=== PATIENT | female | born 1955 | race Caucasian/White ===

== ENCOUNTER → 2022-01-11 09:09 | Outpatient (CLI) | payer MEDICARE, SELFPAY ==
--- NOTE | ~2022-01-11 | CT_ITS ---
EXAMINATION: CT lung screening DATE: 01/11/2022 09:22 INDICATION: Personal history of tobacco dependence TECHNIQUE: Computed tomography (CT) of the chest was performed without intravenous contrast. The dose -length product was 121.81 mGy-cm. Automated exposure control and iterative reconstruction technique were employed. COMPARISON: None FINDINGS: No significant pleural or pericardial effusion. Heart size normal. No thoracic lymphadenopa thy. There is atherosclerosis of the aorta and coronary arteries. Small hiatal hernia. There is emphy sema. No endobronchial lesions. There is a 3 mm pleural-based nodule posteriorly on the right there i s a 2 mm pleural-based nodule on the right at the minor fissure. No pneumothorax. No endobronchial le sions. Mild thoracic spondylosis. No acute osseous abnormality. IMPRESSION: 1. Lung-RADS category 2: Benign appearance or behavior. Continue annual screening with noncontrast lo w-dose chest CT in 12 months. Reviewed, dictated and finalized at location A. IMPRESSION: 1. Lung-RADS category 2: Benign appearance or behavior. Continue annual screeni ng with noncontrast low-dose chest CT in 12 months.
== END ==
PROVIDERS: PCP Student in an Organized Health Care Education/Training Program; Visit Provider Student in an Organized Health Care Education/Training Program
DX: Z12.2 Encounter for screening for malignant neoplasm of respiratory organs (principal); F17.210 Nicotine dependence, cigarettes, uncomplicated
CPT/HCPCS: 71271

== ENCOUNTER → 2022-06-24 14:42 | Outpatient (CLI) | payer MEDICARE, SELFPAY ==
--- NOTE | ~2022-06-24 | DEXA_ITS ---
Bone Density Report Name: NADIRA CARRERA Age: 66 Sex: Female Ethnicity: White Date of : 1955 Indication: postmenopausal; screening for osteoporosis; asthma or emphysema; Referring Provider: Felicia, Dandy Study: Bone densitometry was performed. Exam Date: June 24, 2022 Accession number: [id number] Bone Density: Region BMD T-score Z-score Classification AP Spine (L1-L4) 1.010 -0.3 1.6 Normal Femoral Neck (Left) 0.618 -2.1 -0.4 Osteopenia Total Hip (Left) 0.810 -1.1 0.3 Osteopenia Femoral Neck (Right) 0.648 -1.8 -0.2 Osteopenia Total Hip (Right) 0.745 -1.6 -0.3 Osteopenia Total Hip Mean 0.778 -1.4 0.0 Osteopenia World Health Organization criteria for BMD impression classify patients as: Normal (T-score at or above -1.0), Osteopenia (T-score between -1.0 and -2.5), or Osteoporosis (T-score at or below -2.5). 10-year Fracture Risk(1): Major Osteoporotic Fracture 11% Hip Fracture 1.8% Reported Risk Factors: [place] (), Neck BMD=0.618, BMI=30.8 (1) FRAX(R) Version 3.08. Fracture probability calculated for an untreated patient. Fracture probability may be lower if the patient has received treatment. Clinical Information Provided by Patient: Has used the following medications: Vitamin D, Calcium, MTV Has the following medical conditions: Asthma or Emphysema Patient maximum height was 64.0 Menopause Age: 54 No regular weight bearing exercise Drinks caffeinated beverages Onset of menses at age 13 Number of children 3 Impression: The patient has low bone mass, based on the Left Femoral Neck T-score. The patient has an estimated ten-year risk of hip fracture of 1.8% and an estimated ten-year risk of major fracture of 11%, based on the WHO FRAX algorithm. Discussion: BONE DENSITY IS LOW AT ONE OR MORE SKELETAL SITES. This patient's lowest T-score is low at one or more skeletal sites. It meets the World Health Organization's (WHO) criteria for ?low bone mass? (T-score between -1.0 and -2.5). The patient's 10-year risk of fracture as calculated by FRAX is less than the threshold where pharmacological therapy is recommended by the National Osteoporosis Foundation (NOF). However, all treatment decisions require clinical judgment and consideration of individual patient factors, including patient preferences, comorbidities, previous drug use, risk factors not captured in the FRAX model (e.g., frailty, falls, vitamin D deficiency, increased bone turnover, interval significant decline in bone density) and possible under or overestimation of fracture risk by FRAX. The patient should follow a healthful lifestyle (good nutrition with adequate calcium and vitamin D, and appropriate weight-bearing exercise). Follow-Up: Consider repeating this study in 2 to 3 years to reassess this patient's sta
--- NOTE | ~2022-06-24 | MM_ITS ---
EXAMINATION: MM screening [place] BI w morro HISTORY: Screening mammogram TECHNIQUE: Craniocaudal and mediolateral oblique 3-D tomosynthesis images were obtained and synthetic 2-D images were generated. CAD analysis was submitted and interpreted. COMPARISON: 09/14/2013 BREAST PARENCHYMAL COMPOSITION: There are scattered areas of fibroglandular density. FINDINGS: No suspicious mass, calcification, or architectural distortion are identified in either devon ast to suggest malignancy. There has been no suspicious interval change. IMPRESSION: 1. No mammographic evidence of malignancy. 2. Recommend routine screening mammography in one year. BI-RADS Category 1: Negative Reviewed, dictated and finalized at location A. AL SHELTER SUPERVISOR
== END ==
PROVIDERS: PCP Student in an Organized Health Care Education/Training Program; Visit Provider Student in an Organized Health Care Education/Training Program
DX: Z12.31 Encounter for screening mammogram for malignant neoplasm of breast (principal); Z78.0 Asymptomatic menopausal state; M85.852 Other specified disorders of bone density and structure, left thigh; M85.851 Other specified disorders of bone density and structure, right thigh
CPT/HCPCS: 77063; 77067; 77080

== ENCOUNTER 2022-10-09 09:30 | Emergency (ER) | payer MEDICARE, SELFPAY ==
[2022-10-09] VITALS (12 sets, daily range): BP systolic 119–149; BP diastolic 61–86; PULSE 80–91; RESP 12–20; TEMP 36.4; O2SAT 99–100
--- NOTE | ~2022-10-09 | XR_ITS ---
EXAMINATION: XR chest 2V 10/09/2022 10:14 INDICATION: Seizure. Weakness. Upper back spasm. PROCEDURE: 2 view chest COMPARISON: No prior studies for comparison. FINDINGS: The lungs are clear. The cardiomediastinal silhouette is within normal limits. There are no pleural effusions. There is no pneumothorax suspected. IMPRESSION: 1: NO ACUTE CARDIOPULMONARY DISEASE. Reviewed, dictated and finalized at location []
--- NOTE | ~2022-10-09 | CT_ITS ---
EXAMINATION: CT brain wo con DATE: 10/09/2022 10:06 INDICATION: Seizure. TECHNIQUE: Computed tomography (CT) of the head was performed without intravenous contrast. The dose- length product was 605.33 mGy-cm. Automated exposure control and iterative reconstruction technique w ere employed. COMPARISON: None FINDINGS: No acute intracranial hemorrhage, infarction, mass or mass effect. No ventriculomegaly or m idline shift. Basilar cisterns are patent. There is intracranial atherosclerosis. Brain parenchymal v olume is normal for age. There is intracranial atherosclerosis. Paranasal sinuses are unremarkable. S mall right mastoid effusion. IMPRESSION: 1. No acute intracranial abnormality. Reviewed, dictated and finalized at location []
--- NOTE | 2022-10-09 10:17 | ED.SEIZURE ---
HPI - Seizure General Chief Complaint: Seizure Stated Complaint: SEIZURE Time Seen by Provider: 10/09/22 09:32 History of Present Illness HPI Narrative: Patient is a 66-year-old female who presents to the ER with concerns for seizure. Patient was having some back spasms in her right upper back. Family was nearby. Patient then started to stare off to the right and flex both of her upper arms over to the right side. She began to shake rapidly for approximately 30 seconds. Patient then had 10 minutes of confusion after the seizure episode. Patient has no previous history of seizure. No trauma to the head. Patient has no other complaints at this time. No back pain. She had no loss of urine and had no tongue biting. Related Data Allergies Allergy/AdvReac Type Severity Reaction Status Date / Time simvastatin Allergy Unknown Cramping Verified 10/09/22 09:50 of the Muscles Review of Systems Review of Systems: All systems reviewed & are unremarkable except as noted in HPI and below Constitutional: Constitutional: Denies chills, Denies fatigue and Denies fever(s) ENT: Denies nasal congestion and Denies sore throat Cardiovascular: Cardiovascular: Denies chest pain, Denies rapid heart rate and Denies radiating jaw, neck or arm pain Respiratory: Respiratory: Denies cough and Denies dyspnea Gastrointestinal: Gastrointestinal: Denies abdominal pain, Denies nausea and Denies vomiting Musculoskeletal: Musculoskeletal: Reports back pain, Denies arthralgias and Denies joint swelling Neurologic: Denies headache(s), Denies focal weakness and Denies numbness Comments: + seizure PMFSH Past Medical History Medical History (Updated 10/09/22 @ 12:16 by Juan Alberto Alcantara MD) Diabetes Hyperlipidemia Hypertension Surgical History Surgical History (Updated 10/09/22 @ 10:19 by Juan Alberto Alcantara MD) No pertinent past surgical history Family History Family History (Updated 11/17/15 @ 23:21 by DOCTOR UNKNOWN) Father Hypertension Cerebrovascular accident Family history of diabetes mellitus in first degree relative Mother Patient's mother is in good health Sibling Patient's sister is in good health Patient's brother is in good health Social History Social History Smoking status: Never smoker Alcohol intake: current Exam Narrative: GENERAL: Well-appearing, well-nourished, and in no acute distress. HEAD: Normocephalic, atraumatic. ENT: Mucous membranes moist. Normal tongue. CHEST: Clear to auscultation. No respiratory distress. HEART: Regular rate and rhythm. Normal peripheral pulses. ABDOMEN: Soft, nontender, nondistended. Back: No reproducible midline or paraspinal muscular tenderness to the T/L-spine. EXTREMITIES: Normal range of motion. No edema. SKIN: Warm, dry, no rash. NEURO: No focal deficits. Alert and oriented x3. PSYCH: Normal mood and affect. Course Course Emergency Course: Patient resting comfortably. Educated her and family about lab results and diagnosis. Have consulted neurology, Dr. Leon. Recommends outpatient follow-up and no initiation of antiepileptics. Patient will need to return to the ER should she have an additional seizure. Patient given driving restriction. Vital Signs Vital signs: Vital Signs Temperature 97.6 F 10/09/22 09:32 Pulse Rate 80 10/09/22 09:32 Respiratory Rate 13 10/09/22 09:32 Blood Pressure 132/86 10/09/22 09:32 Pulse Oximetry 100 10/09/22 09:32 Oxygen Delivery Room Air 10/09/22 09:32 Temperature 97.6 F 10/09/22 09:32 Pulse Rate 91 10/09/22 11:30 Respiratory Rate 15 10/09/22 11:30 Blood Pressure 119/61 10/09/22 11:16 Pulse Oximetry 100 10/09/22 11:30 Oxygen Delivery Room Air 10/09/22 09:32 MDM - Seizure Lab Data 10/09/22 10:21 10/09/22 10:21 Labs: Lab Results 10/09/22 10/09/22 Range/Units 10:21 11:25 WBC 10.7 H (4.5-10.0) K/mm
[2022-10-09 10:26] LABS: Basophils Absolute Auto 0.1 K/mm3 (0.0-0.1); Basophils Percent Auto 0.7 % (0.2-1.2); Eosinophils Absolute Auto 0.1 K/mm3 (0-0.3); Eosinophils Percent Auto 1.1 % (0-4.4); Hematocrit 36.7 % (37.0-47.0); Hemoglobin 11.8 g/dL (12.0-15.0); Immature Granulocyte Absolute 0.05 K/mm3 (0.00-0.031); Immature Granulocyte Percent A 0.5 % (0-0.5); Lymphocytes Absolute Auto 2.52 K/mm3 (0.9-3.2); Lymphocytes Percent Auto 23.7 % (18.3-44.2); Mean Corpuscular HGB Conc 32.2 g/dl (32-36); Mean Corpuscular Hemoglobin 28.9 pg (26-34); Mean Corpuscular Volume 89.7 fl (80-100); Mean Platelet Volume 11.9 fl (7.4-10.4); Monocytes Absolute Auto 0.6 K/mm3 (0.1-0.6); Monocytes Percent Auto 5.4 % (2.6-8.5); Neutrophils Absolute Auto 7.3 K/mm3 (1.3-6.7); Neutrophils Percent Auto 68.6 % (45.5-73.1); Platelet Count Result 169 k/mm3 (150-375); Red Blood Count 4.09 M/mm3 (4.2-5.4); Red Cell Distribution Width 13.6 % (11.5-14.5); White Blood Count 10.7 K/mm3 (4.5-10.0)
[2022-10-09 10:35] LABS: Ethanol < 10 mg/dL (<10)
[2022-10-09 10:36] LABS: Alanine Aminotransferase 20 U/L (6-35); Albumin Level 4.9 g/dL (3.5-5.1); Alkaline Phosphatase 61 U/L (38-126); Anion Gap 9 mmol/L (8-16); Aspartate Amino Transferase 21 U/L (14-36); Bilirubin,Total 0.6 mg/dL (0.2-1.3); Blood Urea Nitrogen 29 mg/dL (7-17); Calcium 9.2 mg/dL (8.4-10.2); Carbon Dioxide 24 mmol/L (22-30); Chloride 104 mmol/L (98-107); Estimated CRCL calculation 36 ml/min; Estimated Glomerular Filt Rate 38; Glucose 144 mg/dL (65-110); Potassium 4.6 mmol/L (3.4-5.0); Sodium 137 mmol/L (137-145)
[2022-10-09 11:32] LABS: Appearance Urine Clear (Clear); Bilirubin Urine Negative (Negative); Blood Urine Negative (Negative); Color Urine Yellow (Yellow); Glucose Urine UA Negative (Negative); Ketones Urine Negative (Negative); Leukocyte Esterase Ur Negative LEU/UL (Negative); Nitrate Urine Negative (Negative); Protein Urine Negative (Negative); Specific Grav Ur 1.013 (1.001-1.035); Urobilinogen Urine 0.2 mg/dL (<2.0); pH Urine 5.5 (5.0-9.0)
[2022-10-09 11:42] LABS: Add Urine Microscopic? NO
[2022-10-09 11:47] LABS: Benzodiazepines Screen Urine Negative (Negative)
[2022-10-09 11:50] LABS: Amphetamine Screen Urine Negative (Negative); Cannabinoid Screen Urine Negative (Negative); Cocaine Screen Urine Negative (Negative); Methadone Screen Urine Negative (Negative); Opiate Screen Urine Negative (Negative); Phencyclidine Screen Urine Negative (Negative)
[2022-10-09 11:53] LABS: Barbiturate Screen Urine Negative (Negative)
== END 2022-10-09 12:32 | disposition home or self-care (01) ==
PROVIDERS: Emergency Provider Emergency Medicine; PCP Student in an Organized Health Care Education/Training Program
DX: R56.9 Unspecified convulsions (principal); E11.9 Type 2 diabetes mellitus without complications; E78.5 Hyperlipidemia, unspecified; I10 Essential (primary) hypertension
CPT/HCPCS: 36415; 70450; 71046; 80053; 80307; 81003; 85025; 99284

== ENCOUNTER → 2023-02-04 08:22 | Outpatient (CLI) | payer MEDICARE, SELFPAY ==
--- NOTE | ~2023-02-04 | CT_ITS ---
CT Scan of the Chest without Contrast: Clinical Indication: Lung cancer screening, personal history of nicotine dependence Technique: Contiguous sections were acquired throughout the chest without intravenous contrast. Dose reduction technique was used on this scan by utilizing automated exposure control and iterative recon struction technique. The dose-length product (DLP) was 146.89 mGy-cm. COMPARISON: 01/11/2022 Findings: There is no evidence of any significant mediastinal, hilar or axillary lymphadenopathy. Atherosclerot ic calcifications of the aorta and coronary arteries are present.. There is no evidence of pleural or pericardial effusion. The lungs are clear. No pulmonary nodules or infiltrates are noted. Images through the upper abdomen reveal no abnormalities. Impression: Lung RADS 1: Negative. 12 month follow-up screening CT advised. Reviewed, dictated and finalized at location . Impression: Lung RADS 1: Negative. 12 month follow-up screening CT advised.
== END ==
PROVIDERS: PCP Student in an Organized Health Care Education/Training Program; Visit Provider Student in an Organized Health Care Education/Training Program
DX: Z12.2 Encounter for screening for malignant neoplasm of respiratory organs (principal); F17.210 Nicotine dependence, cigarettes, uncomplicated
CPT/HCPCS: 71271

== ENCOUNTER → 2023-02-04 08:25 | Outpatient (CLI) | payer MEDICARE, SELFPAY ==
--- NOTE | ~2023-02-04 | MR_ITS ---
MRI of the brain Clinical History: Seizure Technique: Axial and sagittal T1-weighted images were acquired. These were followed by axial T2-weigh sunshine, diffusion weighted, gradient, and FLAIR images. Findings: No acute infarct, intracranial hemorrhage, or mass lesion identified. There are minimal chr onic white matter changes in the periventricular white matter bilaterally. Ventricles and subarachnoid spaces are unremarkable. Orbits are unremarkable. Paranasal sinuses and m astoid air cells are clear. Major intracranial flow voids appear intact. Sagittal midline structures are intact. IMPRESSION: No acute infarct, intracranial hemorrhage, or mass lesion. Minimal chronic microvascular ischemic changes. Reviewed, dictated and finalized at location M.
== END ==
PROVIDERS: PCP Student in an Organized Health Care Education/Training Program; Visit Provider Student in an Organized Health Care Education/Training Program
DX: R56.9 Unspecified convulsions (principal)
CPT/HCPCS: 70551

== ENCOUNTER 2024-02-06 08:07 | Outpatient (CLI) | payer MEDICARE, SELFPAY ==
--- NOTE | ~2024-02-06 | CT_ITS ---
CT Scan of the Chest without Contrast: Clinical Indication: Lung cancer screening, nicotine dependence Technique: Contiguous sections were acquired throughout the chest without intravenous contrast. Dose reduction technique was used on this scan by utilizing automated exposure control and iterative recon struction technique. The dose-length product (DLP) was 107.13 mGy-cm. Findings: There is no evidence of any significant mediastinal, hilar or axillary lymphadenopathy. Extensive cor onary artery calcifications are present. There is no evidence of pleural or pericardial effusion. The lungs are clear. No pulmonary nodules or infiltrates are noted. Images through the upper abdomen reveal no abnormalities. Impression: Lung RADS 1: Negative. 12 month follow-up screening CT advised. Reviewed, dictated and finalized at location . Impression: Lung RADS 1: Negative. 12 month follow-up screening CT advised.
== END 2024-02-06 08:08 | disposition home or self-care (01) ==
LOC: MICIMG 08:09
PROVIDERS: PCP Student in an Organized Health Care Education/Training Program; Visit Provider Student in an Organized Health Care Education/Training Program
DX: Z12.2 Encounter for screening for malignant neoplasm of respiratory organs (principal); F17.210 Nicotine dependence, cigarettes, uncomplicated
CPT/HCPCS: 71271

== ENCOUNTER 2024-07-27 06:16 | Emergency (ER) | payer MEDICARE, SELFPAY ==
[2024-07-27] VITALS (19 sets, daily range): BP systolic 105–150; BP diastolic 56–94; PULSE 64–80; RESP 12–25; TEMP 36.3; O2SAT 99–100
--- NOTE | ~2024-07-27 | XR_ITS ---
Clinical Indication: Chest pain AP and lateral views of the chest: Comparison: 10/09/2022 Findings: The lungs are clear, without evidence of focal consolidation or pleural effusion. Cardiome diastinal silhouette is within normal limits. Bones and soft tissues are unremarkable. Impression: Normal chest. Reviewed, dictated and finalized at location . Impression: Normal chest.
--- NOTE | ~2024-07-27 | CT_ITS ---
CTA chest abdomen pelvis Ordering provider: Charley Degn MD History: . CP radiating to back; r/o dissection . Comparison: None. Technique: CT angiogram chest, abdomen and pelvis was performed following timed intravenous injection of contrast. Thin slice axial images and reformatted coronal images were obtained. Three dimensional reformatted images of the chest were also obtained using a [employer] workstation. Radiation reduction t echnique utilized. The dose-length product was 762.96 mGy-cm. 100 mL Omnipaque 350 was given IV. FINDINGS: CHEST: --THORACIC AORTA: Mild atheromatous disease. No aneurysm, dissection or mediastinal hematoma. Ascending aorta measures 3.9 cm. --GREAT VESSELS: Normal as visualized. --PULMONARY ARTERIES: No pulmonary embolus. --VISUALIZED THORACIC INLET: Normal. --MEDIASTINUM: Coronary arteries: Mild atheromatous disease. Heart/other: The heart is not enlarged. Lymph nodes: No mediastinal or hilar adenopathy. normal. --LUNGS: No pulmonary nodules or masses. No infiltrates. No pneumothorax. trace pleural of pleural effusions s een bilaterally posteriorly. --MUSCULOSKELETAL: Superficial soft tissues: The superficial soft tissues are normal. Bones: Age appropriate degenerative changes of the spine. ABDOMEN/PELVIS: --MUSCULOSKELETAL: Bones: Age appropriate degenerative changes of the spine. Superficial soft tissues: The superficial soft tissues are normal. --UPPER ABDOMINAL ORGANS: Liver: Normal. Gallbladder: Normal. Spleen: Normal. Stomach/duodenum: Small sliding hiatus hernia. The patient at a fracture Pancreas: Normal. Adrenals: Normal. Kidneys: Normal. --PELVIC ORGANS: The bladder is normal. No bladder stones. --BOWEL AND MESENTERY: Colon: No evidence of diverticulitis.. Normal appendix. Small Bowel: Normal. No obstruction. Peritoneum/mesentery: No free air or free fluid. No mesenteric lymphadenopathy. --RETROPERITONEUM: No retroperitoneal lymphadenopathy. --ARTERIES: ABDOMINAL AORTA: Mild atheromatous disease. No aneurysm or dissection. RENAL ARTERIES: Atherosclerotic changes of the origin of the left. Otherwise, Normal. CELIAC AXIS: Normal. Atherosclerotic changes near to the origin SMA: Normal. Atherosclerotic changes near to the origin PARISH: Normal. ILIAC AND VISUALIZED FEMORAL ARTERIES: Atherosclerotic changes in both common carotid arteries with mild narrowing. MESENTERIC ARTERIES: Normal. IMPRESSION: CHEST: 1. No evidence of aortic dissection or pulmonary embolism. 2. Trace of bilateral pleural effusions seen posteriorly. ABDOMEN/PELVIS: 1. No evidence of aortic dissection. 2. No evidence of appendicitis, diverticulitis or intestinal obstruction 3. Small sliding hiatus hernia. Reviewed, dictated and finalized at location A.
--- NOTE | 2024-07-27 06:20 | ECG_ITS ---
Test Date: 2024-07-27 06:23:14 Measurements Intervals [place] Rate: 66 P: 1 CA: 151 QRS: 22 QRSD: 79 T: 16 QT: 409 QTc: 432 Interpretive Statements SINUS RHYTHM POSSIBLE LEFT ATRIAL ENLARGEMENT LOW QRS VOLTAGE IN PRECORDIAL LEADS BASELINE ARTIFACT- I, II, III BORDERLINE ECG No previous ECG available for comparison Electronically Signed On 07-27-2024 06:30:37 CDT by Zoltan Andrews D.O.
[2024-07-27 06:29] LABS: Basophils Absolute Auto 0.1 K/mm3 (0.0-0.1); Basophils Percent Auto 0.9 % (0.2-1.2); Eosinophils Absolute Auto 0.4 K/mm3 (0-0.3); Eosinophils Percent Auto 5.5 % (0-4.4); Hematocrit 32.8 % (37.0-47.0); Hemoglobin 10.5 g/dL (12.0-15.0); Immature Granulocyte Absolute 0.04 K/mm3 (0.00-0.031); Immature Granulocyte Percent A 0.5 % (0-0.5); Lymphocytes Absolute Auto 2.23 K/mm3 (0.9-3.2); Lymphocytes Percent Auto 28.6 % (18.3-44.2); Mean Corpuscular Hemoglobin 30.3 pg (26-34); Mean Corpuscular Volume 94.8 fl (80-100); Mean Platelet Volume 11.9 fl (7.4-10.4); Monocytes Absolute Auto 0.6 K/mm3 (0.1-0.6); Monocytes Percent Auto 7.3 % (2.6-8.5); Neutrophils Absolute Auto 4.5 K/mm3 (1.3-6.7); Neutrophils Percent Auto 57.2 % (45.5-73.1); Platelet Count Result 195 k/mm3 (150-375); Red Blood Count 3.46 M/mm3 (4.2-5.4); Red Cell Distribution Width 14.1 % (11.5-14.5); White Blood Count 7.8 K/mm3 (4.5-10.0)
[2024-07-27 06:45] LABS: Alanine Aminotransferase 18 U/L (6-35); Albumin Level 4.2 g/dL (3.5-5.1); Alkaline Phosphatase 63 U/L (38-126); Anion Gap 10 mmol/L (4-12); Aspartate Amino Transferase 19 U/L (14-36); Bilirubin,Total 0.5 mg/dL (0.2-1.3); Blood Urea Nitrogen 25 mg/dL (7-17); Calcium 9.1 mg/dL (8.4-10.2); Carbon Dioxide 22 mmol/L (22-30); Chloride 108 mmol/L (98-107); Estimated CRCL calculation 38 ml/min; Estimated Glomerular Filt Rate 41; Glucose 187 mg/dL (65-110); Lipase 71 U/L (23-300); Potassium 4.8 mmol/L (3.4-5.0); Sodium 140 mmol/L (137-145)
[2024-07-27 06:58] LABS: Troponin I < 0.012 ng/mL (0.000-0.034)
--- OUTSIDE RECORDS SUMMARY | 2024-07-27 07:29 | XMS_ITS | Encounter Summary ---
Author Organization [facility] Address [facility] [place] [address] Care Team Providers Care Stripping Shovel Oiler Name Role Phone Dandy Duarte DO Primary Care Provider + Encounter Details Date Type Department Care Team (Late st Contact Info) Description 06/27/2024 MyChart Message Enc [facility] Family & Internal Medicine [facility] [address] [place] [address] Dandy Duarte DO [facility] [place] [address] Low blood pressure Social History Tobacco Use Types Packs/Day Years Used Date Smoking Tobacco: Former Cigarettes 1 25 Q uit: 03/21/2024 Passive Smoke Exposure: Current Smokeless Tobacco: Never Comments:Provider to counseling services director Alcohol Use Standard Drinks/Week Comments Not Currently 0 (1 standard drink = 0.6 oz pur e alcohol) PHQ-2 Answer Date Recorded Patient Health Questionnaire-2 Score 0 05/19/2024 Comments No Sex and Gender Information Value Date Recorded Sex Assigned at Female 05/05/2024 12:32 PM PRODUCT MANAGEMENT ANALYST Legal Sex Female 10:17 AM PRODUCT MANAGEMENT ANALYST Gender Identity Female 12/25/2021 9:32 AM CDT Sexual Orientation Not on file documented as of this encounter Progress Notes * Dandy Duarte DO - 06/28/2024 10:07 AM CDT Can stay off Jardiance for now and reassess at next OV. May need to cut metoprolol in half if BP continues to have issues. documented in this encounter Plan of Treatment Upcoming Encounters Date Type Department Care Team (Late st Contact Info) Description 08/17/2024 8:20 AM CDT Office Visit [facility] Family & Internal Medicine - [address] [phone] Dandy Duarte DO [address] [place] [phone] 09/03/2024 9:30 AM CDT Office Visit [facility] [phone] Pedrito Rai MD [address] [facility] [address] [place] [phone] documented as of this encounter Visit Diagnoses Not on filedocumented in this encounter Additional Health Concerns Assessment Noted Time PHQ-9 Depression Total Score: 0 05/02/19 21 10:38 AM PRODUCT MANAGEMENT ANALYST documented as of this encounter Care Teams Stripping Shovel Oiler Relationship Specialty Start Date End Date Dandy Duarte DO [address] [place] [phone] PCP - General FAMILY PRACTICE 06/06/22 documented as of this encounter
--- OUTSIDE RECORDS SUMMARY | 2024-07-27 07:29 | XMS_ITS | Continuity of Care Document ---
Author Organization [facility] Address [address] [facility] [place] [address] [place] [address] Phone Care Team Providers Care Automated Logistics Specialist Name Role Phone Reza No MD Unavailable Unavailable Allergies, Adverse Reactions, Alerts Substance Reaction Status Criticality latex Itching Active No Information poison dread extract Hives / Skin RashBlister Active No Information Medications Medication Instructions Dosage Effective Dates (start - stop) Status Comments metformin ER 500 mg tablet,extended release 24 hr take 3 Tablet by oral route every day with the evening meal 1500 MG - Active glimepiride 4 mg tablet take 1 tablet by oral route every day 4 MG - Active Lipitor 40 mg tablet take 1 tablet by oral route every day 40 MG - Active lisinopril 40 mg tablet take 1 tablet by oral route every day 40 MG - Active hydrochlorothiazide 25 mg tablet take 1 tablet by oral route every day 25 MG - Active varenicline 1 mg tablet take 1 tablet by oral route every day with glass of water after meals 1 MG - Active Procedures Procedure Date OFFICE/OUTPATIENT VISIT, NEW Advance Directives Directive Yes / No Effective Date File Name No Information Encounters Encounter Description Practice Location Reason(s) For Visit Diagnoses Date Provider Providers Copied on Encounter OFFICE/OUTPA TIENT VISIT, [facility], [address] [place] [address], [id number], [place] tel:[phone] [facility] HLP (chief complaint) DM (chief complaint) HTN (chief complaint) tobacco1 (chief complaint) Encntr screen mammogram for malignant neoplasm of breastEssential (primary) hypertensionMixed hyperlipidemiaType 2 diabetes mellitus without complicationsOther specified disorder of bone densityTobacco useEncounter for screening for cancer of colon [address], [place], [place], [id number] , [place]. tel:[phone] Family History Family Member Type Diagnosis Age At Onset Brother Problem of 72 for ? heart disea se Sister Problem Diabetes mellitus Sister Problem dementia Mother Problem of 86 from CVA and gloria ntia Father Problem of CAD 63 Payers Payer name Insurance type Covered republican ID Authoriza tion(s) No Information Social History Type Description Quantity Date Captured Comments Alcohol Use Details Caffeine Use Details Unknown Tobacco Use Status Light cigarette smok er (1-9 cigs/day) Smoking Status Heavy tobacco smoker Smoking Tobacco Use Details Cigarette: Age Started: 14 Cigarette: 1 Packs per day Sex Female Vital Signs Date / Time: Height Weight BMI Pulse Rate Blood Pressure Temperature Respiratory Rate Body Surface Area Head Circumference BMI percentile Pulse Ox Inhaled Ox 12:20 PM 63.00 in 172.60 lbs 30.5 7 kg/m eter (2) 84 /min 120/70 mm[Hg] 97.7 F 16 /min Chief Complaint And Reason For Visit From encounter dated '09/25/2023 11:59'. HLP (chief complaint). Description: Pt has HLP Pt take lipitor Pt denies any myalgia DM (chief complaint). Description: Pt has DM. Pt takes metformin and amaryl and her glucose is around 130s. Pt denies any polyuria polydipsia. Pt denies any neuropathy HTN (chief complaint). Description: Pt has HTN, Pt takes lisinopril and hctz and her bp is stable tobacco1 (chief complaint). Description: Pt is long time smoker. Pt denies any sob. Pt takes varenicline once per day only and she has been taking it for about 3 months. Pt states that it does help her with craving for tobacco but she has not been able to quit completely Pt does have some weird dream with med but no depression or anxiety or any suicidal thought. Plan Of Treatment Date Type Action Status Referral Ordered: MAMMOGRAM, SCREENING ordered History Of Present Illness Encounter Date Complaint History Of Prese nt Illness tobacco1 Pt is long time smoker. Pt denies any sob. Pt takes varenicline once per day only and she has been taking it for about 3 months. Pt states that it does help her with craving for tobacco but she has not been able to quit completely Pt does have some weird dream with med but no depression or anxiety or any suicidal thought. HLP Pt has HLP Pt ta ke lipitor Pt denies any myalgia DM Pt has DM. Pt ta kes metformin and amaryl and her glucose is around 130s. Pt denies any polyuria polydipsia. Pt denies any neuropathy HTN Pt has HTN, Pt t akes lisinopril and hctz and her bp is stable Instructions Date Instruction Additional Infor mation No Information Assessments Type Assessment Date assessment Encntr screen mammogram for enzo gnant neoplasm of breast assessment Essential (primary) hypertension assessment Mixed hyperlipidemia assessment Type 2 diabetes mellitus without complications assessment Other specified disorder of bone density assessment Tobacco use assessment Encounter for screening for canc er of colon Mental Status Date Cognitive Assessment Orientation - [place] ed to time, place, person, situation.
--- OUTSIDE RECORDS SUMMARY | 2024-07-27 07:29 | XMS_ITS | Clinical Summary ---
Author Organization [facility] Address [facility] [place] [address] Care Team Providers Care Dry Food Products Mixer Name Role Phone Dandy Duarte Kindra ROBERTO Primary Care Provider + Allergies Active Allergy Reactions Criticality Noted Date Comments Latex Itching Low 09/25/2023 Poison Viv Extract Contact Dermatitis,Hives 09/2023 Simvastatin Other (see comment) 10/09/2022 Cramps. Medications Multiple Vitamins-Mineral s (MULTIVITAL OR) Take 1 tablet by mouth daily. Active calcium carb-cholecalcif tony 600-800 MG-UNIT tablet Take 1 tablet by mouth daily. Active varenicline (CHANTIX) 1 MG tabletIndication s:Nicotine dependence, cigarettes, uncomplicated Take 1 tablet (1 mg total) by mouth 2 (two) times daily. 180 tablet 1 11/13/19 24 Active fluticasone propionate (FLONASE) 50 MCG/ACT nasal sprayIndications :Allergic rhinitis, unspecified seasonality, unspecified trigger SPRAY 1 SPRAY BY NASAL ROUTE EVERY DAY 24 mL 1 01/05/20 24 Active ezetimibe (ZETIA) 10 MG tablet Take 1 tablet (10 mg total) by mouth daily. 30 tablet 8 04/09/20 24 Active albuterol sulfate HFA 108 (90 Base) MCG/ACT inhalerIndicatio ns:Nicotine dependence, cigarettes, uncomplicated INHALE 2 PUFFS BY MOUTH EVERY 6 HOURS NEEDED FOR WHEEZE 18 g 1 04/15/20 24 Active glipiZIDE XL (GLUCOTROL XL) 10 MG 24 hr tabletIndication s:Type 2 diabetes mellitus without complication, without long-term current use of insulin ([facility] HHS/HCC) TAKE 1 TABLET (10 MG TOTAL) BY MOUTH DAILY WITH BREAKFAST. DO NOT BREAK OR CRUSH TABLET 90 tablet 1 05/07/19 25 Active metFORMIN ER (GLUCOPHAGE-XR) 500 MG 24 hr tabletIndication s:Type 2 diabetes mellitus without complication, without long-term current use of insulin (CMS/HCC HHS/HCC) TAKE 3 TABLETS (1,500 MG TOTAL) BY MOUTH DAILY 270 tablet 1 05/07/19 25 Active nitroglycerin (NITROSTAT) 0.[address] 1 tablet (0.4 mg total) under the tongue every 5 (five) minutes as needed for Chest Pain. Maximum of 3 doses. 90 tablet 3 05/06/19 25 2025 Active empagliflozin (JARDIANCE) 10 MG tabletIndication s:Type 2 diabetes mellitus without complication, without long-term current use of insulin (CMS/HCC HHS/HCC),Stage 3a chronic kidney disease (CKD) ([facility]) Take 1 tablet (10 mg total) by mouth daily. 30 tablet 2 05/19/19 25 Active Additional Information Patient not taking.Reported on 07/01/2024 hydroCHLOROthiaz ronen (HYDRODIURIL) 25 MG tabletIndication s:Hypertension associated with type 2 diabetes mellitus (CMS/HCC HHS/HCC) TAKE 1 TABLET (25 MG TOTAL) BY MOUTH DAILY. 90 tablet 1 06/07/19 25 Active atorvastatin (LIPITOR) 80 MG tabletIndication s:Hyperlipidemia associated with type 2 diabetes mellitus (CMS/HCC HHS/HCC) Take 1 tablet (80 mg total) by mouth nightly at bedtime. 90 tablet 1 06/07/19 25 Active metoprolol succinate ER (TOPROL-XL) 25 MG 24 hr tablet Take 1 tablet (25 mg total) by mouth daily. 30 tablet 11 06/11/19 25 Active ibuprofen (MOTRIN) 800 MG tabletIndication s:Arthritis Take 1 tablet (800 mg total) by mouth every 8 (eight) hours as needed. 90 tablet 06/18/19 25 Active aspirin 81 MG chewable tablet Chew 1 tablet (81 mg total) by mouth daily. Active lisinopril (PRINIVIL) 40 MG tabletIndication s:Hypertension associated with type 2 diabetes mellitus (CMS/HCC HHS/HCC) TAKE 1 TABLET BY MOUTH EVERY DAY 90 tablet 07/03/19 25 Active Blood Glucose Monitoring Suppl (ONE TOUCH ULTRA 2) w/Device KitIndications:T ype 2 diabetes mellitus without complication, without long-term current use of insulin ([facility] HHS/HCC) 1 Device by Does not apply route every morning. 1 kit 07/20/19 25 Active OneTouch Delica Lancets 33G MiscIndications: Type 2 diabetes mellitus without complication, without long-term current use of insulin (CMS/HCC HHS/HCC) 1 Device by Does not apply route every morning before breakfast. 100 each 3 07/20/19 25 Active Glucose Blood (BLOOD GLUCOSE TEST STRIPS) StripIndications :Type 2 diabetes mellitus without complication, without long-term current use of insulin ([facility] HHS/HCC) 1 Device by Does not apply route daily with breakfast. 100 strip 3 07/20/19 25 Active lisinopril (PRINIVIL) 40 MG tabletIndication s:Hypertension associated with type 2 diabetes mellitus (CMS/HCC HHS/HCC) Take 1 tablet (40 mg total) by mouth daily. 90 tablet 1 11/13/19 24 2024 Discontinued Active Problems Problem Noted Date Diagnosed Date Dyspnea on exertion 06/11/2024 New onset seizure (CMS/HCC HHS/HCC) 01/08/2023 Stage 3a chronic kidney disease (CKD) 06/06/2022 Class 1 obesity due to exces s calories with serious comorbidity and body mass index (BMI) of 32.0 to 32.9 in adult 05/02/2020 Vitamin D deficiency 05/02/2020 Hyperlipidemia associated wi th type 2 diabetes mellitus (CMS/HCC HHS/HCC) 09/26/2016 Diabetes mellitus (CMS/HCC HHS/HCC) 08/12/2016 Predisposition to allergic reaction 07/22/2016 Hypertension associated with type 2 diabetes mellitus (CMS/HCC HHS/HCC) 06/26/2016 History of hepatitis C 06/26/2016 Tobacco dependence syndrome 06/26/2016 Resolved Problems Problem Noted Date Diagnosed Date Resolved Date Family history of colon cancer 05/02/2020 12/01/2020 Encounters Date Type Department Care Team Description 07/19/2024 MyChart Message Enc [facility] Family & Internal Medicine [address] [phone] Dandy Duarte DO Request for glucose meter and supplies 07/05/2024 8:42 PM CDT - 07/05/2024 11:59 PM CDT Hospital Encounter [facility] [address] [place] [address] Bhanu Cramer MD Discharge Disposition: Home or Self Care (Routine Discharge) 07/05/2024 1:20 PM CDT Laboratory Only [facility] Internal [address] [phone] Dandy Duarte DO 07/05/2024 Travel 07/02/2024 Telephone [facility] [address] [address] Pedrito Rai MD Record Request 07/01/2024 8:41 AM CDT Anesthesia Event [facility] [place] [address] Jose Burkett MD 07/01/2024 6:09 AM CDT - 07/01/2024 1:40 PM CDT Hospital Encounter [facility] [place] [address] Pedrito Rai MD Satwani, Shiyam K, MD White, Jenna M, CRNA Discharge Disposition: Home or Self Care (Routine Discharge) 07/01/2024 Travel 06/28/2024 Telephone [facility] [address] [address] Ruchi Bethea, BANK RUNNER Results 06/27/2024 MyChart Message Enc [facility] Internal [address] [phone] Dandy Duarte DO Low blood pressure 06/24/2024 5:28 PM MOLD BREAKER - 06/24/2024 11:59 PM MOLD BREAKER Hospital Encounter [facility] [address] [place] [address] Pedrito Rai MD Discharge Disposition: Home or Self Care (Routine Discharge) 06/24/2024 9:20 AM MOLD BREAKER Laboratory Only [facility] Family & Internal [address] [phone] Dandy Duarte DO 06/24/2024 Travel 06/11/2024 8:30 AM MOLD BREAKER Office Visit [facility] [phone] Pedrito Rai MD Coronary Artery Disease (2mo) 06/11/2024 Hospital Orders Only [facility] [place] [address] [place] [address] Bhanu Cramer MD 06/11/2024 Telephone [facility] [place] [address] [place] [address] Pedrito Rai MD Schedule Test 06/11/2024 Travel 06/08/2024 Telephone [facility], [address] [address] Ruchi Bethea, BANK RUNNER Results 06/03/2024 2:35 PM MOLD BREAKER - 06/03/2024 11:59 PM MOLD BREAKER Hospital Encounter [facility] Non [facility]vasive [facility]iology [facility] [place] [address] Pedrito Rai MD Discharge Disposition: Home or Self Care (Routine Discharge) 06/03/2024 Travel 05/19/2024 8:00 AM MOLD BREAKER Office Visit [facility] Family & Internal [address] [phone] Dandy Duarte DO Diabetes (The patient presents for routine follow up. No questions or concerns. ) 05/19/2024 Travel 05/06/2024 Telephone [facility], [address] [address] Ruchi Bethea, BANK RUNNER Results 05/05/2024 12:35 PM MOLD BREAKER - 05/05/2024 11:59 PM MOLD BREAKER Hospital Encounter [facility] [place] [address] Pedrito Rai MD Discharge Disposition: Home or Self Care (Routine Discharge) 05/05/2024 Travel from Last 3 Months Immunizations Name Administration Dates Next Due COVID-19 Vaccine (Generic) 10/09/2020,09/18/2020 Fluzone High Dose (IIV, trivalent, 0.5mL) 2023 Fluzone High Dose - >Age 65 (Prefilled Syringe) 02/15/2022,12/22/2020 Influenza Adult (Generic) 12/21/2022,02/15/2022 [place] Coverage COVID-19 (ORIGINAL FO RMULATION, PURPLE CAP) mRNA, LNP-S, PF, 30 MCG/0.3 ML DOSE 03/29/2021,10/09/2020,09/18/2020 Pneumococcal (Pneumovax 23) 12/28/2021 Pneumococcal (Prevnar 13) 12/01/2020 Shingrix 01/22/2021,11/01/2020 Tdap (Generic) 06/28/2014 Family History Medical History Relation Comments Aneurysm Brother 1 Hypertension Brother 1 Aneurysm Brother 2 Asthma Daughter Diabetes Father Heart Attack Father Heart Disease Father Hypertension Father Alzheimers Mother Stroke Mother Diabetes Sister Relation Status Comments Brother 1 Alive Brother 2 Daughter Father Maternal Grandfather Maternal Grandmother Mother Paternal Grandfather Paternal Grandmother Sister Alive Social History Tobacco Use Types Packs/Day Years Used Date Smoking Tobacco: Former Cigarettes 1 25 Q uit: 03/21/2024 Passive Smoke Exposure: Current Smokeless Tobacco: Never Tobacco Cessation:Counseling Given: Not Answered Comments:Provider to career development counselor Alcohol Use Standard Drinks/Week Comments Not Currently 0 (1 standard drink = 0.6 oz pur e alcohol) PHQ-2 Answer Date Recorded Patient Health Questionnaire-2 Score 0 05/19/2024 Comments No Sex and Gender Information Value Date Recorded Sex Assigned at Female 05/05/2024 12:32 PM MOLD BREAKER Legal Sex Female 10:17 AM MOLD BREAKER Gender Identity Female 12/25/2021 9:32 AM CDT Sexual Orientation Not on file Last Filed Vital Signs Vital Sign Reading Time Taken Comments Blood Pressure 142/97 07/01/2024 1:05 PM CDT Pulse 68 07/01/2024 1:15 PM CDT Temperature 36.3 C (97.4 F) 07/01/2024 7:30 AM CDT Respiratory Rate 17 07/01/2024 1:15 PM CDT Oxygen Saturation 100% 07/01/2024 1:15 PM CDT Inhaled Oxygen Concentration - - Weight 81.1 kg (178 lb 12.7 oz) 07/01/2024 7:30 AM CDT Height 160 cm (5' 3 ) 07/01/2024 7:30 AM CDT Body Mass Index 31.67 07/01/2024 7:30 AM CDT Plan of Treatment Upcoming Encounters Date Type Department Care Team (Late st Contact Info) Description 08/17/2024 8:20 AM CDT Office Visit [facility] Family & Internal Medicine - [address] [phone] Dandy Duarte DO [address] [place] [phone] 09/03/2024 9:30 AM CDT Office Visit [facility] [phone] Pedrito Rai MD 3 [facility] [address] [place] [phone] Health Maintenance Due Date Last Done Comments Lung Cancer Screening 2004 Annual Medicare Wellness Visit 12/07/2019 Diabetes: Retinopathy Eye Exam 01/15/2023 01/15/2022 COVID-19 Vaccine ( season) 2024 12/23/2023, 12/21/2022, 03/29/2021, Additional history exists DTaP, Tdap and Td Vaccines (2 - Td or Tdap) 06/28/2024 06/28/2014 Mammogram Screening 11/05/2024 11/06/2023, Hemoglobin A1C 11/16/2024 05/19/2024, 01/20, 11/13/2023, Additional history exists Colorectal Cancer Screening FIT-DNA (3 Years) 01/08/2025 01/08/2022, 01/08/2022 Kidney Health Evaluation 02/24/2025 02/25/2024 Lipid Panel 02/24/2025 02/25/2024, 12/21, 12/28/2021, Additional history exists RSV Immunization or 60+ Years (1 - Risk 60-74 years 1-dose series) 05/19/2025 Postponed fro m 2014 (Going to Outside Clinic) Zoster Vaccines Completed 01/22/2021, 11/01/2020 Pneumococcal Vaccine: 65+ Years Completed 12/28/2021, 12/01/2020 Dexa Scan (General) Completed 06/24/2022 PHQ-2 (Physician [place]) Completed 05/19/2024 Hepatitis C Completed 06/11/2024, 04/21, 05/02/2020, Additional history exists Meningococcal B Vaccine Aged Out No l onger eligible based on patient's age to complete this topic Meningococcal Vaccine Aged Out No mony dali eligible based on patient's age to complete this topic RSV Immunizations Under 20 Months Aged Out No longer eligible based on patient's age to complete this topic Procedures Procedure Name Priority Date/Time Associated Diagnosis Comments COLLECTION VENOUS BLOOD VENIPUNCTURE Routine 07/05/2024 1:23 PM CDT Abnormal stress test UREA NITROGEN, BLOOD (BUN) QUANT Routine 07/05/2024 1:20 PM CDT CREATININE Routine 07/05/2024 1:20 PM CDT HEMOGLOBIN AND HEMATOCRIT Routine 07/05/2024 1:20 PM CDT ECG 12-LEAD Routine 07/01/2024 11:04 AM CDT Mitral valve stenosis, unspecified etiology Abnormal stress test XA RHC+LHC POSS Routine 07/01/2024 10:11 AM CDT Mitral valve stenosis, unspecified etiology Abnormal stress test CG8 PLUS-ISTAT Routine 07/01/2024 10:02 AM CDT CG8 PLUS-ISTAT Routine 07/01/2024 9:57 AM CDT USE TRANSESOPHAGEAL ECHO Routine 07/01/2024 9:10 AM CDT Mitral valve stenosis, unspecified etiology Abnormal stress test CG8 PLUS-ISTAT Routine 07/01/2024 9:01 AM CDT POCT GLUCOSE - CHRISTENSEN DOCKED DEVICE Routine 07/01/2024 7:48 AM CDT COLLECTION VENOUS BLOOD VENIPUNCTURE Routine 06/24/2024 10:45 AM MOLD BREAKER Mitral valve stenosis, unspecified etiology Abnormal stress test CBC W/DIFF AUTOMATED Routine 06/24/2024 9:28 AM MOLD BREAKER BASIC METABOLIC PANEL Routine 06/24/2024 9:28 AM MOLD BREAKER PROTHROMBIN TIME, VENOUS Routine 06/24/2024 9:28 AM MOLD BREAKER USE ECHOCARDIOGRAM Routine 06/03/2024 4: 00 PM MOLD BREAKER Coronary artery calcification seen on CT scan Hypertension associated with type 2 diabetes mellitus ([facility] HHS/HCC) Abnormal EKG COLLECT.CAPILLARY (FNGR,HEEL,EAR) Routine 05/19/2024 8:10 AM MOLD BREAKER Type 2 diabetes mellitus without complication, without long-term current use of insulin ([facility] HHS/HCC) HEMOGLOBIN, GLYCOSYLATED Routine 05/19/2024 Type 2 diabetes mellitus without complication, without long-term current use of insulin ([facility]/HCC HHS/HCC) NM EXER NUC STRESS TEST 1 DAY W TRACING Routine 05/05/2024 2:04 PM MOLD BREAKER Coronary artery calcification seen on CT scan Hypertension associated with type 2 diabetes mellitus (CMS/HCC HHS/HCC) Abnormal EKG CARDIOLOGY STRESS TEST ONLY, EXERCISE Routine 05/05/2024 12:45 PM MOLD BREAKER Coronary artery calcification seen on CT scan Hypertension associated with type 2 diabetes mellitus (CMS/HCC HHS/HCC) Abnormal EKG New onset seizure (CMS/HCC HHS/HCC) Vitamin D deficiency Class 1 obesity due to excess calories with serious comorbidity and body mass index (BMI) of 32.0 to 32.9 in adult Stage 3a chronic kidney disease (CKD) (CMS/HCC) Tobacco dependence syndrome Hyperlipidemia associated with type 2 diabetes mellitus (CMS/HCC HHS/HCC) History of hepatitis C Diabetes mellitus (CMS/HCC HHS/HCC) LIPID PANEL Routine 02/25/2024 8:49 AM MOLD BREAKER Type 2 diabetes mellitus without complication, without long-term current use of insulin (CMS/HCC HHS/HCC) Hyperlipidemia associated with type 2 diabetes mellitus (CMS/HCC HHS/HCC) Stage 3a chronic kidney disease (CKD) (CMS/HCC) MAMMOGRAM GENERIC (SCAN ORDER) 11/06/2023 BONE DENSITY GENERIC (SCAN ORDER) 06/24/2022 DIABETIC RETINOPATHY EXAM (NEGATIVE)(SCAN ORDER) Routine 01/15/2022 COLOGUARD (EXACT SCIENCE) Routine 01/08/2022 3:45 AM CDT Screening for malignant neoplasm of colon from Last 3 Months or Most Recently Relevant to Health Maintenance Results * (ABNORMAL) HEMOGLOBIN AND HEMATOCRIT (07/05/2024 1:20 PM CDT) HGB 10.9(L) 12.0 - 16.0 G/DL 07/05/2024 8:50 PM CDT [facility] HCT 33.2(L) 36.0 - 47.0 % 07/05/2024 8:50 PM CDT [facility] 07/05/2024 1:20 PM CDT us Bhanu Cramer MD LABORATORY Final Result Performing Organization Address City/[facility]/ZIP Co de Phone Number [facility] [address] [place] [address], [phone] * (ABNORMAL) UREA NITROGEN, BLOOD (BUN) QUANT (07/05/2024 1:20 PM CDT) BUN 29(H) 7 - 18 MG/DL 07/05/2024 9:06 PM CDT [facility] 07/05/2024 1:20 PM CDT us Bhanu Cramer MD LABORATORY Final Result Performing Organization Address [facility]/[place]UST Co de Phone Number [facility] [address] [place] [address], [phone] * (ABNORMAL) CREATININE (07/05/2024 1:20 PM CDT) CREATININE S/P/B 1.49(H) 0.55 - 1.02 MG/DL 07/05/2024 9:06 PM CDT [facility] GFR ESTIMATE 38(L) >90 ML/MIN/1. 73 M2 07/05/2024 9:06 PM CDT [facility] GFR NOTES GFR REFERENCE S: 07/05/2024 9:06 PM CDT [facility] Comment: THE ESTIMATED GFR IS CALCULATED USING THE 2020 CKD-EPI EQUATION. THE FOLLOWING CATEGORIES FOR GRADING RENAL FUNCTION ARE RECOMMENDED BY THE INTERNATIONAL SOCIETY OF NEPHROLOGY (KDIGO 2012 CLINICAL PRACTICE GUIDELINE). G1,NORMAL OR HIGH: >89 ml/min/1.73 m2 G2,MILDLY DECREASED: 60-89 ml/min/1.73 m2 G3A,MILDLY TO MODERATELY DECREASED: 45-59 ml/min/1.73 m2 G3B,MODERATELY TO SEVERELY DECREASED: 30-44 ml/min/1.73 m2 G4,SEVERELY DECREASED: 15-29 ml/min/1.73 m2 G5,KIDNEY FAILURE: <15 ml/min/1.73 m2 07/05/2024 1:20 PM CDT Bhanu Cramer MD LABORATORY Final Result [facility] [address] [place] [address], [phone] * ECG 12 lead (07/01/2024 11:04 AM CDT) 07/01/2024 11:0 4 AM CDT Narrative [facility] - 07/01/2024 6:52 PM CDT [address] Test Date: 2024-07-01 Pat Name: XIMENA DEBI Department: 40 [facility] Gender: Female Photographer Motion Picture: Ashish : 1955 Requested By: BHANU CRAMER Order Number: [id number] Reading MD: Bhanu Cramer Measurements Intervals [place] Rate: 65 P: 38 OR: 154 QRS: 44 QRSD: 87 T: 20 QT: 416 QTc: 434 Interpretive Statements SINUS RHYTHM POSSIBLE LEFT ATRIAL ENLARGEMENT [-0.1mV P-WAVE IN V1/V2] Compared to ECG 04/09/2024 08:42:10 No significant changes Procedure Note Bhanu Cramer MD - 07/01/[address] Test Date: 2024-07-01 Pat Name: XIMENA CARRERA Department: 40 [facility] Gender: Female Photographer Motion Picture: Ashish : 1955 Requested By: BHANU CRAMER Order Number: [id number] Reading MD: Bhanu Cramer Measurements Intervals [place] Rate: 65 P: 38 OR: 154 QRS: 44 QRSD: 87 T: 20 QT: 416 QTc: 434 Interpretive Statements SINUS RHYTHM POSSIBLE LEFT ATRIAL ENLARGEMENT [-0.1mV P-WAVE IN V1/V2] Compared to ECG 04/09/2024 08:42:10 No significant changes Bhanu Cramer MD ECG ORDERABLES Final Result [facility] * XA RHC+LHC POSS (07/01/2024 10:11 AM CDT) Anatomical Region Laterality Modality Cardiac Materials Technician 07/01/2024 8:00 AM CDT Pedrito Rai MD CURB ATTENDANT Final Result * (ABNORMAL) CG8 Plus-ISTAT (07/01/2024 10:02 AM CDT) Only the most recent of3 resultswithin the time period is included. Pathologist [facility] TECH CODE [id number] 07/01/2024 1:58 PM CDT [facility] PH ARTERIAL 7.29(LL) 7.35 - 7.45 07/01/2024 1:58 PM CDT [facility] Comment:POINT OF CARE TESTIN G, CRITICAL RESULT GIVEN TO DIGITAL MEDIA SALES CONSULTANT. PCO2 39.0 35.0 - 45.0 MM HG 07/01/2024 1:58 PM CDT [facility] PO2 31(LL) 80.0 - 100.0 MM HG 07/01/2024 1:58 PM CDT [facility] Comment:POINT OF CARE TESTIN G, CRITICAL RESULT GIVEN TO DIGITAL MEDIA SALES CONSULTANT. BASE DEFICIT 8.0 MEQ/L 07/01/2024 1:58 PM CDT [facility] BICARB ARTERIAL 19.0(L) 22.0 - 26.0 MEQ/L 07/01/2024 1:58 PM CDT [facility] TOTAL CO2 ARTERIAL 20 MEQ/L 07/01/2024 1:58 PM CDT [facility] O2 Saturation 53.0(LL) 90.0 - 100.0 % 07/01/2024 1:58 PM CDT [facility] Comment:POINT OF CARE TESTIN G, CRITICAL RESULT GIVEN TO DIGITAL MEDIA SALES CONSULTANT. SODIUM BLOOD GAS 141 135.0 - 145.0 MMOL/L 07/01/2024 1:58 PM CDT [facility] POTASSIUM BLOOD GAS 4.4 3.5 - 4.5 MMOL/L 07/01/2024 1:58 PM CDT [facility] CALCIUM BLOOD GAS 1.3 1.1 - 1.3 MMOL/L 07/01/2024 1:58 PM CDT [facility] GLUCOSE POC 146(H) 70 - 110 MG/DL 07/01/2024 1:58 PM CDT [facility] HEMATOCRIT BLOOD GAS 28.0(L) 38.0 - 48.0 % 07/01/2024 1:58 PM CDT [facility] HEMOGLOBIN BLOOD GAS 9.5(L) 12.0 - 16.0 G/DL 07/01/2024 1:58 PM CDT [facility] 07/01/2024 10:0 2 AM CDT us Bhanu Cramer MD POINT OF CARE TEST ORDERABLE S Final Result [facility] [address] [place] [address], [place] [phone] * USE TRANSESOPHAGEAL ECHO (07/01/2024 9:10 AM CDT) Anatomical Region Laterality Modality Cardiac Materials Technician, Cath L ab, Radiographic Imaging 07/01/2024 7:38 AM CDT Narrative 07/01/2024 6:08 PM CDT EMY Report Pat.Name: XIMENA CARRERA Pat.ID: [id number] .Date: 07/01/2024 Refer.MD: [id number] ROSALIO Toussaint EWDPROV EWDPROV Exam Time: 7:38:00 AM Study Type:TRANSESOPHAGEAL ECHO (EMY) Height: 63 in Weight: 178 lb BSA: 1.84 m2 Age: 8 1955,68Y Sex: F BP: 143/84 HR: 68 bpm Sonogrphr: Verónica Duran [facility] Pat. Stat.:Outpatient Reason for Study:Mitral stenosis Procedures: 2D, Doppler, Color Flow, Intraveneous saline contrast was used to help determine presence of intracardiac shunting. Transesophageal ++++++++++++++++++++++++++++++++++++ SUMMARY: ++++++++++++++++++++++++++++++++++++ Normal bi-ventricular size and function. The left atrial size is severely enlarged. Left atrial appendage shows no evidence of thrombus. Moderately calcified mitral valve leaflets with restricted mobility. Mild mitral regurgitation. Severe mitral valve stenosis. The mean gradient across the mitral valve is 11 at a heart rate of 69. The mitral valve area by pressure half time is 1.48cm2. Mild tricuspid regurgitation. Right ventricular systolic pressure is 42 mm Hg (+CVP). ++++++++++++++++++++++++++++++++++++ FINDINGS: ++++++++++++++++++++++++++++++++++++ EMY: The patient was counseled and an informed consent was obtained. The posterior pharynx was anesthetized. The patient was placed in a left lateral recumbent position and a plastic bite was inserted into the mouth. IV sedation was administered. LV: The left ventricular size is normal. The left ventricular systolic function is normal. RV: The right ventricular size is normal. Right ventricular systolic function is normal. LA: The left atrial size is severely enlarged. Left atrial appendage shows no evidence of thrombus. RA: Right atrial size is normal. IAS: Atrial septum appears intact. The agitated saline injection showed no clear evidence of shunting into the left atrium, consistent with no patent foramen ovale. CHAIM: No evidence of pericardial effusion. AO: Normal aortic root. AV: The aortic valve is trileaflet. No evidence of aortic valve stenosis. No evidence of aortic valve regurgitation. MV: Mild mitral regurgitation. Severe mitral valve stenosis. The mean gradient across the mitral valve is 11 at a heart rate of 69. The mitral valve area by pressure half time is 1.48cm2. PV: Trace pulmonic regurgitation. TV: Mild tricuspid regurgitation. Right ventricular systolic pressure is 42 mm Hg (+CVP). ++++++++++++++++++++++++++++++++++++ EMY: ++++++++++++++++++++++++++++++++++++ Pre EMY BP HR Post EMY BP HR 143/84 68 86/52 70 Meds: Lidocaine gel was applied to throat. Propofol or Diprivan administered by Anesthesia Staff ++++++++++++++++++++++++++++++++++++ MEASUREMENTS: ++++++++++++++++++++++++++++++++++++ DOPPLER MV Forward Flow MVA P1/2t 1.65 cm2 (4-6)* MV mnPG 11 mmHg MV P1/2t 133 msec (30-60)+* MV pkPG 22 mmHg TV Regurg Flow TV pkPG 47 mmHg TV pkVel 343 cm/s (30-70)* <Electronic Signature> 07/01/2024 06:08 PM Bhanu Cramer M.D. Procedure Note Bhanu Cramer MD - 07/01/2024 EMY Report Pat.Name: XIMENA CARRERA Pat.ID: [id number] .Date: 07/01/2024 : [id number] ROSALIO Toussaint EWDPROV EWDPROV Exam Time: 7:38:00 AM Study Type:TRANSESOPHAGEAL ECHO (EMY) Height: 63 in Weight: 178 lb BSA: 1.84 m2 Age: 8 1955,68Y Sex: F BP: 143/84 HR: 68 bpm Sonogrphr: Verónica Duran RD, [facility] Pat. Stat.:Outpatient Reason for Study:Mitral stenosis Procedures: 2D, Doppler, Color Flow, Intraveneous saline contrast was used to help determine presence of intracardiac shunting. Transesophageal ++++++++++++++++++++++++++++++++++++ SUMMARY: ++++++++++++++++++++++++++++++++++++ Normal bi-ventricular size and function. The left atrial size is severely enlarged. Left atrial appendage shows no evidence of thrombus. Moderately calcified mitral valve leaflets with restricted mobility. Mild mitral regurgitation. Severe mitral valve stenosis. The mean gradient across the mitral valve is 11 at a heart rate of 69. The mitral valve area by pressure half time is 1.48cm2. Mild tricuspid regurgitation. Right ventricular systolic pressure is 42 mm Hg (+CVP). ++++++++++++++++++++++++++++++++++++ FINDINGS: ++++++++++++++++++++++++++++++++++++ EMY: The patient was counseled and an informed consent was obtained. The posterior pharynx was anesthetized. The patient was placed in a left lateral recumbent position and a plastic bite was inserted into the mouth. IV sedation was administered. LV: The left ventricular size is normal. The left ventricular systolic function is normal. RV: The right ventricular size is normal. Right ventricular systolic function is normal. LA: The left atrial size is severely enlarged. Left atrial appendage shows no evidence of thrombus. RA: Right atrial size is normal. IAS: Atrial septum appears intact. The agitated saline injection showed no clear evidence of shunting into the left atrium, consistent with no patent foramen ovale. CHAIM: No evidence of pericardial effusion. AO: Normal aortic root. AV: The aortic valve is trileaflet. No evidence of aortic valve stenosis. No evidence of aortic valve regurgitation. MV: Mild mitral regurgitation. Severe mitral valve stenosis. The mean gradient across the mitral valve is 11 at a heart rate of 69. The mitral valve area by pressure half time is 1.48cm2. PV: Trace pulmonic regurgitation. TV: Mild tricuspid regurgitation. Right ventricular systolic pressure is 42 mm Hg (+CVP). ++++++++++++++++++++++++++++++++++++ EMY: ++++++++++++++++++++++++++++++++++++ Pre EMY BP HR Post EMY BP HR 143/84 68 86/52 70 Meds: Lidocaine gel was applied to throat. Propofol or Diprivan administered by Anesthesia Staff ++++++++++++++++++++++++++++++++++++ MEASUREMENTS: ++++++++++++++++++++++++++++++++++++ DOPPLER MV Forward Flow MVA P1/2t 1.65 cm2 (4-6)* MV mnPG 11 mmHg MV P1/2t 133 msec (30-60)+* MV pkPG 22 mmHg TV Regurg Flow TV pkPG 47 mmHg TV pkVel 343 cm/s (30-70)* <Electronic Signature> 07/01/2024 06:08 PM Bhanu Cramer M.D. Pedrito Rai MD ECHO Final Result * (ABNORMAL) POCT glucose (07/01/2024 7:48 AM CDT) GLUCOSE POC 154(H) 70 - 99 mg/dL 07/01/2024 8:12 AM CDT [facility] 07/01/2024 7:48 AM CDT Bhanu Cramer MD POCT ORDERABLES - DEVICE Fin al Result Performing Organization Address [facility]/ZIP Co de Phone Number [facility] [address] [place] [address], [place] [phone] * PROTIME/INR, VENOUS (PROTHROMBIN TIME) (06/24/2024 9:28 AM MOLD BREAKER) PROTIME 10.9 9.4 - 12.5 SEC 06/24/2024 6:07 PM MOLD BREAKER [facility] INR 0.9 0.8 - 1.1 06/24/2024 6:07 PM MOLD BREAKER [facility] 06/24/2024 9:28 AM MOLD BREAKER Pedrito Rai MD LABORATORY Final Result Performing Organization Address [facility]/RUST Co de Phone Number [facility] [address] [place] [address], [place] [phone] [id number] * (ABNORMAL) BASIC METABOLIC PANEL (06/24/2024 9:28 AM MOLD BREAKER) SODIUM S/P/B 138 136 - 145 MMOL/L 06/24/2024 6:28 PM MOLD BREAKER [facility] POTASSIUM S/P/B 4.5 3.5 - 5.1 MMOL/L 06/24/2024 6:28 PM MOLD BREAKER [facility] CHLORIDE S/P/B 105 97 - 115 MMOL/L 06/24/2024 6:28 PM [facility] CO2 24.4 21.0 - 32.0 MMOL/L 06/24/2024 6:28 PM MOLD BREAKER [facility] GLUCOSE 207(H) 74 - 106 MG/DL 06/24/2024 6:28 PM MOLD BREAKER [facility] BUN 36(H) 7 - 18 MG/DL 06/24/2024 6:28 PM [facility] CREATININE S/P/B 1.77(H) 0.55 - 1.02 MG/DL 06/24/2024 6:28 PM [facility] CALCIUM S/P/B 9.1 8.5 - 10.1 MG/DL 06/24/2024 6:28 PM MOLD BREAKER [facility] ANION GAP 8.6 2.0 - 10.0 MMOL/L 06/24/2024 6:28 PM [facility] OSMOLALITY (CALC) 300 MOSM/KG 025 6:28 PM [facility] Comment:REFERENCE RANGE NOT ESTABLISHED GFR ESTIMATE 31(L) >90 ML/MIN/1. 73 M2 06/24/2024 6:28 PM [facility] GFR NOTES GFR REFERENCE S: 06/24/2024 6:28 PM [facility] Comment: THE ESTIMATED GFR IS CALCULATED USING THE 2020 CKD-EPI EQUATION. THE FOLLOWING CATEGORIES FOR GRADING RENAL FUNCTION ARE RECOMMENDED BY THE INTERNATIONAL SOCIETY OF NEPHROLOGY (KDIGO 2012 CLINICAL PRACTICE GUIDELINE). G1,NORMAL OR HIGH: >89 ml/min/1.73 m2 G2,MILDLY DECREASED: 60-89 ml/min/1.73 m2 G3A,MILDLY TO MODERATELY DECREASED: 45-59 ml/min/1.73 m2 G3B,MODERATELY TO SEVERELY DECREASED: 30-44 ml/min/1.73 m2 G4,SEVERELY DECREASED: 15-29 ml/min/1.73 m2 G5,KIDNEY FAILURE: <15 ml/min/1.73 m2 06/24/2024 9:28 AM MOLD BREAKER Pedrito Rai MD LABORATORY Final Result [facility] [address] [place] [address], [id number] * (ABNORMAL) CBC W/DIFF AUTOMATED (06/24/2024 9:28 AM [facility]) [facility] WBC 8.06 4.00 - 10.80 x10'3/uL 06/24/2024 6:01 PM [facility] RBC 3.73(L) 4.10 - 5.40 x10'6/uL 06/24/2024 6:01 PM [facility] HGB 11.3(L) 12.0 - 16.0 G/DL 06/24/2024 6:01 PM [facility] HCT 34.9(L) 36.0 - 47.0 % 06/24/2024 6:01 PM [facility] MCV 93.6 78.0 - 100.0 FL 06/24/2024 6:01 PM [facility] MCH 30.3 27.0 - 31.0 PG 06/24/2024 6:01 PM [facility] MCHC 32.4(L) 33.0 - 36.0 G/DL 06/24/2024 6:01 PM [facility] RDW 13.3 11.5 - 14.5 % 06/24/2024 6:01 PM [facility] PLT 200 150 - 350 x10'3/uL 06/24/2024 6:01 PM [facility] MPV 13.3(H) 7.4 - 10.4 FL 06/24/2024 6:01 PM [facility] DIFFERENTIAL TYPE AUTOMATED DIFFERENTIAL 06/24/2024 6:01 PM [facility] SEG NEUTROPHILS 62.9 % 6:01 PM [facility] LYMPHOCYTES 25.6 % 06/24/2024 6:01 PM [facility] MONOCYTES 5.6 % 06/24/2024 6:01 PM [facility] EOSINOPHILS 4.8 % 06/24/2024 6:01 PM [facility] BASOPHILS 0.7 % 06/24/2024 6:01 PM [facility] IMMATURE GRANS % 0.4 % 06/25/19 6:01 PM MOLD BREAKER [facility] ABS. NEUTROPHILS 5.07 1.60 - 8.30 x10'3/uL 06/24/2024 6:01 PM MOLD BREAKER [facility] ABS. LYMPHOCYTES 2.06 0.80 - 4.70 x10'3/uL 06/24/2024 6:01 PM MOLD BREAKER [facility] ABS. MONOCYTES 0.45 0.00 - 1.50 x10'3/uL 06/24/2024 6:01 PM MOLD BREAKER [facility] ABS. EOSINOPHILS 0.39 0.00 - 0.40 x10'3/uL 06/24/2024 6:01 PM MOLD BREAKER [facility] ABS. BASOPHILS 0.06 0.00 - 0.20 x10'3/uL 06/24/2024 6:01 PM MOLD BREAKER [facility] ABS. IMMATURE GRANULOCYTES 0.03 0.00 - 0.03 x10'3/uL 06/24/2024 6:01 PM MOLD BREAKER [facility] ABS. NUCLEATED RBC'S 0.00 0.00 - 0.01 x10'3/uL 06/24/2024 6:01 PM MOLD BREAKER [facility] NRBC % 0.0 % 06/24/2024 6:01 PM MOLD BREAKER [facility] 06/24/2024 9:28 AM MOLD BREAKER us Pedrito Rai MD LABORATORY Final Result [facility] [address] [place] [address], [id number] * USE ECHOCARDIOGRAM (06/03/2024 4:00 PM MOLD BREAKER) Anatomical Region Laterality Modality Cardiac Echocardiogram 06/03/2024 2:48 PM MOLD BREAKER Narrative 06/03/2024 7:55 PM MOLD BREAKER Echocardiography Report Pat.Name: XIMENA CARRERA Pat.ID: [id number] .Date: 06/03/2024 Exam Time: 2:48:00 PM Study Type:ECHO WITH CARDIAC DOPPLER COMP Height: 63 in Weight: 176 lb BSA: 1.83 m2 Age: 8 1955,68Y Sex: F BP: 123/73 Sonogrphr: Sandra Royal Pat. Stat.:Outpatient Room: OP CPT - 4: [id number] Reason for Study:Abnormal ECG Procedures: 2D, M-mode, Doppler, Color Flow, The study quality is technically adequate. Race: W ++++++++++++++++++++++++++++++++++++ SUMMARY: ++++++++++++++++++++++++++++++++++++ The left ventricular size is normal. The left ventricular systolic function is normal. Estimated left ventricular ejection fraction is 60-65%. Mild concentric left ventricular hypertrophy. Wall motion appears normal in all segments. The mean left atrial pressure is elevated. Wall motion appears normal in all segments. The right ventricular size / function is normal. The left atrial volume is severely increased (>48 ml/M2). Inferior vena cava shows >50% collapse with respiration consistent with normal right atrial pressure. No evidence of aortic valve stenosis. No evidence of aortic valve regurgitation. Aortic valve calcification with normal systolic leaflet excursion. At rest, the peak velocity through the outflow tract measures 1.12m/sec with a mean gradient of 3.0mmHg. With Valsalva, the peak velocity measures 1.79m/sec with a mean gradient of 7.0mmHg.Nosognificant LVOT pbstruction. Mild mitral regurgitation. Severe mitral valve stenosis. Moderate to severely calcified posterior mitral annulus. Moderate calcification of mitral valve leaflets. The mean gradient across the mitral valve is 14-16 at a heart rate of 82-84. Mild tricuspid regurgitation. Unable to reliably quantitate pulmonary systolic pressure. Mild tricuspid regurgitation. ++++++++++++++++++++++++++++++++++++ FINDINGS: ++++++++++++++++++++++++++++++++++++ LV: The left ventricular size is normal. The left ventricular systolic function is normal. Estimated left ventricular ejection fraction is 60-65%. Mild concentric left ventricular hypertrophy. The septal E/e' is elevated at >15. The lateral E/e' is elevated at >11. The mean left atrial pressure is elevated. WM: Wall motion appears normal in all segments. LVOT: At rest, the peak velocity through the outflow tract measures 1.12m/sec with a mean gradient of 3.0mmHg. With Valsalva, the peak velocity measures 1.79m/sec with a mean gradient of 7.0mmHg. RV: The right ventricular size is normal. Right ventricular systolic function is normal. TAPSE = 17.9mm (<16 mm indicates systolic RV dysfunction). IVS: Intraventricular septum is normal. LA: The left atrial volume is severely increased (>48 ml/M2). RA: The right atrial size is normal. IAS: Atrial septum appears intact. CHAIM: No evidence of pericardial effusion. AO: Normal aortic root. PA: Estimated right atrial pressure of 3 mmHg. Unable to reliably quantitate pulmonary systolic pressure. SVn: Inferior vena cava is normal. Inferior vena cava shows >50% collapse with respiration consistent with normal right atrial pressure. AV: The aortic valve is trileaflet. No evidence of aortic valve stenosis. No evidence of aortic valve regurgitation. Aortic valve calcification with normal systolic leaflet excursion. MV: Mild mitral regurgitation. Severe mitral valve stenosis. Moderate to severely calcified posterior mitral annulus. Moderate calcification of mitral valve leaflets. The mean gradient across the mitral valve is 14-16 at a heart rate of 82-84. PV: Pulmonic valve not well visualized. TV: Mild tricuspid regurgitation. No evidence of tricuspid valve stenosis. ++++++++++++++++++++++++++++++++++++ MEASUREMENTS: ++++++++++++++++++++++++++++++++++++ DOPPLER Pulmonary Veins PVnpkVeld 35 cm/s AR-wave velocit 0.34 m/s S1-wave velocit 0.7 m/s PVn A Dur 0.133 second AV Regurg Flow AV TVI 149 cm MV Regurg Flow MV mnPG 82.8 mmHg MV pkPG 96.7 mmHg MV mnVel 455 cm/s MV pkVel 491 cm/s (60-130)+* TV Forward Flow TV E/A 1.08 Aortic Valve Cardiovascular 2.02 cm Aortic Root Efe 3.6 cm LVOT/AoV (WINDOW MAKER) ( 0.59 Left atrial efe 5.67 cm AV Antegrade Flow Peak Velocity ( 1.76 m/s Mean Velocity ( 1.28 m/s Velocity Time I 36.2 cm AV Antegrade Flow Simplified Bernoulli Gradient pressu 12.4 mmHg Gradient pressu 7.2 mmHg AV Continuity Equation by Velocity Time Integral Aortic Valve Ar 1.85 cm2 AoV Area Index 1.01 Left Ventricle Stroke Volume ( 66.9 ml Cardiac Output 5.62 liter per minute LV Antegrade Flow Peak Velocity ( 1.03 m/s Mean Velocity ( 0.75 m/s Velocity Time I 20.9 cm LV Antegrade Flow Simplified Bernoulli Gradient pressu 4.3 mmHg Gradient pressu 2.4 mmHg Mitral Valve Mitral Valve E- 0.43 second Mean Myocardial 3.9 centimeter/second Myocardial Velo 3.7 centimeter/second Ratio of Mitral 53.4 Myocardial Velo 4.1 centimeter/second Ratio of Mitral 56.3 Heart rate 85 Heart beat per minute Ratio of Mitral 50.8 Mitral Valve E 0.97 MV Antegrade Flow Mitral Valve E- 2.08 m/s Velocity Time I 75 cm Mitral Valve A- 2.14 m/s Mean Velocity ( 1.8 m/s Peak Velocity ( 2.65 m/s MV Antegrade Flow Simplified Bernoulli Gradient pressu 28.1 mmHg Gradient pressu 14.1 mmHg PV Antegrade Flow Peak Velocity ( 0.93 m/s Mean Velocity ( 0.62 m/s Velocity Time I 18.2 cm PV Vmax (Diasto 0.85 m/s PV Antegrade Flow Simplified Bernoulli Gradient pressu 3.4 mmHg PV PGmax (Systo 2.9 mmHg Gradient pressu 1.7 mmHg Tricuspid Valve Tricuspid Valve 0.51 m/s Tricuspid Valve 0.47 m/s TV Regurgitant Flow MaximumTricuspi 2.69 m/s MaximumTricuspi 28.9 mmHg 2D Left Ventricle LVIDd 4.68 cm (3.6-5.2) LVEDV BP 42 ml LV EDV 32.9 ml LVESV BP 16.5 ml LV ESV 13.4 ml LV EF 59.3 % LV EDV 50.2 ml Left Ventricula -9.1 % LV ESV 18.6 ml LV EF 62.9 % LV EF BP 60.7 % Left Ventricula -10.7 % Left Ventricula -9.9 % Left Atrium Left Atrium Vol 52.5 ml/m2 LA Biplane Left Atrium Vol 96.1 ml LA Single Plane Left Atrium pk 6.23 cm Left Atrium pk 7.61 cm Left Atrium Vol 63.8 ml Left Atrium Vol 119 ml LV Teichholz Interventricula 1.17 cm Left Ventricle 2.95 cm Left Ventricle 1.01 cm Heart rate 84 Heart beat per minute Right Atrium RA sys Area 11.2 cm2 Right Ventricle Right Ventricul 2.93 cm RVIDd 3.08 cm MMODE Tricuspid Valve Tricuspid annul 1.79 cm <Electronic Signature> 06/03/2024 07:55 PM Pedrito Rai M.D. Procedure Note Pedrito Rai MD - 06/03/2024 Echocardiography Report Pat.Name: XIMENA CARRERA Pat.ID: [id number] .Date: 06/03/2024 Exam Time: 2:48:00 PM Study Type:ECHO WITH CARDIAC DOPPLER COMP Height: 63 in Weight: 176 lb BSA: 1.83 m2 Age: 8 1955,68Y Sex: F BP: 123/73 Sonogrphr: Sandra Royal Pat. Stat.:Outpatient Room: OP CPT - 4: [id number] Reason for Study:Abnormal ECG Procedures: 2D, M-mode, Doppler, Color Flow, The study quality is technically adequate. Race: W ++++++++++++++++++++++++++++++++++++ SUMMARY: ++++++++++++++++++++++++++++++++++++ The left ventricular size is normal. The left ventricular systolic function is normal. Estimated left ventricular ejection fraction is 60-65%. Mild concentric left ventricular hypertrophy. Wall motion appears normal in all segments. The mean left atrial pressure is elevated. Wall motion appears normal in all segments. The right ventricular size / function is normal. The left atrial volume is severely increased (>48 ml/M2). Inferior vena cava shows >50% collapse with respiration consistent with normal right atrial pressure. No evidence of aortic valve stenosis. No evidence of aortic valve regurgitation. Aortic valve calcification with normal systolic leaflet excursion. At rest, the peak velocity through the outflow tract measures 1.12m/sec with a mean gradient of 3.0mmHg. With Valsalva, the peak velocity measures 1.79m/sec with a mean gradient of 7.0mmHg.Nosognificant LVOT pbstruction. Mild mitral regurgitation. Severe mitral valve stenosis. Moderate to severely calcified posterior mitral annulus. Moderate calcification of mitral valve leaflets. The mean gradient across the mitral valve is 14-16 at a heart rate of 82-84. Mild tricuspid regurgitation. Unable to reliably quantitate pulmonary systolic pressure. Mild tricuspid regurgitation. ++++++++++++++++++++++++++++++++++++ FINDINGS: ++++++++++++++++++++++++++++++++++++ LV: The left ventricular size is normal. The left ventricular systolic function is normal. Estimated left ventricular ejection fraction is 60-65%. Mild concentric left ventricular hypertrophy. The septal E/e' is elevated at >15. The lateral E/e' is elevated at >11. The mean left atrial pressure is elevated. WM: Wall motion appears normal in all segments. LVOT: At rest, the peak velocity through the outflow tract measures 1.12m/sec with a mean gradient of 3.0mmHg. With Valsalva, the peak velocity measures 1.79m/sec with a mean gradient of 7.0mmHg. RV: The right ventricular size is normal. Right ventricular systolic function is normal. TAPSE = 17.9mm (<16 mm indicates systolic RV dysfunction). IVS: Intraventricular septum is normal. LA: The left atrial volume is severely increased (>48 ml/M2). RA: The right atrial size is normal. IAS: Atrial septum appears intact. CHAIM: No evidence of pericardial effusion. AO: Normal aortic root. PA: Estimated right atrial pressure of 3 mmHg. Unable to reliably quantitate pulmonary systolic pressure. SVn: Inferior vena cava is normal. Inferior vena cava shows >50% collapse with respiration consistent with normal right atrial pressure. AV: The aortic valve is trileaflet. No evidence of aortic valve stenosis. No evidence of aortic valve regurgitation. Aortic valve calcification with normal systolic leaflet excursion. MV: Mild mitral regurgitation. Severe mitral valve stenosis. Moderate to severely calcified posterior mitral annulus. Moderate calcification of mitral valve leaflets. The mean gradient across the mitral valve is 14-16 at a heart rate of 82-84. PV: Pulmonic valve not well visualized. TV: Mild tricuspid regurgitation. No evidence of tricuspid valve stenosis. ++++++++++++++++++++++++++++++++++++ MEASUREMENTS: ++++++++++++++++++++++++++++++++++++ DOPPLER Pulmonary Veins PVnpkVeld 35 cm/s AR-wave velocit 0.34 m/s S1-wave velocit 0.7 m/s PVn A Dur 0.133 second AV Regurg Flow AV TVI 149 cm MV Regurg Flow MV mnPG 82.8 mmHg MV pkPG 96.7 mmHg MV mnVel 455 cm/s MV pkVel 491 cm/s (60-130)+* TV Forward Flow TV E/A 1.08 Aortic Valve Cardiovascular 2.02 cm Aortic Root Efe 3.6 cm LVOT/AoV (WINDOW MAKER) ( 0.59 Left atrial efe 5.67 cm AV Antegrade Flow Peak Velocity ( 1.76 m/s Mean Velocity ( 1.28 m/s Velocity Time I 36.2 cm AV Antegrade Flow Simplified Bernoulli Gradient pressu 12.4 mmHg Gradient pressu 7.2 mmHg AV Continuity Equation by Velocity Time Integral Aortic Valve Ar 1.85 cm2 AoV Area Index 1.01 Left Ventricle Stroke Volume ( 66.9 ml Cardiac Output 5.62 liter per minute LV Antegrade Flow Peak Velocity ( 1.03 m/s Mean Velocity ( 0.75 m/s Velocity Time I 20.9 cm LV Antegrade Flow Simplified Bernoulli Gradient pressu 4.3 mmHg Gradient pressu 2.4 mmHg Mitral Valve Mitral Valve E- 0.43 second Mean Myocardial 3.9 centimeter/second Myocardial Velo 3.7 centimeter/second Ratio of Mitral 53.4 Myocardial Velo 4.1 centimeter/second Ratio of Mitral 56.3 Heart rate 85 Heart beat per minute Ratio of Mitral 50.8 Mitral Valve E 0.97 MV Antegrade Flow Mitral Valve E- 2.08 m/s Velocity Time I 75 cm Mitral Valve A- 2.14 m/s Mean Velocity ( 1.8 m/s Peak Velocity ( 2.65 m/s MV Antegrade Flow Simplified Bernoulli Gradient pressu 28.1 mmHg Gradient pressu 14.1 mmHg PV Antegrade Flow Peak Velocity ( 0.93 m/s Mean Velocity ( 0.62 m/s Velocity Time I 18.2 cm PV Vmax (Diasto 0.85 m/s PV Antegrade Flow Simplified Bernoulli Gradient pressu 3.4 mmHg PV PGmax (Systo 2.9 mmHg Gradient pressu 1.7 mmHg Tricuspid Valve Tricuspid Valve 0.51 m/s Tricuspid Valve 0.47 m/s TV Regurgitant Flow MaximumTricuspi 2.69 m/s MaximumTricuspi 28.9 mmHg 2D Left Ventricle LVIDd 4.68 cm (3.6-5.2) LVEDV BP 42 ml LV EDV 32.9 ml LVESV BP 16.5 ml LV ESV 13.4 ml LV EF 59.3 % LV EDV 50.2 ml Left Ventricula -9.1 % LV ESV 18.6 ml LV EF 62.9 % LV EF BP 60.7 % Left Ventricula -10.7 % Left Ventricula -9.9 % Left Atrium Left Atrium Vol 52.5 ml/m2 LA Biplane Left Atrium Vol 96.1 ml LA Single Plane Left Atrium pk 6.23 cm Left Atrium pk 7.61 cm Left Atrium Vol 63.8 ml Left Atrium Vol 119 ml LV Teichholz Interventricula 1.17 cm Left Ventricle 2.95 cm Left Ventricle 1.01 cm Heart rate 84 Heart beat per minute Right Atrium RA sys Area 11.2 cm2 Right Ventricle Right Ventricul 2.93 cm RVIDd 3.08 cm MMODE Tricuspid Valve Tricuspid annul 1.79 cm <Electronic Signature> 06/03/2024 07:55 PM Pedrito Rai M.D. ePdrito Rai MD ECHO Final Result * HEMOGLOBIN, GLYCOSYLATED (05/19/2024) HGB A1C 7.6 % [facility] 05/19/2024 Dandy Duarte DO LABORATORY Final Re sult [facility] [address] [place] [address], [place] * NM EXER NUC STRESS TEST 1DAY (05/05/2024 2:04 PM MOLD BREAKER) Anatomical Region Laterality Modality Cardiac Nuclear Medicine 05/05/2024 12:4 3 PM MOLD BREAKER Narrative 05/06/2024 8:17 AM MOLD BREAKER Myocardial Perfusion Imaging Pat.Name: CARRERAXIMENA SNADERS Milagro Pat.ID: [id number] .Date: 05/05/2024 Refer.MD: Felicia Exam Time: 12:43:00 PM Study Type:GABY NC HT MUSCLE IMAGE SPECT MULTI Height: 63 in Weight: 175 lb BSA: 1.83 m2 Age: 8 1955,68Y Sex: F Sonogrphr: JAQUAN Nava Pat. Stat.:Outpatient Reason for Study:Evaluation of known CAD, Abnormal EKG History / Clinical:Smoker, Diabetes, Hypertension, Family history CAD, Dyslipidemia, Renal Insufficiency Procedures: Nuclear Stress Test with Exercise Surgery: None ++++++++++++++++++++++++++++++++++++ SUMMARY: ++++++++++++++++++++++++++++++++++++ Stress conclusion: 1. Clinically negative. 2. Electrocardiographically negative treadmill test for ischemia. 3. Fair exercise capacity. 4. Garcia Treadmill Score is 4.5, which indicates low risk. 5. Blood pressure response was hypertensive. 6. Scintigraphic images to follow. Perfusion conclusion: 1. Good study quality. No motion correction was applied to images. Diaphragm attenuation is noted. Prone imaging was performed. 2. Mildly abnormal myocardial perfusion SPECT imaging. SPECT images demonstrate a small reversible perfusion abnormality present in the apical inferolateral region(s) of mild intensity. This could represent diaphragmatic attenuation. 3. Normal wall motion with an ejection fraction of 61%. 4. Stress test with myocardial perfusion imaging shows overall intermediate risk for a cardiac event. ++++++++++++++++++++++++++++++++++++ FINDINGS: ++++++++++++++++++++++++++++++++++++ Protocol: The images were processed using the standard SPECT technique. A gated study was performed on the stress images. Impression: SPECT images demonstrate a small reversible perfusion abnormality present in the apical inferolateral region(s) of mild intensity. Heart Size: The left ventricle is normal. LV Wall Motion: The LVEF is calculated to be 61%. Gated SPECT images reveal normal wall motion. Transient Ischemic Dilatation: The TID is 0.74. ++++++++++++++++++++++++++++++++++++ STRESS: ++++++++++++++++++++++++++++++++++++ Baseline Vital Signs: ECG: Sinus rhythm HR: 88 bmp Rest BP: 136/62 Treadmill Test Protocol: Reji Duration: 05:00 min:sec Max. Workload (METS): 6.2 Stress Test Results: Max HR: 156 bmp Target HR: 151 bmp % Target: 103 % Max BP: 188/80 Max RPP: [id number] O2 sat: 100 % Symptoms and Complications: Terminated: Shortness of breath, Leg fatigue Symptoms: Shortness of breath, Leg fatigue Complications: None Stress ECG Interp: Sinus tachycardia <Electronic Signature> 05/06/2024 08:17 AM Yasmin Gross M.D. Procedure Note Yasmin Gross MD - 05/06/2024 Myocardial Perfusion Imaging Pat.Name: XIMENA CARRERA Pat.ID: [id number] .Date: 05/05/2024 Refer.: Felicia Exam Time: 12:43:00 PM Study Type:GABY NC HT MUSCLE IMAGE SPECT MULTI Height: 63 in Weight: 175 lb BSA: 1.83 m2 Age: 8 1955,68Y Sex: F Sonogrphr: NATY NavaMT Pat. Stat.:Outpatient Reason for Study:Evaluation of known CAD, Abnormal EKG History / Clinical:Smoker, Diabetes, Hypertension, Family history CAD, Dyslipidemia, Renal Insufficiency Procedures: Nuclear Stress Test with Exercise Surgery: None ++++++++++++++++++++++++++++++++++++ SUMMARY: ++++++++++++++++++++++++++++++++++++ Stress conclusion: 1. Clinically negative. 2. Electrocardiographically negative treadmill test for ischemia. 3. Fair exercise capacity. 4. Garcia Treadmill Score is 4.5, which indicates low risk. 5. Blood pressure response was hypertensive. 6. Scintigraphic images to follow. Perfusion conclusion: 1. Good study quality. No motion correction was applied to images. Diaphragm attenuation is noted. Prone imaging was performed. 2. Mildly abnormal myocardial perfusion SPECT imaging. SPECT images demonstrate a small reversible perfusion abnormality present in the apical inferolateral region(s) of mild intensity. This could represent diaphragmatic attenuation. 3. Normal wall motion with an ejection fraction of 61%. 4. Stress test with myocardial perfusion imaging shows overall intermediate risk for a cardiac event. ++++++++++++++++++++++++++++++++++++ FINDINGS: ++++++++++++++++++++++++++++++++++++ Protocol: The images were processed using the standard SPECT technique. A gated study was performed on the stress images. Impression: SPECT images demonstrate a small reversible perfusion abnormality present in the apical inferolateral region(s) of mild intensity. Heart Size: The left ventricle is normal. LV Wall Motion: The LVEF is calculated to be 61%. Gated SPECT images reveal normal wall motion. Transient Ischemic Dilatation: The TID is 0.74. ++++++++++++++++++++++++++++++++++++ STRESS: ++++++++++++++++++++++++++++++++++++ Baseline Vital Signs: ECG: Sinus rhythm HR: 88 bmp Rest BP: 136/62 Treadmill Test Protocol: Reji Duration: 05:00 min:sec Max. Workload (METS): 6.2 Stress Test Results: Max HR: 156 bmp Target HR: 151 bmp % Target: 103 % Max BP: 188/80 Max RPP: 96707 O2 sat: 100 % Symptoms and Complications: Terminated: Shortness of breath, Leg fatigue Symptoms: Shortness of breath, Leg fatigue Complications: None Stress ECG Interp: Sinus tachycardia <Electronic Signature> 05/06/2024 08:17 AM Yasmin Gross M.D. Pedrito Rai MD [facility] Final Result * (ABNORMAL) LIPID PANEL (02/25/2024 8:49 AM MOLD BREAKER) [facility] CHOLESTEROL 202(H) <200 MG/DL 02/25/2024 4:38 PM [facility] TRIGLYCERIDES 172(H) <150 MG/DL 02/25/2024 4:38 PM [facility] HDL 53 >40 MG/DL 02/25/2024 4:38 PM [facility] LDL-C 115(H) <100 MG/DL 02/25/2024 4:38 PM [facility] VLDL CALCULATION 34(H) 5 - 28 MG/DL 02/25/2024 4:38 PM [facility] CHOL/HDL RATIO 3.8 0.0 - 4.0 02/25/2024 4:38 PM [facility] LDL/HDL 2.2(H) 0.41 - 2.13 02/25/2024 4:38 PM [facility] [place] NON HDL CHOLESTEROL 149(H) <140 MG/DL 02/25/2024 4:38 PM MOLD BREAKER [facility] [place] 02/25/2024 8:49 AM MOLD BREAKER Dandy Duarte DO LABORATORY Final Re sult Performing Organization Address [facility] de Phone Number [facility] [place] [address] [place] [place] [address], * MAMMOGRAM GENERIC (SCAN ORDER) (11/06/2023) Anatomical Region Laterality Modality Other 11/06/2023 [facility] Scanned SCANNING Final Resu lt * BONE DENSITY GENERIC (06/24/2022) Anatomical Region Laterality Modality Other 06/24/2022 [facility] Scanned SCANNING Final Resu lt * DIABETIC RETINOPATHY EXAM (NEGATIVE)(SCAN) (01/15/2022) Result [facility] Scanned SCANNING Final Resu lt Performing Organization Address [facility] de Phone Number [facility] * COLOGUARD (EXACT SCIENCE) (01/08/2022 3:45 AM CDT) COLOGUARD RESULT Negative Negative [employer] (CLIA #:[id number]) Comment: NEGATIVE TEST RESULT. A negative Cologuard result indicates a low likelihood that a colorectal cancer (CRC) or advanced adenoma (adenomatous polyps with more advanced pre-malignant features) is present. The chance that a person with a negative Cologuard test has a colorectal cancer is less than 1 in 1500 (negative predictive value >99.9%) or has an advanced adenoma is less than 5.3% (negative predictive value 94.7%). These data are based on a prospective cross-sectional study of 10,000 individuals at average risk for colorectal cancer who were screened with both Cologuard and colonoscopy. (Kimmie Walker, N Engl J Med 2014;370(14):8231-7771) The normal value (reference range) for this assay is negative. COLOGUARD RE-SCREENING RECOMMENDATION: Periodic colorectal cancer screening is an important part of preventive healthcare for asymptomatic individuals at average risk for colorectal cancer. Following a negative Cologuard result, the [place] [employer] and U.S. Multi-Society Task Force screening guidelines recommend a Cologuard re-screening interval of 3 years. References: [place] [employer] Guideline for Colorectal Cancer Screening: https://www.cancer.org/cancer/xndyz-qkturo-odvvlv/nydfbhnql-ylqiptvjp-bszhpqk/ac s-rec ommendations.html.; Toñito DK, Talha CONNOLLY, Justine McconnellK, Colorectal Cancer Screening: Recommendations for Physicians and Patients from the U.S. Multi-Society Task Force on Colorectal Cancer Screening , Am J Gastroenterology 2017; 112:5426-4256. TEST DESCRIPTION: Composite algorithmic analysis of stool DNA-biomarkers with hemoglobin immunoassay. Quantitative values of individual biomarkers are not reportable and are not associated with individual biomarker result reference ranges. Cologuard is intended for colorectal cancer screening of adults of either sex, 45 years or older, who are at average-risk for colorectal cancer (CRC). Cologuard has been approved for use by the U.S. FDA. The performance of Cologuard was established in a cross sectional study of average-risk adults aged 50-84. Cologuard performance in patients ages 45 to 49 years was estimated by sub-group analysis of near-age groups. Colonoscopies performed for a positive result may find as the most clinically significant lesion: colorectal cancer [4.0%], advanced adenoma (including sessile serrated polyps greater than or equal to 1cm diameter) [20%] or non- advanced adenoma [31%]; or no colorectal neoplasia [45%]. These estimates are derived from a prospective cross-sectional screening study of 10,000 individuals at average risk for colorectal cancer who were screened with both Cologuard and colonoscopy. (Imperiale T. et al, N Engl J Med 2014;370(14):5645-3301.) Cologuard may produce a false negative or false positive result (no colorectal cancer or precancerous polyp present at colonoscopy follow up). A negative Cologuard test result does not guarantee the absence of CRC or advanced adenoma (pre-cancer). The current Cologuard screening interval is every 3 years. ([place] [employer] and U.S. Multi-Society Task Force). Cologuard performance data in a 10,000 patient pivotal study using colonoscopy as the reference method can be accessed at the following location: www.[employer]/results. Additional description of the Cologuard test process, warnings and precautions can be found at www.cologuard.com. STOOL STOOL SPECIMEN / Unknown 01/08/2022 3:45 AM CDT 01/09/2022 3:35 PM CDT Dandy Duarte DO BODY FLUIDS AND STOOLS O RDERABLES Final Result Performing Organization Address City/State/[place] de Phone Number [facility] [facility]) [address] [place] [address], [employer] (CLIA #:[id number]) [address] [place] [address] from Last 3 Months or Most Recently Relevant to Health Maintenance Insurance [employer] Advance Directives * Full Code (Latest Code Status on File) Date Activated Date Inactivated Comments 07/01/2024 10:25 AM 07/01/2024 4:38 PM Care Teams Dry Food Products Mixer Relationship Specialty Start Date End Date Dandy Duarte DO [address] [place] [id number] PCP - General FAMILY PRACTICE 06/06/22
--- OUTSIDE RECORDS SUMMARY | 2024-07-27 07:30 | XMS_ITS | Encounter Summary ---
Author Organization [facility] Address [facility] [place] [address] Care Team Providers Care Budget Clerk Name Role Phone Dandy Duarte DO Primary Care Provider + Encounter Details Date Type Department Care Team (Late Contact Info) Description 02/12/2024 MyChart Message Enc [facility] Family & Internal Medicine [address] [phone] Dandy Duarte DO [address] [place] [phone] Lab work Social History Tobacco Use Types Packs/Day Years Used Date Smoking Tobacco: Some Days Cigarettes 1 25 Passive Smoke Exposure: Current Smokeless Tobacco: Never Comments:Provider to children's counselor Alcohol Use Standard Drinks/Week Comments Not Currently 0 (1 standard drink = 0.6 oz pur e alcohol) PHQ-2 Answer Date Recorded Patient Health Questionnaire-2 Score 0 11/13/2023 Comments No Sex and Gender Information Value Date Recorded Sex Assigned at Female 05/05/2024 12:32 PM PLASTICS WORKER Legal Sex Female 10:17 AM PLASTICS WORKER Gender Identity Female 12/25/2021 9:32 AM CDT Sexual Orientation Not on file documented as of this encounter Plan of Treatment Upcoming Encounters Date Type Department Care Team (Late Contact Info) Description 08/17/2024 8:20 AM CDT Office Visit [facility] Family & Internal Medicine - [address] [phone] Dandy Duarte DO [address] [place] [phone] 09/03/2024 9:30 AM CDT Office Visit [facility] [phone] Pedrito Rai MD [address] [place] [address] [place] [phone] documented as of this encounter Visit Diagnoses Not on filedocumented in this encounter Additional Health Concerns Assessment Noted Time PHQ-9 Depression Total Score: 0 05/02/19 21 10:38 AM PLASTICS WORKER documented as of this encounter Care Teams Budget Clerk Relationship Specialty Start Date End Date Dandy Duarte DO [address] [place] [phone] PCP - General FAMILY PRACTICE 06/06/22 documented as of this encounter
--- OUTSIDE RECORDS SUMMARY | 2024-07-27 07:30 | XMS_ITS | Encounter Summary ---
Author Organization [facility] Address [address] [facility] [address] [place] [address] Phone Care Team Providers Care Photo Lab Technician Name Role Phone Dandy Duarte Primary Care Provide r Fredi Giordano MD, Pedrito Stroud Unavailable [phone] Reason for Visit * Consultation (Routine) - Authorized Specialty Diagnoses / Procedures Referred By Contac t Referred To Contact Cardiothoracic Surgery Diagnoses Severe mitral valve stenosis Pedrito Rai Jr., MD [address] [place] [id number] Phone: tel: fax: Raad Zimmer MD [address] [facility] [id number] [place] [address] Phone: tel: fax: Referral ID Status Reason Start Date Expiration Date Visits Requested Visits Authorized [id number] Authorized Specialty Services Required 07/07/2024 08/06/2025 99 99 Encounter Details Date Type Department Care Team (Latest Contact Info) Description 07/26/2024 10:00 AM CDT Office Visit [facility] Cardiothoracic Surgery [address] [facility] 8th [address] Room [address] [place], [place] [id number] KanRaad henderson MD [address] [id number] [place] [address] Severe mitral valve stenosis Social History Tobacco Use Types Packs/Day Years Used Date Smoking Tobacco: Former Cigarettes Tobacco Cessation:Counseling Given: Not Answered Comments:Quit smoking 4 months ago Comments Unknown Sex and Gender Information Value Date Recorded Sex Assigned at Not on file Legal Sex Female 3:40 PM CDT Gender Identity Not on file Sexual Orientation Not on file documented as of this encounter Last Filed Vital Signs Vital Sign Reading Time Taken Comments Blood Pressure 126/85 07/26/2024 9:44 AM CDT Pulse 71 07/26/2024 9:44 AM CDT Temperature - - Respiratory Rate - - Oxygen Saturation 99% 07/26/2024 9:44 AM CDT Inhaled Oxygen Concentration - - Weight 83.5 kg (184 lb) 07/26/2024 9:44 AM CDT Height 160 cm (5' 3 ) 07/26/2024 9:44 AM CDT Body Mass Index 32.59 07/26/2024 9:44 AM CDT documented in this encounter Progress Notes * Pat Tomas NP - 07/26/2024 10:00 AM CDT [facility] Cardiothoracic Surgery New Patient Consult DATE OF CONSULTATION: 07/26/2024 REFERRING PROVIDER: Pedrito Rai Jr., MD REASON FOR CONSULTATION: CAD, severe mitral stenosis CHIEF COMPLAINT: Shortness of breath HISTORY OF PRESENTING ILLNESS: Ximena Stallings is a 68 y.o. year old female with a past medical history of HTN, HLD, DM2, Hepatitis C, CKD (last creatinine 1.49), and former smoker. Her daughter states that she snores very heavily and has never been tested for sleep apnea, though has frequent apneic episodes while sleeping. Ms. Stallings reports that she has been completing annual lung CT is due to her history of smoking. Most recent CT showed coronary calcifications which led to further cardiac workup. Left heart cath demonstrated CAD (80% stenosis at mid RCA, 70% stenosis at mid left circumflex). Echocardiogram showed severe mitral stenosis with calcified mitral leaflets and normal LV function. At today's clinic, she endorses shortness of breath with minimal exertion and dizziness over the last several months. She reports that last week she required 2 pillows to sleep due to increased shortness of breath. She also to use her inhaler and endorsed frequent coughing. She denies chest pain, syncope, and lower extremity edema. NYHA Class III symptoms. Ms. Stallings is retired and lives with her ex- and granddaughter. She denies drug or alcohol use. She reports having quit smoking approximately 4 months ago. Prior to that, she was smoking in 1 PPD x 40 years. REVIEW OF SYSTEMS: All other 12 systems reviewed and were negative unless stated in the HPI. PAST MEDICAL HISTORY: Past Medical History: Diagnosis Date CAD (coronary artery disease) CKD (chronic kidney disease) stage 3, GFR 30-59 ml/min (HCC) DM (diabetes mellitus), type 2 (HCC) Hepatitis C HLD (hyperlipidemia) HTN (hypertension) Mitral stenosis PAST SURGICAL HISTORY: History reviewed. No pertinent surgical history. ALLERGIES: Allergies Allergen Reactions Poison Viv Extract Blisters, Rash and Hives Simvastatin Other (See comments) Cramps. Latex Itching HOME MEDICATIONS: Current Outpatient Medications: albuterol HFA (PROVENTIL HFA,VENTOLIN HFA,PROAIR HFA) 90 mcg/actuation inhaler, 2 puffs every 6 (six) hours as needed for wheezing, Disp: , Rfl: aspirin 81 mg enteric coated tablet, Take 1 tablet (81 mg total) by mouth daily, Disp: , Rfl: atorvastatin (LIPITOR) 80 mg tablet, Take 1 tablet (80 mg total) by mouth daily, Disp: , Rfl: calcium carbonate-vit D3-min 600 mg-10 mcg (400 unit) tablet, Take by mouth, Disp: , Rfl: ezetimibe (ZETIA) 10 mg tablet, Take 1 tablet (10 mg total) by mouth daily, Disp: , Rfl: fluticasone propionate (FLONASE) 50 mcg/actuation nasal spray, Administer 1 spray into each nostrildaily, Disp: , Rfl: glipiZIDE XL (GLUCOTROL XL) 10 mg 24 hr tablet, Take 1 tablet (10 mg total) by mouth daily, Disp: ,Rfl: hydroCHLOROthiazide (HYDRODIURIL) 25 mg tablet, Take 1 tablet (25 mg total) by mouth daily, Disp: ,Rfl: ibuprofen-famotidine 800-26.6 mg tablet, Take by mouth as needed, Disp: , Rfl: lisinopriL (PRINIVIL,ZESTRIL) 40 mg tablet, Take 1 tablet (40 mg total) by mouth daily, Disp: , Rfl: metFORMIN (FORTAMET) 500 mg 24 hr tablet, Take 1 tablet (500 mg total) by mouth daily with breakfast, Disp: , Rfl: metoprolol XL (TOPROL-XL) 25 mg extended release tablet, Take 1 tablet (25 mg total) by mouth daily, Disp: , Rfl: multivit,Ca,hyia-XH-mkhvcb-lut [id number] rn-luj-lek-mcg tablet, Take by mouth, Disp: , Rfl: nitroglycerin (NITROSTAT) 0.4 mg SL tablet, Place 1 tablet (0.4 mg total) under the tongue as needed for chest pain, Disp: , Rfl: OneTouch Ultra Test strip, USE TO TEST BLOOD SUGAR ONCE DAILY BEFORE BREAKFAST, Disp: , Rfl: OneTouch Ultra2 Meter [facility], USE TO TEST BLOOD SUGAR EVERY MORNING, Disp: , Rfl: varenicline tartrate (CHANTIX) 1 mg tablet, Take 1 tablet (1 mg total) by mouth 2 (two) times a day, Disp: , Rfl: FAMILY HISTORY: Family History Problem Relation Age of Onset No Known Problems Mother Heart disease Father Heart disease Sister Heart disease Brother SOCIAL HISTORY:. Social History Tobacco Use Smoking status: Former Types: Cigarettes Smokeless tobacco: None Tobacco comments: Quit smoking 4 months ago Substance and Sexual Activity Drug use: None Sexual activity: None Alcohol Use: Not on file PHYSICAL EXAMINATION: Vital Signs: Vitals BP 126/85 Pulse 71 Ht 160 cm (5' 3 ) Wt 83.5 kg (184 lb) SpO2 99% BMI 32.59 kg/m?? Assessment: General: No acute distress, frail appearing, in a wheelchair HEENT: Normocephalic, extraocular muscles intact, anicteric sclera, no oral lesions Neck: No JVD Respiratory: Diminished to auscultation bilaterally Cardiovascular: Irregular rate and rhythm, 3/6 systolic murmur at right sternal border Abdomen: Soft, non-tender, non-distended, +bowel sounds Neurologic: alert, oriented x 3, symmetric movement of bilateral upper and lower extremities Skin: no lesions on exposed areas Extremities: 1+ edema bilateral lower extremities Psychiatric: normal mood and affect DIAGNOSTIC DATA: I have personally reviewed the following: Transesophageal Echocardiogram 07/01/2024: Normal biventricular size and function. The left atrial size is severely enlarged. The left atrial appendage shows no evidence of thrombus. Moderately calcified mitral valve leaflets with restricted mobility. Mild mitral regurgitation. Severe mitral valve stenosis. The mean gradient across the mitral valve is 11 at a heart rate of 69. The mitral valve area by pressure half-time is 1.48 cm2. Mild tricuspid regurgitation. Right ventricular systolic pressure is 42 mmHg (+CVP). Cardiac Catheterization 07/01/24: The coronary circulation is right dominant. The left main bifurcates normally, giving rise to the LAD in the left circumflex. The left anterior descending gives rise to 3 diagonals and for septals. The left circumflex gives rise to 3 obtuse marginals and no posterior laterals. The right coronary artery gives rise to the posterior descending artery, 2 RV marginals and 2 posterior laterals. Left main: The left main is normal. Lad: Midvessel stenosis. There is a 30% stenosis. Left circumflex: Midvessel stenosis. There was a 70% stenosis. Right coronary: Midvessel stenosis. There is an 80% stenosis. Transthoracic Echocardiogram 06/03/2024: The left ventricular size is normal. Left ventricular systolic function is normal. Estimated left ventricular ejection fraction is 60-65%. Mild concentric left ventricular hypertrophy. Wall motion appears normal in all segments. The mean left atrial pressure is elevated. Right ventricular size/function is normal. Left atrial volume is severely increased (> 48 mL/m2). Inferior vena cava shows> 50% collapse with respiration consistent with normal right atrial pressure. No evidence of aortic valve stenosis. No evidence of aortic valve regurgitation. Aortic valve calcification with normal systolic leaflet excursion. At rest, the peak velocity through the outflow tract measures 1.12m/sec with a mean gradient of 3 mmHg. With Valsalva, the peak velocity measures 1.79m/sec with a mean gradient of 7 mmHg. No significant LVOT obstruction. Mild mitral regurgitation. Severe mitral valve stenosis. Moderate to severely calcified posterior mitral annulus. Moderate calcification of mitral valve leaflets. The mean gradient across the mitral valve is 14-16 at a heart rate of 82-84. Mild tricuspid regurgitation. Unable to reliably quantitate pulmonary systolic pressure. Mild tricuspid regurgitation. CT Chest without contrast 02/06/2024: There is no evidence of any significant mediastinal, hilar or axillary lymphadenopathy. Extensive coronary artery calcifications are present. There is no evidence of pleural or pericardial effusion. The lungs are clear. No pulmonary nodules or infiltrates are noted. Images through the upper abdomen revealed no abnormalities. ASSESSMENT AND PLAN: Ximena Stallings presents to the Cardiothoracic Surgery Clinic today for evaluation of coronary artery disease and is mitral stenosis. She is currently displaying NYHA Class III symptoms. Review of the imaging shows multivessel coronary artery disease (80% RCA, 70% mid LCX), and severe mitral stenosis with calcified mitral leaflets. Dr. Zimmer discussed that she currently has indication for surgical c oronary revascularization with coronary artery bypass grafting as well as a mitral valve replacement. He discussed benefits and risks which include but are not limited to bleeding, infection, renal failure, respiratory failure, stroke, and . She will require no further testing prior to proceeding with surgery. This was all discussed at length with the patient and her daughter and they are agreeable to proceeding with this plan. Our office will reach out to her to schedule the surgical date and further pre- operative testing. PLAN: SURGERY: CABG + MVR Thank you for allowing us to participate in the care of this very pleasant patient. Please feel free to contact our office at [phone] with any questions or concerns regarding her care. Sincerely, aPt Tomas, MSN, [facility]- Nurse Practitioner Division of Cardiothoracic Surgery [facility] [employer] completed using M*Modal Fluency Direct speaking software, therefore, health clinician variances may occur. Cosigned by Raad Zimmer MD at 07/26/2024 11:27 AM CDT Associated attestation - Raad Zimmer MD - 07/26/2024 11:27 AM CDT I have seen and examined the patient. I agree with the findings and plan of care. 68-year-old female who is referred for severe mitral stenosis and coronary artery disease. She was extremely functional but over the past 6 months, she has felt worse. We will schedule for MVR with bioprosthesis, CABGx2 with radial vein. I quoted operative mortality of 1-2% risk of mortality. documented in this encounter Plan of Treatment Not on file documented as of this encounter Visit Diagnoses Diagnosis Severe mitral valve stenosis Mitral stenosis documented in this encounter Historical Medications * This list may reflect changes made after this encounter. varenicline tartrate (CHANTIX) 1 mg tablet Take 1 tablet (1 mg total) by mouth 2 (two) times a day 11/13/2023 EchometrixTouch Ultra2 Meter misc USE TO TEST BLOOD SUGAR EVERY MORNING 07/19/2024 EchometrixTouch Ultra Test strip USE TO TEST BLOOD SUGAR ONCE DAILY BEFORE BREAKFAST 07/19/2024 albuterol HFA (PROVENTIL HFA,VENTOLIN HFA,PROAIR HFA) 90 mcg/actuation inhaler 2 puffs every 6 (six) hours as needed for wheezing nitroglycerin (NITROSTAT) 0.[address] 1 tablet (0.4 mg total) under the tongue as needed for chest pain multivit,Ca,iron -LU-yhxrte-gjc [id number] yf-uzu-hif-mcg tablet Take by mouth metFORMIN (FORTAMET) 500 mg 24 hr tablet Take 1 tablet (500 mg total) by mouth daily with breakfast metoprolol XL (TOPROL-XL) 25 mg extended release tablet Take 1 tablet (25 mg total) by mouth daily lisinopriL (PRINIVIL,ZESTRI L) 40 mg tablet Take 1 tablet (40 mg total) by mouth daily ibuprofen-famoti dine 800-26.6 mg tablet Take by mouth as needed hydroCHLOROthiaz ronen (HYDRODIURIL) 25 mg tablet Take 1 tablet (25 mg total) by mouth daily glipiZIDE XL (GLUCOTROL XL) 10 mg 24 hr tabletIndication s:type 2 diabetes mellitus Take 1 tablet (10 mg total) by mouth daily fluticasone propionate (FLONASE) 50 mcg/actuation nasal spray Administer 1 spray into each nostril daily ezetimibe (ZETIA) 10 mg tablet Take 1 tablet (10 mg total) by mouth daily calcium carbonate-vit D3-min 600 mg-10 mcg (400 unit) tablet Take by mouth atorvastatin (LIPITOR) 80 mg tablet Take 1 tablet (80 mg total) by mouth daily aspirin 81 mg enteric coated tablet Take 1 tablet (81 mg total) by mouth daily added in this encounter Orders Outpatient Referral Count Last Ordered Date Fir st Ordered Date AMB REFERRAL TO CARDIOTHORACIC SURGERY 1 documented in this encounter Care Teams Photo Lab Technician Relationship Specialty Start Date End Date Dandy Duarte DO [address] [place] [address] PCP - General Family Medicine 07/02/24 Pedrito Rai Jr., MD [address] [facility] [address] [place] [phone] Referring Physician Cardiology 07/07/24 documented as of this encounter
--- OUTSIDE RECORDS SUMMARY | 2024-07-27 07:30 | XMS_ITS | Encounter Summary ---
Author Organization [facility] Address [address] [place] [address] Phone Care Team Providers Care Water Jet Loom Fixer Name Role Phone Dandy Duarte DO Primary Care Provide r Fredi Giordano MD, Pedrito Stroud Unavailable [phone] Encounter Details Date Type Department Care Team (Late st Contact Info) Description 07/20/2024 Telephone [facility] Cardiology [address] [facility] [place] 8th [place] [address] [place] [address] Yahir Carlin MD PhD [address] [place] [address] Social History Tobacco Use Types Packs/Day Years Used Date Smoking Tobacco: Never Assessed Comments Unknown Sex and Gender Information Value Date Recorded Sex Assigned at Not on file Legal Sex Female 3:40 PM CDT Gender Identity Not on file Sexual Orientation Not on file documented as of this encounter Miscellaneous Notes * Telephone Encounter - Luke Langston - 07/20/2024 8:57 AM CDT REQ CALL BACK REGARDING STATUS OF PT BEING SCHEDULED AND MAKING SURE ALL RECORDS WAS RECEIVED. PLS CALL documented in this encounter Plan of Treatment Not on file documented as of this encounter Visit Diagnoses Not on filedocumented in this encounter Care Teams Water Jet Loom Fixer Relationship Specialty Start Date End Date Dandy Duarte DO [address] [place] [address] PCP - General Family Medicine 07/02/24 Pedrito Rai Jr., MD 3 [facility] [address] [place] [phone] Referring Physician Cardiology 07/07/24 documented as of this encounter
--- OUTSIDE RECORDS SUMMARY | 2024-07-27 07:30 | XMS_ITS | Clinical Summary ---
Author Organization [facility] Address [address] [place] [address] Care Team Providers Care Rubber Goods Tester Name Role Phone Dandy Duarte DO Primary Care Provide r Fredi Giordano MD, Pedrito Toussaint. Unavailable [phone] Allergies Active Allergy Reactions Criticality Noted Date Comments Latex Itching Low 09/25/2023 Poison Viv Extract Blisters,Rash,Hives High 09/25/19 24 Simvastatin Other (See comments) 10/09/2022 Cramps. Medications aspirin 81 mg enteric coated tablet Take 1 tablet (81 mg total) by mouth daily Active atorvastatin (LIPITOR) 80 mg tablet Take 1 tablet (80 mg total) by mouth daily Active calcium carbonate-vit D3-min 600 mg-10 mcg (400 unit) tablet Take by mouth Act gray ezetimibe (ZETIA) 10 mg tablet Take 1 tablet (10 mg total) by mouth daily Active fluticasone propionate (FLONASE) 50 mcg/actuation nasal spray Administer 1 spray into each nostril daily Active glipiZIDE XL (GLUCOTROL XL) 10 mg 24 hr tabletIndicatio ns:type 2 diabetes mellitus Take 1 tablet (10 mg total) by mouth daily Active hydroCHLOROthia zide (HYDRODIURIL) 25 mg tablet Take 1 tablet (25 mg total) by mouth daily Active ibuprofen-famot idine 800-26.6 mg tablet Take by mouth as needed Active lisinopriL (PRINIVIL,ZESTR IL) 40 mg tablet Take 1 tablet (40 mg total) by mouth daily Active metoprolol XL (TOPROL-XL) 25 mg extended release tablet Take 1 tablet (25 mg total) by mouth daily Active metFORMIN (FORTAMET) 500 mg 24 hr tablet Take 1 tablet (500 mg total) by mouth daily with breakfast Active multivit,Ca,iro a-LZ-lgcliw-lut [id number] lr-ipg-pts-mcg tablet Take by mouth Active nitroglycerin (NITROSTAT) 0.[address] 1 tablet (0.4 mg total) under the tongue as needed for chest pain Active albuterol HFA (PROVENTIL HFA,VENTOLIN HFA,PROAIR HFA) 90 mcg/actuation inhaler 2 puffs every 6 (six) hours as needed for wheezing Active OneTouch Ultra Test strip USE TO TEST BLOOD SUGAR ONCE DAILY BEFORE BREAKFAST 5 Active OneTouch Ultra2 Meter misc USE TO TEST BLOOD SUGAR EVERY MORNING 5 Active varenicline tartrate (CHANTIX) 1 mg tablet Take 1 tablet (1 mg total) by mouth 2 (two) times a day 4 Active Active Problems Problem Noted Date Diagnosed Date Severe mitral valve stenosis 07/07/2024 2-vessel coronary artery disease 07/07/2024 Dyspnea on exertion 06/11/2024 Stage 3a chronic kidney disease (CKD) 06/06/2022 Hyperlipidemia 09/26/2016 Diabetes mellitus 08/12/2016 Hypertension associated with type 2 diabetes wesley litus 06/26/2016 Encounters Date Type Department Care Team Description 07/26/2024 10:00 AM CDT Office Visit [facility] Cardiothoracic Surgery [address] [facility] [address] Room [address] [phone] Raad Zimmer MD Severe mitral valve stenosis 07/20/2024 Telephone [facility] Cardiology [address] [facility] [address] [place] [address] [place] [phone] Yahir Carlin MD PhD 07/08/2024 11:25 AM CDT - 07/08/2024 11:59 PM CDT Hospital Encounter [facility] ([facility]) [address] [place] [address] Discharge Disposition: Discharge to home or self care 07/08/2024 10:23 AM CDT - 07/08/2024 11:59 PM CDT Hospital Encounter [facility] ([facility]) [address] [place] [phone] Discharge Disposition: Discharge to home or self care 07/05/2024 [facility] Cardiology [address] [place] [address] for Advanced Medicine 8th [place] [address] [place] [address] Yahir Carlin MD PhD Patient referral 07/03/2024 1:22 AM CDT - 07/03/2024 11:59 PM CDT Hospital Encounter [facility] ([facility]) [address] [place] [id number] Discharge Disposition: Discharge to home or self care 07/03/2024 1:19 AM CDT - 07/03/2024 11:59 PM CDT Hospital Encounter [facility] ([facility]) [address] [place] [phone] Discharge Disposition: Discharge to home or self care 07/02/2024 Orders Only [facility] Scanning, Provider from Last 3 Months Medical History Medical History Date Comments HTN (hypertension) HLD (hyperlipidemia) Hepatitis C DM (diabetes mellitus), type 2 (HCC) CKD (chronic kidney disease) stage 3, GFR 30-59 ml/min ([facility]) CAD (coronary artery disease) Mitral stenosis Family History Medical History Relation Name Comments Heart disease Brother Heart disease Father No Known Problems Mother Heart disease Sister Relation Name Status Comments Brother Father Mother Sister Alive Social History Tobacco Use Types Packs/Day Years Used Date Smoking Tobacco: Former Cigarettes Tobacco Cessation:Counseling Given: Not Answered Comments:Quit smoking 4 months ago Comments Unknown Sex and Gender Information Value Date Recorded Sex Assigned at Not on file Legal Sex Female 3:40 PM CDT Gender Identity Not on file Sexual Orientation Not on file Obstetrics History Last Filed Vital Signs Vital Sign Reading [...] Mass Index 32.59 07/26/2024 9:44 AM CDT Plan of Treatment Health Maintenance Due Date Last Done Comments Albumin Creatinine Ratio, Urine 1954 Breast Cancer Screening-Mammogram 1954 Colon Cancer Screening-Colonoscopy 1954 Depression Screening 1954 Fall Risk Assessment 1954 Hemoglobin A1C 1954 Hepatitis C Screening 1954 Osteoporosis Screening-Bone Density Scan 1954 eGFR 1954 Dilated Eye Exam 1954 Foot Exam 1954 Hepatitis B Screening 1972 Well Visit 65+ 12/07/2019 Covid-19 Vaccine (6 - 2023-2 5 season) 2024 12/23/2023, 12/21/2022, 03/29/2021, Additional history exists DTaP/Tdap/Td Vaccine (2 - Td or Tdap) 06/28/2024 06/28/2014 Lipid Panel 02/24/2025 02/25/2024 Zoster Vaccine Completed 01/22/2021, 11/01/2020 Pneumococcal vaccine 65+ Completed 12/28/2021, 11/19 Influenza Vaccine Completed 12/31/2023, , 02/15/2022, Additional history exists Procedures Procedure Name Priority Date/Time Associated Diagnosis Comments CT BODY OUTSIDE REFERENCE Routine 07/08/2024 11:25 AM CDT US TRANSFER OF OUTSIDE FILMS Routine 07/08/2024 10:23 AM CDT US TRANSFER OF OUTSIDE FILMS Routine 07/03/2024 1:22 AM CDT IR OUTSIDE REFERENCE Routine 07/03/2024 1:19 AM CDT CARDIOLOGY DOCUMENT SCAN 07/02/2024 from Last 3 Months Results * CT Body Outside Reference (07/08/2024 11:25 AM CDT) Impressions [facility] - 07/08/2024 11:25 AM CDT These images are for Reference purposes only and have not been reviewed by [facility]. There will be no report generated by a [facility] Radiologist. Narrative [facility] - 07/08/2024 11:25 AM CDT EXAMINATION: Images For Reference Purposes Only us Raad Zimmer MD IMG CT PROCEDURES Final Resul t Performing Organization Address [facility] de Phone Number [email or web address] * US Outside Reference (07/08/2024 10:23 AM CDT) Impressions [facility] - 07/08/2024 10:23 AM CDT These images are for Reference purposes only and have not been reviewed by [facility]. There will be no report generated by a [facility] Radiologist. Narrative [facility] - 07/08/2024 10:23 AM CDT EXAMINATION: Images For Reference Purposes Only us Raad Zimmer MD IMG US PROCEDURES Final Resul t Performing Organization Address [facility] de Phone Number [email or web address] * US Outside Reference (07/03/2024 1:22 AM CDT) Impressions [facility] - 07/03/2024 1:22 AM CDT These images are for Reference purposes only and have not been reviewed by [facility]. There will be no report generated by a [facility] Radiologist. Narrative [facility] - 07/03/2024 1:22 AM CDT EXAMINATION: Images For Reference Purposes Only us Yahir Carlin MD PhD IMG US PROCEDURES Final Re sult Performing Organization Address [facility]/State/ZIP Co de Phone Number [email or web address] * IR Outside Reference (07/03/2024 1:19 AM CDT) Impressions GEOVANNI - 07/03/2024 1:19 AM CDT These images are for Reference purposes only and have not been reviewed by [facility]. There will be no report generated by a [facility] Radiologist. Narrative [facility] - 07/03/2024 1:19 AM CDT EXAMINATION: Images For Reference Purposes Only us Yahir Carlin MD PhD IMG IR PROCEDURES Final Re sult [email or web address] * Cardiology Document Scan (07/02/2024) Anatomical Region Laterality Modality Other us Provider Scanning [facility] PROCEDURES Edited Result - Final from Last 3 Months Insurance T MEDICARE GOLD Care Teams Rubber Goods Tester Relationship Specialty Start Date End Date Dandy Duarte DO [address] [place] [id number] PCP - General Family Medicine 07/02/24 Pedrito Rai Jr., MD [address] [facility] [address] [place] [phone] Referring Physician Cardiology 07/07/24
--- OUTSIDE RECORDS SUMMARY | 2024-07-27 07:30 | XMS_ITS | Data Portability ---
Author Organization [facility] Address [address] [place] [address] Care Team Providers Care Legal Aide Name Role Phone KAYY MARTINEZ Primary Care Provider [phone] Assessment No assessment recorded. Plan of Treatment Reminders Order Date Submit Date Provider Last Modified By Organization Details Last Modified Time Details Appointments None recorded. Lab HbA1c (hemoglobi n A1c), blood 2019 020 [email or web address] In-Office Order, Internal Use Only DO Not Attach Compendium DO Not Attach Compendium, Do Not Delete/merge, [id number] 0 12:52:25 albumin/cr eatinine, mass ratio, urine 2019 020 MIL MEDRANO, [address] [place] [address], [facility] [address], [place], [address], 0 12:54:07 lipid panel, serum 2019 020 MIL MEDRANO, [address] [place] [address], [facility] [address], [place], [address], 0 12:54:07 CMP, serum or plasma 2019 020 MILDA MEDRANO, [address] [place] [address], [facility] [address], [place], [address], 0 12:54:07 CBC w/ auto diff 2019 020 MIL MEDRANO, [address] [place] [address], [facility] [address], [place], [address], 0 12:54:07 HbA1c (hemoglobi n A1c), blood 2019 020 [email or web address] In-Office Order, Internal Use Only DO Not Attach Compendium DO Not Attach Compendium, Do Not Delete/merge, [id number] 0 13:12:17 HbA1c (hemoglobi n A1c), blood 2018 019 MIL [facility], [address] [place] [address], [address], [place], [address], 9 07:12:48 CMP, serum or plasma 2018 019 YELM [facility], [address] [place] [address], [address], [place], [address], 9 07:12:47 microalbum in, urine 2018 019 Y[facility]M [facility], [address] [place] [address], [address], [place], [address], 9 07:12:48 Referral None recorded. Procedures None recorded. Surgeries None recorded. Imaging None recorded. Medication Orders hydrochlor othiazide 25 mg tablet 2019 020 INTERFACE [id number], [address], [place], [address], 0 12:55:59 lisinopril 40 mg tablet 2019 020 INTERFACE [id number], [address], [place], [address], 0 12:56:08 glimepirid e 2 mg tablet 2019 020 [email or web address] [id number], [address], [place], [address], 0 12:58:25 metformin ER 500 mg tablet,ext ended release 24 hr 2019 [address] [facility][id number], [address], [place], [address], 0 12:56:36 Januvia 100 mg tablet 2019 [email or web address] [facility] #[id number], [address], [place], [address], 0 14:21:09 atorvastat in 40 mg tablet 2019 [address] [facility] #[id number], [address] , [place], [address], 0 12:55:50 metformin ER 500 mg tablet,ext ended release 24 hr 2019 020 INTERFACE Not available 0 13:24:05 glimepirid e 2 mg tablet 2019 020 [email or web address] Not available 0 12:57:07 hydrochlor othiazide 25 mg tablet 2019 020 [email or web address] Not available 0 13:12:17 lisinopril 40 mg tablet 2019 020 [email or web address] Not available 0 13:12:17 hydroxyzin e HCl 10 mg tablet 2019 020 [email or web address] Not available 0 12:09:03 atorvastat in 40 mg tablet 2019 020 [email or web address] Not available 0 13:12:17 Patient TargetsNo targets recorded. Patient Instructions Encounter Date Encounter Id Patient Instructions Last Modified By Organization Details Last Modified Time 08/06/2018 [id number] learning about high blood pressure [email or web address] Not available 08/06/2018 14:57:39 high cholesterol : care instructions [email or web address] Not available 08/06/2018 14:57:39 Reason for Referral None Reported. Results Created Date Observation Date Name Description Value Unit Range Abnormal Flag Note LastModifiedBy Organization Detail LastModifiedTime 11/30/19 20 11/30/2019 HbA1c (hemo globi n A1c), blood HbA1c 9.2 Not Available In-Office Order Internal Use Only DO Not Attach Compendium DO Not Attach Compendium, Do Not Delete/merge, [id number] 11/30/2019 12:19:00 12/17/19 19 12/17/2018 CMP, serum or plasm a glucose 124 mg/dL 65-99 above high normal Not Available [facility] ([facility]) [address] [place], [address], 12/17/2018 07:12:47 12/17/1912/17/2018 CMP, serum or plasm a BUN 26 mg/dL 8-27 Not Available [facility] ([facility]) [address] [place], [address], 12/17/2018 07:12:47 12/17/1912/17/2018 CMP, serum or plasm a creatinine 0.94 mg/dL 0.57-1 .00 Not Available [facility] ([facility]) [address] [place], [address], 12/17/2018 07:12:47 12/17/19 19 12/17/2018 CMP, serum or plasm a eGFR if nonafricn AM 64 mL/mi n/1.7 3 >59 Not Available [facility] ([facility]) [address] [place], [address], 12/17/2018 07:12:47 12/17/1912/17/2018 CMP, serum or plasm a eGFR if africn AM 74 mL/mi n/1.7 3 >59 Not Available [facility] ([facility]) [address] [place], [address], 12/17/2018 07:12:47 12/17/19 19 12/17/2018 CMP, serum or plasm a BUN/creatini ne ratio 28 12- Not Available [facility] ([facility]) [address] [facility] [place], [address], 12/17/2018 07:12:47 12/17/1912/17/2018 CMP, serum or plasm a sodium 139 mmol/ L 134-14 4 Not Available [facility] ([facility]) [address] [facility] [place], [address], 12/17/2018 07:12:47 12/17/1912/17/2018 CMP, serum or plasm a potassium 4.6 mmol/ L 3.5-5. 2 Not Available [facility] ([facility]) [address] [facility] [place], [address], 12/17/2018 07:12:47 12/17/1912/17/2018 CMP, serum or plasm a chloride 102 mmol/ L 96-106 Not Available [facility] ([facility]) [address] [facility] [place], [address], 12/17/2018 07:12:47 12/17/1912/17/2018 CMP, serum or plasm a carbon dioxide, total 21 mmol/ L Not Available [facility] ([facility]) [address] [facility] [place], [address], 12/17/2018 07:12:47 12/17/1912/17/2018 CMP, serum or plasm a calcium 9.7 mg/dL 8.7-10 .3 Not Available [facility] ([facility]) [address] [facility] [place], [address], 12/17/2018 07:12:47 12/17/1912/17/2018 CMP, serum or plasm a protein, total 7.5 g/dL 6.0-8. 5 Not Available [facility] ([facility]) [address] [facility] [place], [address], 12/17/2018 07:12:47 12/17/1912/17/2018 CMP, serum or plasm a albumin 4.6 g/dL 3.6-4. 8 Not Available [facility] ([facility]) [address] [place], [address], 12/17/2018 07:12:47 12/17/1912/17/2018 CMP, serum or plasm a globulin, total 2.9 g/dL 1.5-4. 5 Not Available [facility] ([facility]) [address] [facility] [place] [place], [address], 12/17/2018 07:12:47 12/17/1912/17/2018 CMP, serum or plasm a A/G ratio 1.6 1.2-2. 2 Not Available [facility] ([facility]) [address] [place], [address], 12/17/2018 07:12:47 12/17/1912/17/2018 CMP, serum or plasm a bilirubin, total 0.6 mg/dL 0.0-1. 2 Not Available [facility] ([facility]) [address] [place], [address], 12/17/2018 07:12:47 12/17/1912/17/2018 CMP, serum or plasm a alkaline phosphatase 64 IU/L 39-117 Not Available [facility] ([facility] [address] [facility] [place], [address], 12/17/2018 07:12:47 12/17/1912/17/2018 CMP, serum or plasm a AST (SGOT) 15 IU/L 0-40 Not Available [facility] ([facility]) [address] [facility] [place], [address], 12/17/2018 07:12:47 12/17/1912/17/2018 CMP, serum or plasm a ALT (SGPT) 13 IU/L 0-32 Not Available [facility] ([facility]) [address] [facility] [place], [address], 12/17/2018 07:12:47 12/17/19 19 12/17/2018 HbA1c (hemo globi n A1c), blood hemoglobin A1C 7.2 % 4.8-5. 6 above high normal Predi abete s: 5.7 - 6.4 Diabe nancy: >6.4 Glyce esdras contr ol for adult s with diabe nancy: <7.0 Not Available [facility] ([facility]) [address] [facility], [place], [address], 12/17/2018 07:12:48 12/17/19 19 12/17/2018 micro album in, urine albumin, urine <3.0 ug/mL not estab. Not Available [facility] ([facility]) [address] [facility], [place], [address], 12/17/2018 07:12:48 12/17/19 19 12/17/2018 diabe nancy patie nt educa tion pdf image . Not Available [facility] ([facility]) [address] [facility], [place], [address], 12/17/2018 07:12:49 05/06/19 20 05/06/2019 HbA1c (hemo globi n A1c), blood HbA1c 8.8% Not Available In-Office Order Internal Use Only DO Not Attach Compendium DO Not Attach Compendium, Do Not Delete/merge, [id number] 05/06/2019 13:03:08 Result Notes None recorded. Problems Name Problem SNOMED Code Status Onset Date Resolution Date Notes Provider Name and Address Organization Details Recorded Time Body mass index 30+ - obesity 358909626 Active 2017 Not Available [facility] 12:29:54 Adult health examinati on Active 2016 Not Available [facility] 12:29:54 Screening for disorder Active 2016 Not Available [facility] 12:29:54 Tobacco dependenc e syndrome 65247117 Active 2016 Not Available [facility] 12:29:54 Essential hypertens ion 94069379 Active 2016 Not Available [facility] 12:29:54 Obesity 608895583 Completed 201611/05/2017 Betty Escalante PA-C Attn: Accounting ,[address] [facility], [place], [address] , [facility] 8 09:25:41 History of hepatitis C 55218185226 101 Active 2016 Not Available [facility] 1 12:29:54 Hepatitis C antibody detected 465358371 Completed 201611/24/2018 Char Major MD Attn: Accounting ,[address] [facility], [place], [address] , [facility] 9 11:24:34 Blood glucose outside reference range 199709010 Completed 201611/24/2018 Char Major MD Attn: Accounting ,[address] [facility], [place], [address] , [facility] 9 11:24:42 Allergic dispositi on 010036338 Active 2016 Not Available [facility] 1 12:29:54 Diabetes mellitus 12268505 Active 2016 Not Available [facility] 12:29:54 Hyperlipi demia 75078178 Active 2016 Not Available [facility] 12:29:54 Problem Notes None recorded. Procedures Surgical History Date Name Laterality Status Provider Name and Address Organization Details Recorded Time 8 Tonsillectomy completed Leandro Benton [facility] 06/26/2016 11:42:35 Imaging Results None recorded. Procedure Notes None recorded. Medical Equipment None Reported. Allergies No known drug allergies Medications Name Sig Start Date Stop Date Status Note LastModified by Organization Details LastModified Time atorvastati n 40 mg tablet TAKE 1 TABLET BY MOUTH EVERY DAY active Not Available Not Available No t Available metformin 500 mg tablet Take 2 tablets twice a day by oral route. 09/26 completed Not Available Not Available Not Available cetirizine 10 mg tablet Take 1 tablet every day by oral route. 08/06 completed OTC Not Available Not Available Not Available fluconazole 150 mg tablet 1 tablet for yeast infection 11/05 completed Not Available Not Available Not Available ampicillin 500 mg capsule TAKE 1 CAPSULE BY MOUTH FOUR TIMES A DAY UNTIL GONE active Not Available Not Available No t Available aspirin 81 mg tablet,kiah yed release Take 1 tablet every day by oral route. active OTC Not Available Not Available No t Available glimepiride 2 mg tablet TAKE 1 TABLET BY MOUTH EVERY DAY DIRECTED active Not Available Not Available No t Available glimepiride 1 mg tablet TAKE 1 TABLET(S) EVERY DAY BY ORAL ROUTE. FOR DIABETES 05/06 completed Not Available Not Available Not Available nitrofurant oin macrocrysta l 100 mg capsule Take 1 capsule twice a day by oral route for 5 days. 11/05 completed Not Available Not Available Not Available glimepiride 4 mg tablet TAKE 1 TABLET BY MOUTH EVERY DAY DIRECTED active Not Available Not Available No t Available lisinopril 20 mg-hydrochl orothiazide 25 mg tablet Take 1 tablet every day by oral route. 09/26 completed Not Available Not Available Not Available hydrochloro thiazide 25 mg tablet TAKE 1 TABLET BY MOUTH EVERY DAY active Not Available Not Available No t Available albuterol sulfate HFA 90 mcg/actuati on aerosol inhaler Inhale 2 puffs every 4 hours by inhalatio n route. 11/05 completed Not Available Not Available Not Available hydroxyzine HCl 10 mg tablet Take 1 mg 3 times a day by oral route as needed for 30 days. 11/29 completed Not Available Not Available Not Available lisinopril 40 mg tablet TAKE 1 TABLET BY MOUTH EVERY DAY active Not Available Not Available No t Available metformin ER 500 mg tablet,exte nded release 24 hr TAKE 2 TABLETS TWICE A DAY active Not Available Not Available No t Available metformin ER 1,000 mg tablet,exte nded release 24hr (osmotic) Take 1 tablet twice a day by oral route. 05/06 completed Not Available Not Available Not Available metformin ER 1,000 mg tablet,exte nded release 24 hr Take 1 tablet twice a day by oral route. 08/06 completed Not Available Not Available Not Available Januvia 100 mg tablet TAKE 1 TABLET BY MOUTH EVERY DAY DIRECTED active Not Available Not Available No t Available metformin ER 1,000 mg 24 hr tablet,exte nded release (gastric reten.) Take 1 tablet twice a day by oral route. 05/06 completed Not Available Not Available Not Available Vitals Date Recorded Body height Body mass index (BMI) Body weight Body temperature Heart rate Oxygen saturation Oxygen saturation in Arterial blood by Pulse oximetry Systolic blood pressure Diastolic blood pressure Provider Name and Address Organization Details Last Updated DateTime 9 162.56 cm 32.6 kg/m2 94066.5 5 g 98 [degF] 82 /min 96 % 96 % 108 mm[Hg] 82 mm[Hg] Alecia Langston MA [facility] 9 11:09:38 Date Recorded Body height Body mass index (BMI) Body weight Body temperature Oxygen saturation Oxygen saturation in Arterial blood by Pulse oximetry Heart rate Systolic blood pressure Diastolic blood pressure Provider Name and Address Organization Details Last Updated DateTime 9 162.56 cm 32.4 kg/m2 62076.9 6 g 98.1 [degF] 97 % 97 % 94 /min 106 mm[Hg] 78 mm[Hg] Alecia Langston MA [facility] 9 14:41:34 Date Recorded Body height Body mass index (BMI) Body weight Body temperature Heart rate Oxygen saturation Oxygen saturation in Arterial blood by Pulse oximetry Systolic blood pressure Diastolic blood pressure Provider Name and Address Organization Details Last Updated DateTime 9 162.56 cm 31.8 kg/m2 99633.5 9 g 98.1 [degF] 94 /min 98 % 98 % 120 mm[Hg] 80 mm[Hg] Alecia Langston [place] [facility] 9 10:10:16 Date Recorded Body height Body mass index (BMI) Body weight Body temperature Oxygen saturation Oxygen saturation in Arterial blood by Pulse oximetry Heart rate Respiratory rate Systolic blood pressure Diastolic blood pressure Provider Name and Address Organization Details Last Updated DateTime 0 162.56 cm 33.5 kg/m2 65562.5 1 g 98.4 [degF] 100 % 100 % 84 /min 14 /min 124 mm[Hg] 80 mm[Hg] Janell Obando MA [facility] 0 12:31:07 Date Recorded Body height Body mass index (BMI) Body weight Heart rate Oxygen saturation Oxygen saturation in Arterial blood by Pulse oximetry Systolic blood pressure Diastolic blood pressure Provider Name and Address Organization Details Last Updated DateTime 0 162.56 cm 32 kg/m2 01912.5 8 g 93 /min 98 % 98 % 124 mm[Hg] 70 mm[Hg] Silke Diane MA [facility] 0 12:08:32 Social History Question Answer Notes LastModified by Organizat ion Details LastModified Time Tobacco Smoking Status Current [facility]/26/2016 11:41:51 What Is Your Level Of Alcohol Consumption? None Information not available 06/26/2016 What Is Your Level Of Caffeine Consumption? Moderate Information not available 06/26/2016 How Much Tobacco Do You Chew? None Information not available 06/26/2016 Do You Or Have You Ever Used E-cigarettes Or Vape? Never Used Electronic Cigarettes Information not available 11/30/2019 What Was The Date Of Your Most Recent Tobacco Screening? 11/30/2019 Information not available 11/30/2019 Do You Or Have You Ever Used Smokeless Tobacco? Never Used Smokeless Tobacco Information not available 11/30/2019 How Much Tobacco Do You Smoke? 0.5 PPD Information not available 06/26/2016 On What Date Was Tobacco Cessation Counseling Provided? 11/30/2019 Information not available 11/30/2019 How Many Years Have You Smoked Tobacco? 35 [email or web address] Information not available 06/26/2016 Sex: Unknown Functional Status None recorded. Mental Status None recorded. Family History Relationship Description Onset Age of this Age Resolved Age Notes LastModified by Organization Details LastModified Time Father Diabetes mellitus Not available 2016 11:41:04 Father Hypertensive disorder Not available 2016 11:41:39 Father Heart disease 63 [email or web address] Not available 2016 11:49:11 Sister Diabetes mellitus Not available 2016 11:41:14 Sister Asthma Not available 11:41:21 Sister Hypertensive disorder Not available 2016 11:41:39 Brother Hypertensive disorder Not available 2016 11:41:39 Medical History Condition Response Coronary Artery Disease N Other N High Blood Pressure Y Atrial Fibrillation N Kidney or Bladder Problems N Thyroid Problems N GI Problems N Depression N COPD N Blood Clots N Skin Problems N Anemia N Heart Attack ([place]) N Anxiety Disorder N Diabetes Y Muscle, Joint, or Bone Problems N Seizures/Epilepsy N Acid Reflux (GERD) N Cancer N Stroke N Asthma Y Allergies Y High Cholesterol Y Hepatitis Y Liver Disease N Headaches N Heart Failure N Osteoporosis N Gynecological History Statement/Question Response Menses Monthly N If Post Menopausal, Age at Menopause 54 Age at Menarche 14 Current Control Method Tubal Ligat ion Date of LMP Obstetrics History GPAL:G 3 P 2 1 0 0 Type Value Full Term 2 Premature 1 Total 3 Immunizations Vaccine Type Date Status Note Provider Nam e and Address Organization Details Recorded Time SARS-COV-2 (COVID-19) vaccine, UNSPECIFIED 09/18/2020 completed AMITA LUX Attn: Accounting,[address] [place], [address], [place] [facility] 09/20/2020 08:18:29 SARS-COV-2 (COVID-19) vaccine, UNSPECIFIED 10/09/2020 completed AMITA LUX Attn: Accounting,[address] [place], [address], [place] [facility] 10/11/2020 09:12:01 zoster recombinant 11/01/2020 completed AMITA LUX Attn: Accounting,[address] [place], [address], [place] [facility] 11/03/2020 08:57:56 COVID-19, mRNA, LNP-S, PF, 30 mcg/0.3 mL dose 03/29/2021 completed Silke Diane MA null, [place] [facility] 04/02/2021 13:40:17 Past Encounters Encounter ID Performer Location Encounter Start Date Encounter Closed Date Diagnosis/Indication Diagnosis SNOMED-CT Code Diagnosis ICD10 Code Diagnosis Note [id number] DEONTE Joseph (Adult Med) [address] [place] [address], [place] [address] 06/26/2016 11:06:45 06/27/2016 10:35:37 Screening for disorder 078387871 Z13.9 Adult heal th examination 429929343 Z00.01 60YO female with a PMH signficant for hx/o treated Hep C 6 years ago with riboflavin and interferon , HTN, tobacco use, hyperlipid emia here to establish care. SHe was previously seen by Dr. Ghazal sotelo at [place]. but is switching d/t her daughter's recommenda tion. Essential hypertension 60650623 I10 164/98 - not WNL, NAD - will restart BP medication s todayAdvis ed goal is <140/90 - which she states that her BP runs when she is on her medication She has a cuff at home Tobacco de pendence syndrome 99872333 F17.290 Advised to quit Screening for malignant neoplasm of colon 199568923 Z12.11 Obesity 467334873 E66.9 Advised 30 minutes of exercise 5 days/week Advised to not drink her calories Advised 3 balanced meals/day with plenty of fruits and vegetables Screening for malignant neoplasm of breast 609686090 Z12.31 History of hepatitis C 9282623232 9101 Z86.19 Will screen today Allergic disposition 604 119083 Z91.09 [id number] DEONTE Joseph (Adult Med) [address] [place] [phone] 07/22/2016 08:48:35 07/22/2016 09:34:00 Essential hypertension 82630008 I10 150/82 - not WNL but improved, NAD -Advised goal is <140/90 - which she states that her BP runs when she is on her medication She has a cuff at homeWill increase lisinopril to 40mg QD and c/w HCTZ 25mgPatien t to contact clinic in 1-2 weeks with BP readingsAd vised DASH diet Blood gluc ose outside reference range 449386444 R73.09 Will initiate metfromin 1000mg BID - start with 500mg BID x 1 week and then go up to 1000mgFBS: 243 - likely dx of DMPatient states that she knows that she likely has DMWill check a1c today Allergic disposition 605 896924 Z91.09 Will send inhalers to [facility] Obesity 667908661 E66.9 Advised 30 minutes of exercise 5 days/week Advised to not drink her calories Advised 3 balanced meals/day with plenty of fruits and vegetables [id number] DEONTE Joseph (Adult Med) [address] [place] [phone] 09/26/2016 08:59:08 09/26/2016 09:38:05 Tobacco dependence syndrome 73994082 F17.290 Advised to quit Essential hypertension 36017156 I10 132/82 - WNL, NAD -Advised goal is <140/90 - which she states that her BP runs when she is on her medication She has a cuff at homec/w lisinopril to 40mg QD HCTZ 25mg Advised DASH diet Obesity 488732695 E66.9 She is down 8lbs since decreasing her soda intake Advised 30 minutes of exercise 5 days/week Advised to not drink her calories Advised 3 balanced meals/day with plenty of fruits and vegetables Diabetes mellitus 927561 09 E11.9 New onset 08/12/161c : 10.2metfor min 1000mg BID - will add glimepirid e 1mg QDPatient to take aspirin OTC Given lots of infomation concerning DM Type 2At this time she does not want to see a specialist Discussed good foot care Hyperlipidemia 41498875 E78.5 Will initiate atorvastat in 40mg qPM at this timeAdvise d to stay away from fatty and greasy foods [id number] DEONTE Joseph (Adult Med) [address] [place] [phone] 01/08/2017 08:47:59 01/08/2017 13:28:15 Diabetes mellitus 73554760 E11.9 Diagnosed 08/12/161c : 7.1 down from 10.2 in November. Goal A1c less than/equal to 7.0Continu e metformin 1000mg BID and glimepirid e 1mg QD (meds reordered) Pt to begin walking again for exercise Repeat a1c one month prior to appointmen t in 6 months Hyperlipidemia 31947264 E78.5 Continue atorvastat in 40mg qPM at this timeAdvise d to stay away from fatty and greasy foods Essential hypertension 92911185 I10 144/70 - NAD, not WNLAdvised goal is <140/90 - which she states that her BP runs when she is on her medication She has a cuff at homec/w lisinopril to 40mg QD HCTZ 25mg Advised DASH diet Tobacco de pendence syndrome 79445446 F17.290 Advised to quit Obesity 426995828 E66.9 She is down 4lbs since decreasing her soda intake Advised 30 minutes of exercise 5 days/week Advised to not drink her calories Advised 3 balanced meals/day with plenty of fruits and vegetables [id number] [facility] (Peds) [address] [place] [phone] 02/03/2017 14:02:20 02/04/2017 12:02:31 Dysuria 00896076 R30.0 Urinary tr act infectious disease 01766693 N39.0 Advised to increase water intakeTake abx as prescribeA zo OTC - only for one more day because she has been taking for 2 days alreadySta y away from sugary drinks [id number] DEONTE Joseph (Adult Med) [address] [place] [phone] 11/05/2017 08:28:19 11/06/2017 08:58:11 Diabetes mellitus 57594100 E11.9 a1c: 7.7 on 11/05/17inc rease to metformin 1000mg ER BID and glimepirid e 1mg QD (meds reordered) Pt to begin walking again for exercise Check BS QD - goal is ~100 fasting Contact office if BS is <80 or >200 Hyperlipidemia 00539870 E78.5 Continue atorvastat in 40mg qPM at this timeAdvise d to stay away from fatty and greasy foods Essential hypertension 12736738 I10 114/80 - NAD, WNLc/w lisinopril to 40mg QD HCTZ 25mg Discussed DASH diet Advised 30 minutes of exercise minimum dailyAdvis ed tobacco, alcohol, caffeine all increase BPAdvised goal for BP is <140/90 Tobacco de pendence syndrome 06939231 F17.290 Advised to quit Adult [facility] th examination [id number] Z00.01 Screening for malignant neoplasm of colon 067174302 Z12.11 Allergic disposition 609 340121 Z91.09 c/w cetirizine 10mg QD [id number] DEONTE Joseph (CLINICAL NURSE EDUCATOR) [address] [place] [address] [phone] 11/10/2017 08:26:18 11/10/2017 10:31:44 Gynecologic examination 00670289 Z01.411 Screening for malignant neoplasm of breast 757946241 Z12.31 Tobacco de pendence syndrome 95895961 F17.290 Advised to quit Body mass index 30+ - obesity 083737562 Z68.32 Advised 30 minutes of exercise 5 days/week Advised to not drink her calories Advised 3 balanced meals/day with plenty of fruits and vegetables [id number] IAM Avelar (Adult Med) [address] [place] [address] [phone] 07/21/2018 10:22:05 07/21/2018 14:25:45 [id number] MD Cristian Meyers (Adult Med) [address] [place] [address] [phone] 08/06/2018 14:13:24 08/07/2018 09:14:30 Diabetes mellitus 76961552 E11.9 Essential hypertension 49197540 I10 Hyperlipidemia 58111851 E78.5 [id number] MD Cristian Meyers (Adult Med) [address] [place] [address] [phone] 11/24/2018 10:02:48 11/25/2018 10:48:43 Diabetes mellitus 06566400 E11.9 Tobacco de pendence syndrome 08687939 F17.200 Essential hypertension 21765419 I10 Hyperlipidemia 33780402 E78.5 History of hepatitis C [id number] 9101 Z86.19 Body mass index 30+ - obesity 867462257 Z68.31 [id number] AMITA LUX (Adult Med) [address] [place] [address] [phone] 05/06/2019 12:10:57 05/06/2019 13:13:57 Diabetes mellitus 57255049 E11.9 Last A1C: 8.8 today in the office 05/06/2019 Fasting BG range: 120-140 Current Therapy: metformin 1000 mg BID and glimepirid e 1 mg qd Statin: atorvastat in 40 mg CARON/ARB: lisinopril 40 mg Foot Exam: due at next visit Microalbum in: due with labs at next visit Pneumovax 23: due at next visit Pt was counseled on low carbohydra te diet to better manage diabetes. We went discussed pt's diet at length and I made specific dietary recommenda tions. I also encouraged regular exercise of 30-60 minutes most days of the week. Pt was encouraged to get yearly diabetic eye exams as well. - Continue to watch diet- Will increase glimepirid e to 2 mg instead of 1 mg- follow-up in 3 months Essential hypertension 13444422 I10 BP Today: 124/80c/w hctz and lisinopril Discussed DASH diet Advised 30 minutes of exercise minimum daily Advised tobacco, alcohol, caffeine all increase BP Advised goal for BP is <140/90 Contact office if BP is > 140/90 consistent ly DIscussed consequenc es of HTN including kidney, eye, heart damage, stroke, and even RTC 6 months for BP check Hyperlipidemia 03560395 E78.5 Due to check at next visit- Will renew medication Anxiety 30199345 F41.9 Requesting anti-anxie ty medication to help with quitting smoking, states she smokes to help calm her nervesPHQ 05/30 was negative in office today (0 out of 27) - Will start hydroxyzin e 10 mg PRN Tobacco de pendence syndrome 41597649 F17.200 Interested in quitting smoking, states she used to smoke 1 pack every 2-3 days but her has recently started using drugs again and it is causing her to be more stressed so now smoking 1 ppd.- Provided informatio n on patches and chantix, patient will call office with her decision [id number] AMITA LUX (Adult Med) [address] [place] [address] [phone] 11/30/2019 11:39:08 12/02/2019 13:52:45 Diabetes mellitus 69262628 E11.9 Last A1C: 9.2 today (11/30/2019 ), 8.8 (05/06/2019 ) Fasting BG range: 150 - 170 Current Therapy: metformin 1000 mg BID and glimepirid e 2 mg qd Statin: atorvastat in 40 mg CARON/ARB: lisinopril 40 mg Foot Exam: due at next visit Eye Exam: 10/2018, patient aware she is due for another annual eye exam Microalbum in: due with labs at next visit Pneumovax 23: due at next visit Pt was counseled on low carbohydra te diet to better manage diabetes. We went discussed pt's diet at length and I made specific dietary recommenda tions. I also encouraged regular exercise of 30-60 minutes most days of the week. Pt was encouraged to get yearly diabetic eye exams as well. - Encouraged her to watch her diet more, may need to consider a different anxiety medication to help control anxiety/st ress to help her decrease her emotional eating- continue with metformin 1000 mg BID- will switch glimepirid e to Januvia with the hope of better control, patient aware if her BS levels do not become more controlled , she may need 3-4 oral medication s- Start checking BS more often, try for at least once daily in the morning- will check annaul labs- follow-up in 3 months Hyperlipidemia 72147477 E78.5 Last cholestero l panel was 2018Due to recheck- provided her with lab orders today - C/w medication Essential hypertension 63508283 I10 BP Today: 124/70c/w hctz 25 mg and lisinopril 40 mg Discussed DASH diet Advised 30 minutes of exercise minimum daily Advised tobacco, alcohol, caffeine all increase BP Advised goal for BP is <140/90 Contact office if BP is > 140/90 consistent ly DIscussed consequenc es of HTN including kidney, eye, heart damage, stroke, and even - c/w medication s- RTC 6 months for BP check Health Concerns Section Related Observation LastModified by Organization Detai ls LastModified Time None Recorded Concern Status LastModified by Organization Details LastModified Time None Recorded Advance Directives Directive None Recorded Payers Encounter Date Sequence Insurance Name Policy Number Policy Brown Covered Member ID Brown Member ID Guarantor Name 07/21/2018 1 [place] [id number] Ximena Stallings [id number] Ximena Stallings 08/06/2018 1 [place]) [id number] Ximena Stallings [id number] Ximena Stallings 11/24/2018 1 [employer] [id number] Ximena Stallings [id number] Ximena Stallings 05/06/2019 1 [employer] [id number] Ximena Stallings [id number] Ximena Stallinsg 11/30/2019 2 [place] Ximena Stallings [id number] Ximena Stallings 11/30/2019 1 [employer] [place]MEDIC[place]ACEMENT/ [place]VANT[place] - [id number] Ximena Stallings [id number] Ximena Stallings Notes Date Note Type Note Provider Name and Address Organization Details Recorded Time 9 text/htm l changing PCP. No acute problems. Treated about eigth years ago for Chronic HCV genotype 2 Char Major MD Attn: [facility],[address] [place], [address], [facility] 08/06/2018 14:57:42 9 text/htm l no new complaints. FBG averaging 125 mg/dl Char Major MD Attn: [facility],[address] [place], [address], [facility] 11/24/2018 11:27:50 0 text/htm l DiabetesReported bypatient.Review finger sticks:fastin-140 Duration:chronic Control:usually well controlled;worsened since last visit; treated with diet and oral medications; hemoglobin A1C has been 7-8; hemoglobin A1C goal is less than 7 Compliance:compliant with medications; compliant with follow-up visits;noncompliant with diet(states she ate a lot of bad food during the holidays);noncompliant with home glucose monitoring Self Care:monitoring glucose weekly; checking feet regularly; taking aspirin daily Associated Symptoms:no weight gain; no weight loss; no dizziness; no sweats; no headaches; no confusion; no increased thirst; no increased appetite; no increased urination; no blurred vision; no numbness of feet; no calluses on feetNotes:Taking metformin 1000 mg BID and glimepiride 1 mg qdHyperlipidemiaReported bypatient.Type of hyperlipidemia:hypercholeste rolemia Duration:chronic Current Therapy:currently taking: (atorvastatin 40 mg); last cholesterol level: (162); last LDL level: (84); last triglyceride level: (181); last HDL level: (42) Compliance:compliant;noncomp liant with diet;does not exercise Complications:no coronary artery disease; no peripheral artery disease;cardiovascular disease; HTN Risk Factors:diabetes;hypertensio nHypertension F/UReported bypatient.Associated Symptoms:no dizziness; no lightheadedness; no chest pain; no shortness of breath; no palpitations; no edema; no calf pain with exertion Lifestyle:regular exercise; limiting/avoiding salt Medications:taking medications as directed; no side effects from medicationNotes:Taking hctz 25 mg and lisinopril 40 mg 63 year old female presents today for follow up of chronic illnesses. No acute concerns today. Interested in quitting smoking, states she used to smoke 1 pack every 2-3 days but her has recently started using drugs again and it is causing her to be more stressed so now smoking 1 ppd. AMITA LUX Attn: [facility],[address] [place], [address], [facility] 05/06/2019 13:29:44 0 text/htm l DiabetesReported bypatient.Review finger sticks:fastin-170 Duration:chronic Control:usually poorly controlled;worsened since last visit; treated with diet and oral medications; hemoglobin A1C has been 8-9; hemoglobin A1C goal is less than 7 Compliance:compliant with medications;noncompliant with followup-visits(Have not seen patient since 04/2019);noncompliant with diet(She has not been watching her diet, she stress eats junk food);noncompliant with home glucose monitoring Self Care:monitoring glucose weekly; checking feet regularly; taking aspirin daily Associated Symptoms:no weight gain; no weight loss; no dizziness; no sweats; no headaches; no confusion; no increased thirst; no increased appetite; no increased urination; no blurred vision; no numbness of feet; no calluses on feetNotes:Taking metformin 1000 mg BID and glimepiride 2 mg qdHyperlipidemiaReported bypatient.Type of hyperlipidemia:hypercholeste rolemia Duration:chronic Current Therapy:currently taking: (atorvastatin 40 mg); last cholesterol level: (162); last LDL level: (84); last triglyceride level: (181); last HDL level: (42) Compliance:compliant;noncomp liant with diet;does not exercise Complications:no coronary artery disease; no peripheral artery disease;cardiovascular disease; HTN Risk Factors:diabetes;hypertensio nHypertension F/UReported bypatient.Associated Symptoms:no dizziness; no lightheadedness; no chest pain; no shortness of breath; no palpitations; no edema; no calf pain with exertion Lifestyle:regular exercise; limiting/avoiding salt Medications:taking medications as directed; no side effects from medicationNotes:Taking hctz 25 mg and lisinopril 40 mg 63 year old female presents today for follow up of chronic illnesses. No acute concerns today. Still smoking 1/2 PPD, she smokes when she is stressed anxious, COVID has only increased her stress and anxiety. Not interested in quitting at this time. AMITA LUX Attn: [facility],[address] [place], [address], [facility] 11/30/2019 13:42:23 OBGyn Episode No OBEpisode recorded.
--- OUTSIDE RECORDS SUMMARY | 2024-07-27 07:30 | XMS_ITS | Encounter Summary ---
Author Organization [facility] Address [facility] [place] [address] Care Team Providers Care Brewery Pumper Name Role Phone Dandy Duarte DO Primary Care Provider + Encounter Details Date Type Department Care Team (Late Contact Info) Description 01/07/2024 MyChart Message Enc [facility] Family & Internal [facility] [address] [place] [address] Dandy Duarte DO [facility] [place] [address] lung screening Social History Tobacco Use Types Packs/Day Years Used Date Smoking Tobacco: Some Days Cigarettes 1 25 Passive Smoke Exposure: Current Smokeless Tobacco: Never Comments:Provider to mortgage counselor Alcohol Use Standard Drinks/Week Comments Not Currently 0 (1 standard drink = 0.6 oz pur e alcohol) PHQ-2 Answer Date Recorded Patient Health Questionnaire-2 Score 0 11/13/2023 Comments No Sex and Gender Information Value Date Recorded Sex Assigned at Female 05/05/2024 12:32 PM CHIEF INTERNAL AUDITOR Legal Sex Female 10:17 AM CHIEF INTERNAL AUDITOR Gender Identity Female 12/25/2021 9:32 AM CDT Sexual Orientation Not on file documented as of this encounter Plan of Treatment Upcoming Encounters Date Type Department Care Team (Late Contact Info) Description 08/17/2024 8:20 AM CDT Office Visit [facility] Family & Internal Medicine - [place] [address] [place] [address] Dandy Duarte DO [facility] [place] [address] 09/03/2024 9:30 AM CDT Office Visit [facility] [phone] Pedrito Rai MD [address] [facility] [address] [place] [phone] documented as of this encounter Visit Diagnoses Not on filedocumented in this encounter Additional Health Concerns Assessment Noted Time PHQ-9 Depression Total Score: 0 05/02/19 21 10:38 AM CHIEF INTERNAL AUDITOR documented as of this encounter Care Teams Brewery Pumper Relationship Specialty Start Date End Date Dandy Duarte DO [address] [place] [address] PCP - General FAMILY PRACTICE 06/06/22 documented as of this encounter
--- OUTSIDE RECORDS SUMMARY | 2024-07-27 07:30 | XMS_ITS | Referral Summary ---
Author Organization [facility] Address [address] [place] [phone] Care Team Providers Care Game Programmer Name Role Phone Dandy Duarte DO Primary Care Provide r Fredi Giordano MD, Pedrito Luanne Unavailable [phone] Encounters Date Type Department Care Team Description 07/26/2024 10:00 AM CDT Office Visit [facility] [address] [facility] 8th Floor [address] Room [address] [place] [phone] Raad Zimmer MD Severe mitral valve stenosis 07/20/2024 Telephone [facility] [address] [place] [address] Advanced [facility] 8th Floor [address] [place] [phone] Yahir Carlin MD PhD 07/08/2024 11:25 AM CDT - 07/08/2024 11:59 PM CDT Hospital Encounter [facility] [address] [place] [address] Discharge Disposition: Discharge to home or self care 07/08/2024 10:23 AM CDT - 07/08/2024 11:59 PM CDT Hospital Encounter [facility] [address] [place] [address] Discharge Disposition: Discharge to home or self care 07/05/2024 Telephone [facility] [address] [place] [address] Advanced [facility] 8th [place] [address] [place] [address] Yahir Carlin MD PhD Patient referral 07/03/2024 1:22 AM CDT - 07/03/2024 11:59 PM CDT Hospital Encounter [facility] ([facility]) [address] [place] [address] Discharge Disposition: Discharge to home or self care 07/03/2024 1:19 AM CDT - 07/03/2024 11:59 PM CDT Hospital Encounter [facility] ([facility]) [address] [place] [address] Discharge Disposition: Discharge to home or self care 07/02/2024 Orders Only [facility] Scanning, Provider from Last 3 Months Allergies Active Allergy Reactions Criticality Noted Date [...] by mouth daily with breakfast Active multivit,Ca,iro j-LM-pyfpoi-lut [phone] bt-njw-abb-mcg tablet Take by mouth Active nitroglycerin (NITROSTAT) [...] with type 2 diabetes wesley litus 06/26/2016 Social History Tobacco Use Types Packs/Day Years Used Date Smoking Tobacco: Former Cigarettes Tobacco Cessation:Counseling Given: Not Answered Comments:Quit smoking 4 months ago Comments Unknown Sex and Gender Information Value Date Recorded Sex Assigned at Not on file Legal Sex Female 3:40 PM CDT Gender Identity Not on file Sexual Orientation Not on file Last Filed [...] 07/26/2024 9:44 AM CDT Plan of Treatment Not on file Procedures Procedure Name Priority Date/Time Associated Diagnosis [...] Outside Reference (07/08/2024 11:25 AM CDT) Impressions [facility] - 07/08/2024 11:25 AM CDT These images are for Reference purposes only and have not been reviewed by [facility]. There will be no report generated by a [facility] Radiologist. Narrative [facility] - 07/08/2024 11:25 AM CDT EXAMINATION: Images For Reference Purposes Only Raad Zimmer MD IMG CT PROCEDURES Final Resul t Performing Organization Address [facility] Co de Phone Number [email or web address] * US Outside Reference (07/08/2024 10:23 AM CDT) Impressions [facility] - 07/08/2024 10:23 AM CDT These images are for Reference purposes only and have not been reviewed by [facility]. There will be no report generated by a [facility] Radiologist. Narrative [facility] - 07/08/2024 10:23 AM CDT EXAMINATION: Images For Reference Purposes Only us Raad Zimmer MD IMG US PROCEDURES Final Resul t [facility] * US Outside Reference (07/03/2024 1:22 AM CDT) Impressions [facility] - 07/03/2024 1:22 AM CDT These images are for Reference purposes only and have not been reviewed by [facility]. There will be no report generated by a [facility] Radiologist. Narrative [facility] - 07/03/2024 1:22 AM CDT EXAMINATION: Images For Reference Purposes Only Yahir Carlin MD PhD IMG US PROCEDURES Final Re sult Performing Organization Address [facility] Co de Phone Number [email or web address] * IR Outside Reference (07/03/2024 1:19 AM CDT) Impressions [facility] - 07/03/2024 1:19 AM CDT These images are for Reference purposes only and have not been reviewed by [facility]. There will be no report generated by a [facility] Radiologist. Narrative [facility] - 07/03/2024 1:19 AM CDT EXAMINATION: Images For Reference Purposes Only Yahir Carlin MD PhD IMG IR PROCEDURES Final Re sult Performing Organization Address [facility] Co de Phone Number [email or web address] * Cardiology Document Scan (07/02/2024) Anatomical Region Laterality Modality Other us Provider Scanning CV CARDIAC SERVICES PROCEDURES Edited Result - Final from Last 3 Months Insurance [employer] MEDICARE GOLD Care Teams Game Programmer Relationship Specialty Start Date End Date Dandy Duarte DO [address] [place] [address] PCP - General Family Medicine 07/02/24 Pedrito Rai Jr., MD [address] [place] [address] [place] [phone] Referring Physician Cardiology 07/07/24
--- NOTE | 2024-07-27 07:40 | ED_ITS ---
HPI - Chest Pain General Chief Complaint: Chest Pain Stated Complaint: Chest pain Time Seen by Provider: 07/27/24 07:01 Source: patient, family (Daughter and grandchildren) and RN notes reviewed Mode of arrival: EMS Limitations: no limitations History of Present Illness HPI narrative: Patient presents with right-sided chest pain that awoke her from her sleep at 5:00 a.m.. She states it radiates to her back and is 5/10 in severity after taking 3 nitroglycerin this morning which she states helped but was the 1st time she took nitro. She did not experience a headache as a result. Aspirin was administered by EMS. She denies shortness of breath, nausea, vomiting, fatigue, or weakness. She has a knit goods washer Dr. Real through [facility]. She was told yesterday that she needs double bypass for history of 2 coronary artery blockages as well as a mitral valve repair. This will be performed in August with Dr Zimmer at [facility]. She states that perhaps she was anxious because of this the pain might have been due to her muscle pain that she gets. Cardiac risk factors HTN: Yes HLD: Yes DM: Yes Obese: Yes Smoker: No Personal history PR/TIA/CVA: No but + CAD Fam Hx PR in first degree relative <65yo: Yes Related Data Home Medications ?Medication ?Instructions ?Recorded ?Confirmed ?Last Taken ?Type atorvastatin 40 mg tablet 40 mg PO DAILY 01/07/23 Unknown History glimepiride 4 mg tablet 4 mg PO QAM 01/07/23 Unknown History hydrochlorothiazide 25 mg tablet 25 mg PO DAILY 01/07/23 Unknown History lisinopril 40 mg tablet 40 mg PO DAILY 01/07/23 Unknown History Allergies Allergy/AdvReac Type Severity Reaction Status Date / Time simvastatin Allergy Unknown Cramping Verified 01/07/23 09:54 of the Muscles PMFSH Past Medical History Medical History Mitral valve insufficiency Blockage of coronary artery of heart Obesity Non-insulin dependent diabetes mellitus Hyperlipidemia Hypertension Surgical History Surgical History No pertinent past surgical history Family History Family History Father Hypertension Cerebrovascular accident Family history of diabetes mellitus in first degree relative Mother Patient's mother is in good health Sibling Patient's sister is in good health Patient's brother is in good health Other Acute myocardial infarction Social History Social History Smoking packs per day: 0.5 Smoking cigarettes per day: 10.0 Smoking status: Former smoker Additional smoking assessment comments: previous per EMR Alcohol intake: current Substance use: never Substance use type: does not use Lack of Transportation: No Lack of Food: Never True Current Housing: I Have Housing Concerned About Future Housing: No Difficulty Paying Gas/Electric Bills: No Difficulty Paying for Meds: No Currently Unemployed: No Education: High School Diploma/GED Difficulty w/ Childcare or Family Care: No Exam 2 Narrative: GENERAL: Well-appearing, well-nourished, and in no acute distress. HEAD: Normocephalic, atraumatic. EYES: Non injected, non icteric ENT: Nares clear, no rhinorrhea or epistaxis. NECK: Supple. CHEST: Speaking in full sentences. No respiratory distress. Equal/symmetric radial pulses bilaterally without deficit. Lungs clear to auscultation bilaterally appreciable wheezes or crackles. HEART: Regular rate and rhythm. . ABDOMEN: Soft, nondistended. EXTREMITIES: Normal range of motion. No bilateral lower extremity edema. SKIN: Warm, dry, no rash. NEURO: No focal deficits. Alert and oriented x3. PSYCH: Normal mood and affect. Course Vital Signs Vital signs: Vital Signs Temperature 97.4 F L 07/27/24 06:11 Pulse Rate 66 07/27/24 06:11 Respiratory Rate 13 07/27/24 06:11 Pulse Oximetry 100 07/27/24 06:11 Oxygen Delivery Room Air 07/27/24 06:11 Temperature 97.4 F L 07/27/24 06:11 Pulse Rate 74 07/27/24 10:31 Respiratory Rate 18 07/27/24 10:31 Blood Pressure 135/94 H 07/27/24 10:31 Pulse Oximetry 99 07/27/24 10:31 Oxygen Delivery Room Air 07/27/24 06:25 MDM - Chest Pain MDM Narrative Medical decision making narrative: Patient presents right-sided chest pain awoke her from sleep at 5:00 a.m.. She describes some radiation towards her back like spasm. She attributes that to muscle spasms she gets but also feels like it might be a anxiety she was told yesterday that she needs a double bypass. In the emergency department he is afebrile with vital signs notable for mild hypertension. HEART SCORE History 2 highly suspicious 1 moderately suspicious 0 slightly suspicious History score [address] depression/elevation not due to LBBB, LVH, or digoxin [address] depression but LBBB, LVH, nonspecific repolarization changes 0 normal ECG score 0 Age 2 >/= 65 1 45-64 0 <45 Age score 2 Risk factors (HTN, hypercholesterolemia, DM, obesity with BMI >30, current smoker or cessation </=3mo), positive fam hx with parent or sibling with CVD before age 65, atherosclerotic disease (prior PR, PCI/CABG, CVA/TIA, or peripheral arterial disease) 2 >/= 3 risk factors or history of atherosclerotic dz 1 - 1-2 risk factors 0 no known risk factors Risk factor score 2 (hypertension, hyperlipidemia, obesity, diabetes, history CAD, and family history) Initial Troponin 2 >3 times normal limit 1 1-3 times normal limit 0 less than or equal to normal limit Troponin score 0 Total HEART Score 4. Repeat troponin normal. Normocytic anemia. Has been appreciated before. Hyperglycemia without anion gap acidosis. Creatinine appears consistent with baseline thus chronic kidney disease. While there are other etiologies that could explain patient's pain, she certainly has risk factors and the fact that she has known blockages that warrant upcoming bypass make her presentation concerning. However after speaking with Dr. Serna, non principal consulting engineer on-call today, advises ACS has not been demonstrated so reasonable to follow up with her specialists. Discharged home in stable condition. Differential Diagnosis Differential diagnosis: Likely stable angina, unstable angina pectoris, atypical chest pain, st elevation myocardial infarction, chest pain, biliary colic and other (Aortic dissection; musculoskeletal, anxiety) Lab Data Attestation: I reviewed the patient's lab results. 07/27/24 06:22 07/27/24 06:22 Labs: Lab Results 07/27/24 07/27/24 Range/Units 06:22 09:12 WBC 7.8 (4.5-10.0) K/mm3 RBC 3.46 L (4.2-5.4) M/mm3 Hgb 10.5 L (12.0-15.0) g/dL Hct 32.8 L (37.0-47.0) % MCV 94.8 (80-100) fl MCH 30.3 (26-34) pg MCHC 32.0 (32-36) g/dl RDW 14.1 (11.5-14.5) % Plt Count 195 (150-375) k/mm3 MPV 11.9 H (7.4-10.4) fl Immature Gran % (Auto) 0.5 (0-0.5) % Neut % (Auto) 57.2 (45.5-73.1) % Lymph % (Auto) 28.6 (18.3-44.2) % [place] % (Auto) 7.3 (2.6-8.5) % Eos % (Auto) 5.5 H (0-4.4) % Baso % (Auto) 0.9 (0.2-1.2) % Lymph # (Auto) 2.23 (0.9-3.2) K/mm3 [place] # (Auto) 0.6 (0.1-0.6) K/mm3 Eos # (Auto) 0.4 H (0-0.3) K/mm3 Baso # (Auto) 0.1 (0.0-0.1) K/mm3 Abs Immat Gran (auto) 0.04 H (0.00-0.031) K/mm3 Absolute Neuts (auto) 4.5 (1.3-6.7) K/mm3 Absolute Nucleated RBC 0.000 (0.0-0.012) K/mm3 Nucleated RBC % 0.0 (0.0-0.2) % PT 13.8 (11.1-14.7) Seconds INR 1.0 APTT 28.8 (22.3-36.8) Seconds Sodium 140 (137-145) mmol/L Potassium 4.8 (3.4-5.0) mmol/L Chloride 108 H (98-107) mmol/L Carbon Dioxide 22 (22-30) mmol/L Anion Gap 10 (4-12) mmol/L BUN 25 H (7-17) mg/dL Creatinine 1.29 H (0.7-1.0) mg/dL Estim Creat Clear Calc 38 ml/min Estimated GFR 41 L (59 - ) Glucose 187 H (65-110) mg/dL Calcium 9.1 (8.4-10.2) mg/dL Total Bilirubin 0.5 (0.2-1.3) mg/dL AST 19 (14-36) U/L ALT 18 (6-35) U/L Alkaline Phosphatase 63 (38-126) U/L Troponin I < 0.012 < 0.012 (0.000-0.034) ng/mL Total Protein 7.0 (6.3-8.2) g/dL Albumin 4.2 (3.5-5.1) g/dL Lipase 71 (23-300) U/L Imaging Data Radiologist's impression: Impression: Normal chest. MPRESSION: CHEST: 1. No evidence of aortic dissection or pulmonary embolism. 2. Trace of bilateral pleural effusions seen posteriorly. ABDOMEN/PELVIS: 1. No evidence of aortic dissection. 2. No evidence of appendicitis, diverticulitis or intestinal obstruction 3. Small sliding hiatus hernia. ECG Data EKG #1: Attestation: I personally reviewed and interpreted this ECG as follows: ECG completion date: 07/27/24 ECG completion time: 06:23 Interpretation: Normal sinus rhythm at a rate of 66 beats per minute. OH interval 151. QRS 79. QT/QTC 409/423. Good R-wave progression across the precordial leads. No T- wave inversions except biphasic in lead 3 but otherwise upright in normal in contiguous inferior leads 2 and AVF. EKG #2: Attestation: I personally reviewed and interpreted this ECG as follows: ECG completion date: 07/27/24 ECG completion time: 09:14 Interpretation: Normal sinus rhythm at a rate of 76 beats per minute. OH interval 154. QRS 77. QT/QTC 393/423. Good R-wave progression across the precordial leads. T-wave inversion in 3 but otherwise upright in normal in contiguous inferior leads 2 and AVF. Discharge Plan Discharge Clinical Impression: Chest pain, Normocytic anemia, Hyperglycemia due to diabetes mellitus, CKD (chronic kidney disease), Hiatal hernia, Bilateral pleural effusion Patient Disposition: Home Condition: Stable Instructions: Antibiotic Form, Chest Pain (ED), Hiatal Hernia (DC), Chronic Kidney Disease (ED), Chronic Kidney Disease Diet (DC), Pleural Effusion (DC), Anemia (ED), Diabetic Hyperglycemia (ED) Additional Instructions: Acute Coronary SYndrome has been ruled out. It is important you follow-up with your care team including her knit goods washer and cardiothoracic surgeon. Continue taking all medications as prescribed. Given your records are with [facility] and [facility] respectively, in the future if you have a choice of where you go in an emergent situation , could choose a [facility] or [facility] location to maintain continuity of care, however going to the closest possible ED is also understandable. Patient Language: Maltese Prescriptions: No Action atorvastatin 40 mg tablet 40 mg PO DAILY glimepiride 4 mg tablet 4 mg PO QAM Rx Instructions: administer with breakfast lisinopril 40 mg tablet 40 mg PO DAILY hydrochlorothiazide 25 mg tablet 25 mg PO DAILY Follow-up/Referrals: Felicia,DO Dandy [Primary Care Provider] - Stand Alone Forms: Work/School Release IP Time of Disposition: 11:26
[2024-07-27 07:57] LABS: Partial Thromboplastin Time 28.8 Seconds (22.3-36.8); Prothrombin Time 13.8 Seconds (11.1-14.7)
--- NOTE | 2024-07-27 09:08 | ECG_ITS ---
Test Date: 2024-07-27 09:14:34 Measurements Intervals Goode Rate: 76 P: 42 OK: 154 QRS: 34 QRSD: 77 T: 19 QT: 393 QTc: 442 Interpretive Statements SINUS RHYTHM POSSIBLE LEFT ATRIAL ENLARGEMENT LOW QRS VOLTAGE IN PRECORDIAL LEADS MINIMAL Q WAVES- INFERIOR LEADS BASELINE ARTIFACT- I, III BORDERLINE ECG Compared to ECG 07/27/2024 06:23:14 No significant changes Electronically Signed On 07-27-2024 09:33:30 CDT by Zoltan Andrews D.O.
[2024-07-27 09:50] LABS: Troponin I < 0.012 ng/mL (0.000-0.034)
== END 2024-07-27 11:44 | disposition home or self-care (01) ==
PROVIDERS: Preventive Medicine Aerospace Medicine; Emergency Provider Student in an Organized Health Care Education/Training Program; PCP Student in an Organized Health Care Education/Training Program
DX: R07.9 Chest pain, unspecified (principal); D64.9 Anemia, unspecified; E11.65 Type 2 diabetes mellitus with hyperglycemia; I12.9 Hypertensive chronic kidney disease with stage 1 through stage 4 chronic kidney disease, or unspecified chronic kidney disease; N18.9 Chronic kidney disease, unspecified; K44.9 Diaphragmatic hernia without obstruction or gangrene; J90 Pleural effusion, not elsewhere classified; E78.5 Hyperlipidemia, unspecified
CPT/HCPCS: 36415; 71046; 71275; 74174; 80053; 83690; 84484; 85025; 85610; 85730; 93005; 99284; Q9967

== ENCOUNTER 2025-01-24 10:00 | Outpatient (RCR) | payer MEDICARE, MEDICAID, SELFPAY | END 2025-01-26 10:29 | disposition home or self-care (01) | LOC: ANHCPREHAB 10:00 | PROVIDERS: PCP Student in an Organized Health Care Education/Training Program; Visit Provider Internal Medicine Cardiovascular Disease | DX: Z95.5 Presence of coronary angioplasty implant and graft (principal); Z95.1 Presence of aortocoronary bypass graft | CPT/HCPCS: 93798 ==

== ENCOUNTER 2025-02-03 12:51 | Emergency (ER) | payer MEDICARE, MEDICAID, SELFPAY ==
--- NOTE | ~2025-02-03 | CT_ITS ---
EXAMINATION: CT facial & cervical spine wo COMPARISON: None HISTORY: FALL, HEAD INJURY ON THINNERS TECHNIQUE: Axial images were obtained without IV contrast. Sagittal, coronal reconstruction images were obtained from the axial views. CT scan performed using dose optimization techniques including the following automated exposure control; adjustment of mA and/or kV; use of iterative reconstruction technique. Automatic exposure control was used to reduce radiation dose. Permanent radiation dose record is archived to PACS. FINDINGS: CT facial bones: The nasal bones are intact. The anterior maxillary sinus sarmiento, zygomatic arches and temporomandibular joints are intact. Orbital floors and medial orbits are intact. There is no retrobulbar hemorrhage identified. Minimal right-sided preseptal soft tissue swelling. The remaining soft tissues appear unremarkable CT cervical spine: Soft tissues are unremarkable. The lung apices are unremarkable. Grade 1 anterolisthesis of C3 on C4 and C4 on C5, no fracture. 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 No acute fracture is identified. Reviewed, dictated and finalized at location P.
--- NOTE | ~2025-02-03 | CT_ITS ---
EXAMINATION: CT brain wo rdoerick, 02/03/2025 13:05 CDT HISTORY: FALL, HEAD INJURY, ON THINNERS COMPARISON: No comparisons available. Technique: Axial images obtained of the brain without contrast. One or more of the following dose reduction techniques were used: automated exposure control, adjustment of the mA and/or kV according to patient size, use of iterative reconstruction technique. Findings: No acute infarct or parenchymal hemorrhage. No abnormal mass or mass effect. No midline shift. No extra-axial fluid collections. No hydrocephalus. Mastoid air cells unremarkable. Sinuses and orbits unremarkable. No acute fracture. No significant facial or scalp soft tissue swelling evident. No radiopaque foreign body is seen. Impression: 1.No acute intracranial abnormality. Reviewed, dictated and finalized at location P. Impression: 1.No acute intracranial abnormality.
[2025-02-03 13:14] VITALS: BP 176/93; PULSE 84; RESP 16; TEMP 36.5; O2SAT 100
--- OUTSIDE RECORDS SUMMARY | 2025-02-03 14:27 | XMS_ITS | Clinical Summary ---
Author Organization [facility] Address [address] [place] [address] Care Team Providers Care Tube Machine Operator Name Role Phone Dandy Duarte DO Primary Care Provide r Fredi Giordano MD, Pedrito Stroud Unavailable [phone] Raad Zimmer MD Unavailable [phone] Unknown, Notinfile Unavailable Unavailable Allergies Active Allergy Reactions Criticality Noted Date Comments Latex Itching Low 09/25/2023 Poison Viv Extract Blisters,Hives,Rash, Other (See comments) High 09/25/2023 Simvastatin Other (See comments) 10/09/2022 Cramps. Medications aspirin 81 mg enteric coated tablet Take 1 tablet (81 mg total) by mouth every morning Active atorvastatin (LIPITOR) 80 mg tablet Take 1 tablet (80 mg total) by mouth daily after lunch Active calcium carbonate-vit D3-min 600 mg-10 mcg (400 unit) tablet Take 1 tablet by mouth every morning Active ezetimibe (ZETIA) 10 mg tablet Take 1 tablet (10 mg total) by mouth daily after lunch Active fluticasone propionate (FLONASE) 50 mcg/actuation nasal spray Administer 1 spray into each nostril as needed for rhinitis or allergies Active glipiZIDE XL (GLUCOTROL XL) 10 mg 24 hr tablet Take 1 tablet (10 mg total) by mouth daily after lunch Active metoprolol XL (TOPROL-XL) 25 mg extended release tablet Take 1 tablet (25 mg total) by mouth every morning Active metFORMIN (FORTAMET) 500 mg 24 hr tablet Take 3 tablets (1,500 mg total) by mouth daily after lunch Active multivit,Ca,iro n-LL-lyhlom-lut [id number] dn-luz-lmg-mcg tablet Take 1 tablet by mouth every morning Active albuterol HFA (PROVENTIL HFA,VENTOLIN HFA,PROAIR HFA) 90 mcg/actuation inhaler Inhale 2 puffs every 6 (six) hours as needed for wheezing or shortness of breath for wheezing Active OneTouch Ultra Test strip USE TO TEST BLOOD SUGAR ONCE DAILY BEFORE BREAKFAST 5 Active OneTouch Ultra2 Meter misc USE TO TEST BLOOD SUGAR EVERY MORNING 5 Active cetirizine (ZyrTEC) 10 mg tablet Take 1 tablet (10 mg total) by mouth every morning Active doxylamine (UNISOM) 25 mg tablet Take 1 tablet (25 mg total) by mouth nightly Active acetaminophen 500 mg capsule Take 2 capsules (1,000 mg total) by mouth every 6 (six) hours as needed for pain 5 Active clopidogreL (PLAVIX) 75 mg tablet Take 1 tablet (75 mg total) by mouth daily 30 tablet 1 5 09/16/19 26 Active polyethylene glycol (MIRALAX) 17 gram packetIndicatio ns:constipation Take 1 packet (17 g total) by mouth daily as needed for constipation 5 Active Active Problems Problem Noted Date Diagnosed Date Thrombocytopenia 09/12/2024 Assessment & Plan (09/14/2024 9:15 AM CDT): Postop thrombocytopenia HIT negative Plts stable Assessment & Plan (09/12/2024 10:22 AM CDT): Plts 87 from 99, on admission was 186 Monitor daily CBC Sent Hit Panel Mitral valve stenosis and regurgitation 09/11/19 25 Severe mitral regurgitation 08/02/2024 Assessment & Plan (09/14/2024 9:19 AM CDT): S/p Bio MVR 09/10 Continue ASA Tubes/wires/oneil out PT/OT Postop TTE as outpatient Assessment & Plan (09/12/2024 10:18 AM CDT): S/p Bio MVR Plan to DC chest tubes, DC wires Keep Oneil today Fluid bolus given overnight, low urine output/bump in Cr PT/OT Aggressive pulmonary toilet Severe mitral valve stenosis 07/07/2024 2-vessel coronary artery disease 07/07/2024 Assessment & Plan (09/14/2024 9:14 AM CDT): S/P CABG x1 09/10 Continue aspirin, statin, metoprolol, plavix Tubes, wires, oneil out PT/OT Assessment & Plan (09/12/2024 10:20 AM CDT): S/P CABG x1 Continue aspirin, statin, metoprolol, and plavix dosing PT/OT Aggressive pulmonary toilet Plan to DC Cts, DC wires, Keep oneil for I&O with low urine output overnight Dyspnea on exertion 06/11/2024 Stage 3a chronic kidney disease (CKD) 06/06/2022 Assessment & Plan (09/14/2024 9:12 AM CDT): HELLEN on CKD Cr on admission as 1.2 S/p IV fluids Creatinine stable Assessment & Plan (09/12/2024 10:20 AM CDT): HELLEN on CKD Cr on admission as 1.2 Cr today up to 1.8- received a fluid bolus overnight Strict I&O-keep oneil today Hyperlipidemia 09/26/2016 Assessment & Plan (09/12/2024 10:41 AM CDT): Continue statin therapy Diabetes mellitus 08/12/2016 Assessment & Plan (09/14/2024 9:11 AM CDT): A1C 6.7 POC 134-160 over the past 24 hours Continue to monitor POC and adjust SSI for glycemic control Assessment & Plan (09/12/2024 11:02 AM CDT): A1C 6.7 POC 134-160 over the past 24 hours Continue to monitor POC and adjust SSI for glycemic control Hypertension associated with type 2 diabetes wesley farris 06/26/2016 Assessment & Plan (09/12/2024 10:39 AM CDT): Monitor Q4 hour vitals and adjust medications as needed for blood pressure control Continue metoprolol 6.25mg BID and titrate as tolerated Medical History Medical History Date Comments HTN (hypertension) HLD (hyperlipidemia) Hepatitis C DM (diabetes mellitus), type 2 CKD (chronic kidney disease) stage 3, GFR 30-59 ml/min ([facility]) Creat 1.3-1.7 w/ GFR 31-41 CAD (coronary artery disease) Mitral stenosis Anemia Family History Medical History Relation Name Comments Heart disease Brother Heart disease Father No Known Problems Mother Heart disease Sister Anesthesia problems Neg Hx Malig Hypertension Neg Hx Malig Hyperthermia Neg Hx Pseudochol deficiency Neg Hx Relation Name Status Comments Brother Father Mother Sister Alive Social History Tobacco Use Types Packs/Day Years Used Date Smoking Tobacco: Former Cigarettes 1.5 52.8 1 972 - 02/2024 Passive Smoke Exposure: Past Smokeless Tobacco: Never Tobacco Cessation:Counseling Given: Not Answered Comments:Quit smoking 4 months ago AUDIT-C Answer Date Recorded Q1: How often do you have a drink containing alc ohol? Monthly or less 08/12/2024 Q2: How many drinks containi ng alcohol do you have on a typical day when you are drinking? 1 or 2 08/12/2024 Q3: How often do you have si x or more drinks on one occasion? Never 08/12/2024 Personal Safety Answer Date Recorded Have you ever been in or are you currently in a harmful physical or emotional relationship or is someone making you feel afraid or unsafe? Denies 09/13/2024 Comments Unknown Sex and Gender Information Value Date Recorded Sex Assigned at Not on file Legal Sex Female 3:40 PM CDT Gender Identity Not on file Sexual Orientation Not on file Obstetrics History Last Filed Vital Signs Vital Sign Reading Time Taken Comments Blood Pressure 88/62 10/11/2024 9:54 AM CDT Pulse 100 10/11/2024 9:54 AM CDT Temperature 36.6 C (97.9 F) 09/15/2024 11:11 AM CDT Respiratory Rate 20 09/15/2024 11:11 AM CDT Oxygen Saturation 99% 10/11/2024 9:54 AM CDT Inhaled Oxygen Concentration - - Weight 80.9 kg (178 lb 6.4 oz) 10/11/2024 9:54 A M CDT Height 160 cm (5' 3) 10/11/2024 9:54 AM CDT Body Mass Index 31.6 10/11/2024 9:54 AM CDT Plan of Treatment Health Maintenance Due Date Last Done Comments Albumin Creatinine Ratio, Urine 1954 Breast Cancer Screening-Mammogram 1954 Colon Cancer Screening-Colonoscopy 1954 Depression Screening 1954 Hepatitis C Screening 1954 Osteoporosis Screening-Bone Density Scan 1954 Dilated Eye Exam 1954 Foot Exam 1954 Hepatitis B Screening 1972 Lung Cancer Screening 2004 Well Visit 65+ 12/07/2019 DTaP/Tdap/Td Vaccine (2 - Td or Tdap) 06/28/2024 06/28/2014 Covid-19 Vaccine (2023-2 5 season) 2024 12/23/2023, 12/21/2022, 03/29/2021, Additional history exists Influenza Vaccine (#1) 2024 , 12/21/2022, 02/15/2022, Additional history exists Hemoglobin A1C 02/11/2025 08/12/2024 Lipid Panel 09/10/2025 09/10/2024, 02/25/2024 eGFR 09/14/2025 09/14/2024, 08/20, 09/13/2024, Additional history exists Fall Risk Assessment 09/15/2025 09/15/2024 Zoster Vaccine Completed 01/22/2021, 11/01/2020 Pneumococcal vaccine 65+ Completed 12/28/2021, 11/19 Medical Devices Implanted Type Area Health Information Administrator Device Identifier Shelf Expiration Date Model / Serial / Lot [employer] Valve Mitral Tissue Stented Epic Plus 25mm [id number] - [id number] - [id number] Implanted:Qty: 1 on 09/10/2024 by Raad Zimmer MD at [facility] [id number] 11/30/2027 [id number] / [id number] / Procedures Procedure Name Priority Date/Time Associated Diagnosis Comments EGFR Routine 09/14/2024 8:40 PM CDT LIPID PANEL STAT 09/10/2024 1:41 PM CDT POCT HEMOGLOBIN A1C Routine 08/12/2024 9 :30 AM CDT from Last 3 Months or Most Recently Relevant to Health Maintenance Results * (ABNORMAL) eGFR (09/14/2024 8:40 PM CDT) eGFR 42(L) >=60 mL/min/1. 73 m2 Comment: Interpretive Data Reference Interval Normal >/= 90 mL/min/1.73m2 Mildly decreased* 60 - 89 mL/min/1.73m2 Mildly to moderately decreased 45 - 59 mL/min/1.73m2 Moderately to severely decreased 30 - 44 mL/min/1.73m2 Severely decreased 15 - 29 mL/min/1.73m2 Kidney Failure < 15 mL/min/1.73m2 *Relative to young adult level Estimated glomerular filtration rate is determined by the 2020 CKD-EPI equation recommended by the National Kidney Foundation (A Unifying Approach to GFR Estimation: Recommendations of the NKF-ASK Task Force on Reassessing the Inclusion of Race in Diagnosing Kidney Disease, JASN 2020). The CKD-EPI equation should not be used for patients with unstable renal function and has not been validated in children and those over 70. Current interpretive data was last reviewed 2021. Blood 09/14/2024 8:40 PM CDT 09/14/2024 9:24 PM CDT us Angeles Wong NP LAB BLOOD ORDERABLES Final Result [facility] Department [place] [address] * (ABNORMAL) Lipid panel (09/10/2024 1:41 PM CDT) Cholesterol 68 30 - 199 mg/dL Comment: Interpretive Data Ages < or = 19 years Acceptable: <170 mg/dL Borderline high: 170-199 mg/dL High: >or= 200 mg/dL Ages > or = 20 years Desirable: <200 mg/dL Borderline high: 200-239 mg/dL High: >or= 240 mg/dL Literature References: 1. Expert Panel on Integrated Guidelines for Cardiovascular Health and Risk Reduction in Children and Adolescents. Pediatrics 2011;128:S213 2. NCEP Expert Panel. Circulation 2004;110:227 Current Interpretive Data was last revised on 2017. Triglycerides 87 <=149 mg/dL [facility] Comment: Interpretive Data Ages < or = 9 years Acceptable: <75 mg/dL Borderline high: 75-99 mg/dL High: >or= 100 mg/dL Ages 10 to 20 years Acceptable: <90 mg/dL Borderline high: 90-129 mg/dL High: >or= 130 mg/dL Ages > or = 20 years Desirable: <150 mg/dL Borderline high: 150-199 mg/dL High: 200-499 mg/dL Very high: >or= 499 mg/dL Literature References: 1. Expert Panel on Integrated Guidelines for Cardiovascular Health and Risk Reduction in Children and Adolescents. Pediatrics 2011;128:S213 2. NCEP Expert Panel. Circulation 2004;110:227 Current Interpretive Data was last revised on 2017. HDL 24(L) >=40 mg/dL [facility] Comment: Interpretive Data Ages < or = 19 years Acceptable: >45 mg/dL Borderline low: 40-45 mg/dL Low: <40 mg/dL Ages > or = 20 years Desirable: >or= 60 mg/dL Low: <40 mg/dL Literature References: 1. Expert Panel on Integrated Guidelines for Cardiovascular Health and Risk Reduction in Children and Adolescents. Pediatrics 2011;128:S213 2. NCEP Expert Panel. Circulation 2004;110:227 Current Interpretive Data was last revised on 2017. LDL, calculated 26 <=129 mg/dL [facility] Comment: Interpretive Data Ages < or = 19 years Acceptable: <110 mg/dL Borderline high: 110-129 mg/dL High: >or= 130 mg/dL Ages > or = 20 years Optimal: <100 mg/dL Near optimal: 100-129 mg/dL Borderline high: 130-159 mg/dL High: >160 mg/dL Calculated using the Efren LDL-C estimating equation. This equation was implemented on 2023. Prior to this date LDL-C was estimated using the Friedewald equation. Literature References: 1. Expert Panel on Integrated Guidelines for Cardiovascular Health and Risk Reduction in Children and Adolescents. Pediatrics 2011;128:S213 2. NCEP Expert Panel. Circulation 2004;110:227 3. Efren Humphrey et al. KEITH Cardiol. 2020 August 19;5(5):540-548. doi: 10.1001/jamacardio.2020.0013 Current Interpretive Data was last revised on 2023. Non-HDL Cholesterol 44 mg/dL [facility] Comment: Interpretive Data Ages < or = 19 years Acceptable: <120 mg/dL Borderline high: 120-144 mg/dL High: >145 mg/dL Ages > or = 20 years When triglycerides are >200 mg/dL, Non-HDL cholesterol is a secondary target of therapy with treatment goals that are 30 mg/dL greater than the LDL cholesterol target. Literature References: 1. Expert Panel on Integrated Guidelines for Cardiovascular Health and Risk Reduction in Children and Adolescents. Pediatrics 2011;128:S213 2. NCEP Expert Panel. Circulation 2004;110:227 Current Interpretive Data was last revised on 2017. Chol/HDL ratio 3 [facility] Blood 09/10/2024 1:41 PM CDT 09/10/2024 2:11 PM CDT us Raad Zimmer MD LAB BLOOD ORDERABLES Final Re sult [facility] Department [place] [address] * (ABNORMAL) POCT hemoglobin A1c (08/12/2024 9:30 AM CDT) Hgb A1C, POC 6.7(H) 4.0 - 5.6 % Est Average Gluc POC 146 mg/dL [facility] Comment: The ADA recommends reporting an estimated Average Glucose (eAG) with all Hemoglobin A1c results using the equation derived from a study of 507 normal and diabetic adults. Minority populations were underrepresented and children were not included. (Diabetes Care 31:7943-6126, 2008). The eAG is not equivalent to a fasting glucose. Blood 08/12/2024 9:30 AM CDT 08/12/2024 9:30 AM CDT us Raad Zimmer MD POINT OF CARE TEST ORDERABLES Final Result [facility] Department [place] [address] from Last 3 Months or Most Recently Relevant to Health Maintenance Insurance Advance Directives For more information, please contact: [phone] * Full Code (Latest Code Status on File) Date Activated Date Inactivated Comments 09/10/2024 1:45 PM 09/15/2024 4:19 PM Care Teams Tube Machine Operator Relationship Specialty Start Date End Date Dandy Duarte DO [address] [place] [id number] PCP - General Family Medicine 07/02/24 Pedrito Rai Jr., MD [address] [phone] Referring Physician Cardiology 07/07/24 Raad Zimmer MD [id number] [place] [address] Cardiothoracic Surgery 09/15/24 Unknown, Notinfile 09/15/24
--- NOTE | 2025-02-03 15:05 | ED.HEATRA ---
HPI - Head Injury General Chief complaint: Head Injury Stated complaint: TRIP AND FALL, HEAD INJURY ON THINNERS Time Seen by Provider: 02/03/25 15:05 Focused HPI: This is a 69 year old female that presents to the ER after a fall. Reports she tripped over the jono litter box and fell and hit her head on the garage floor. This happened this morning. She takes clopidogrel. Denies vision changes, vomiting, numbness, weakness. GENERAL: Well-appearing, well-nourished, and in no acute distress. HEAD: Normocephalic. Abrasions to the left side of the face CHEST: Clear to auscultation. ?No respiratory distress. HEART: Regular rate and rhythm.? NEURO: ?Alert and oriented x3. Patient screened in triage and initial orders placed.? ?Additional care and disposition to be based upon?diagnostic testing and treatment. Related Data Home Medications ?Medication ?Instructions ?Recorded ?Confirmed ?Last Taken ?Type atorvastatin 40 mg tablet 40 mg PO DAILY 01/07/23 Unknown History glimepiride 4 mg tablet 4 mg PO QAM 01/07/23 Unknown History hydrochlorothiazide 25 mg tablet 25 mg PO DAILY 01/07/23 Unknown History lisinopril 40 mg tablet 40 mg PO DAILY 01/07/23 Unknown History Allergies Allergy/AdvReac Type Severity Reaction Status Date / Time simvastatin Allergy Unknown Cramping Verified 02/03/25 12:52 of the Muscles Review of Systems Review of Systems: All systems reviewed & are unremarkable except as noted in HPI and below PMFSH Past Medical History Medical History Mitral valve insufficiency Blockage of coronary artery of heart Obesity Non-insulin dependent diabetes mellitus Hyperlipidemia Hypertension Surgical History Surgical History No pertinent past surgical history Family History Family History (Updated 12/17/24 @ 08:42 by Jovanna Quintanilla RN) Father Family history of diabetes mellitus in first degree relative Hypertension Acute myocardial infarction Mother Patient's mother is in good health Cerebrovascular accident Sibling Patient's brother is in good health Patient's sister is in good health Acute myocardial infarction Cerebrovascular accident Hypertension Family history of diabetes mellitus in first degree relative Sibling Hypertension Social History Social History Smoking packs per day: 1 Smoking cigarettes per day: 20.0 Years smoked: 40 Smoking pack-years: 40.00 Smoking status: Former smoker Tobacco type: cigarettes Additional smoking assessment comments: previous per EMR Alcohol intake: current Substance use: never Substance use type: does not use Lack of Transportation: No Lack of Food: Never True Current Housing: I Have Housing Concerned About Future Housing: No Difficulty Paying Gas/Electric Bills: No Difficulty Paying for Meds: No Currently Unemployed: No Education: High School Diploma/GED Difficulty w/ Childcare or Family Care: No Exam Const: General: healthy appearing, no acute distress and alert Nutritional Appearance: well nourished Orientation/consciousness: patient oriented x3 HENMT: Head: laceration (abrasions to the left side of the face) Eyes: Pupils: Equal, round and reactive pupils present EOM: EOMs intact bilaterally Resp: Effort & Inspection: normal respiratory effort Auscultation: clear to auscultation bilaterally Cardio: Rate: regular rate Rhythm: regular rhythm Skin: General skin exam: normal color Rashes: no rashes Neuro: General: patient oriented x3 Cranial nerves: Yes CN's II-XII intact bilaterally Speech: normal speech Gait exam (Neuro): Normal gait present Psych: Mental Status: mental status grossly normal Course Vital Signs Vital signs: Vital Signs Temperature 97.7 F 02/03/25 13:14 Pulse Rate 84 02/03/25 13:14 Respiratory Rate 16 02/03/25 13:14 Blood Pressure 176/93 H 02/03/25 13:14 Pulse Oximetry 100 02/03/25 13:14 Oxygen Delivery Room Air 02/03/25 13:14 Temperature 97.7 F 02/03/25 13:14 Pulse Rate 84 02/03/25 13:14 Respiratory Rate 16 02/03/25 13:14 Blood Pressure 176/93 H 02/03/25 13:14 Pulse Oximetry 100 02/03/25 13:14 Oxygen Delivery Room Air 02/03/25 13:14 MDM - Head Injury MDM Narrative Medical decision making narrative: Patient presents to the ER after a head injury today. She is neurologically intact. CT brain, cervical spine, facial bones without acute findings. Patient updated on her workup and agrees with plan of care. She is to follow up with PCP. She was given warnings to return to the ER Differential Diagnosis Differential diagnosis: Likely concussion without loss of consciousness, closed head injury and subdural hematoma Imaging Data Radiologist's impression: ITS Impressions Head CT 02/03/25 13:19 Impression: 1.No acute intracranial abnormality. Head/Cervical Spine/Facial Bones CT 02/03/25 13:59 IMPRESSION: 1. No acute fracture is identified. Critical Care Time Critical Care Time Critical Care Time: No Discharge Plan Discharge Clinical Impression: Closed head injury Qualifiers: Encounter type: initial encounter Qualified Code(s): S09.90XA - Unspecified injury of head, initial encounter Patient Disposition: Home Condition: Stable Instructions: Head Injury (ED) Additional Instructions: Return to the ER if you experience vision changes, vomiting, numbness, weakness, or any other symptoms that are concerning to you Rest. Ice to the area. Over the counter pain medication as needed Follow up with your primary doctor Patient Language: Bolivian Prescriptions: No Action atorvastatin 40 mg tablet 40 mg PO DAILY glimepiride 4 mg tablet 4 mg PO QAM Rx Instructions: administer with breakfast lisinopril 40 mg tablet 40 mg PO DAILY hydrochlorothiazide 25 mg tablet 25 mg PO DAILY Follow-up/Referrals: Felicia,DO Dandy [Primary Care Provider]
--- OUTSIDE RECORDS SUMMARY | 2025-02-03 17:21 | XMS_ITS | Encounter Summary ---
Author Organization [facility] Address [facility] [place] [address] Care Team Providers Care Registrar Museum Name Role Phone Dandy Duarte DO Primary Care Provider + Encounter Details Date Type Department Care Team (Late st Contact Info) Description 12/28/2024 MyChart Message Enc [facility] Family & Internal Medicine [place] [id number] [place] [phone] Dandy Duarte DO [address] [place] [id number] No farxigia Social History Tobacco Use Types Packs/Day Years Used Date Smoking Tobacco: Former Cigarettes 1 25 Q uit: 03/21/2024 Passive Smoke Exposure: Current Smokeless Tobacco: Never Comments:Provider to recreation counselor Alcohol Use Standard Drinks/Week Comments Not Currently 0 (1 standard drink = 0.6 oz pur e alcohol) PHQ-2 Answer Date Recorded Patient Health Questionnaire-2 Score 0 05/19/2024 Comments No Sex and Gender Information Value Date Recorded Sex Assigned at Female 05/05/2024 12:32 PM [employer]PER[employer] Legal Sex Female 10:17 AM [employer] Gender Identity Female 12/25/2021 9:32 AM CDT Sexual Orientation Not on file documented as of this encounter Progress Notes * Dandy Duarte DO - 12/29/2024 8:05 AM CDT Noted. documented in this encounter Plan of Treatment Upcoming Encounters Date Type Department Care Team (Late st Contact Info) Description 02/04/2025 2:15 PM CDT Office Visit [facility] [phone] Pedrito Rai MD 3 [facility] [address] [facility] [place] [phone] 03/21/2025 9:40 AM [employer] Office Visit [facility] Family & Internal Medicine - [address] [phone] Dandy Duarte DO [address] [place] [id number] documented as of this encounter Visit Diagnoses Not on filedocumented in this encounter Additional Health Concerns Assessment Noted Time PHQ-9 Depression Total Score: 0 05/02/19 21 10:38 AM [employer] documented as of this encounter Care Teams Registrar Museum Relationship Specialty Start Date End Date Dandy Duarte DO [address] [place] [id number] PCP - General FAMILY PRACTICE 06/06/22 documented as of this encounter
--- OUTSIDE RECORDS SUMMARY | 2025-02-03 17:21 | XMS_ITS | Encounter Summary ---
Author Organization [facility] Address [facility] [place] [address] Care Team Providers Care Instructional Manager Name Role Phone Dandy Duarte DO Primary Care Provider + Encounter Details Date Type Department Care Team (Late Contact Info) Description 01/07/2024 MyChart Message Enc [facility] Family & Internal Medicine [address] [phone] Dandy Duarte DO [facility] [place] [address] [address] lung screening Social History Tobacco Use Types Packs/Day Years Used Date Smoking Tobacco: Some Days Cigarettes 1 25 Passive Smoke Exposure: Current Smokeless Tobacco: Never Comments:Provider to funeral planning counselor Alcohol Use Standard Drinks/Week Comments Not Currently 0 (1 standard drink = 0.6 oz pur e alcohol) PHQ-2 Answer Date Recorded Patient Health Questionnaire-2 Score 0 11/13/2023 Comments No Sex and Gender Information Value Date Recorded Sex Assigned at Female 05/05/2024 12:32 PM CONDENSER TESTER Legal Sex Female 10:17 AM CONDENSER TESTER Gender Identity Female 12/25/2021 9:32 AM CDT Sexual Orientation Not on file documented as of this encounter Plan of Treatment Upcoming Encounters Date Type Department Care Team (Late Contact Info) Description 02/04/2025 2:15 PM CDT Office Visit [facility] [phone] Pedrito Rai MD [address] [facility] [address] [place] [phone] 03/21/2025 9:40 AM CONDENSER TESTER Office Visit [facility] Family & Internal Medicine - [address] [phone] Dandy Duarte DO [address] [place] [address] documented as of this encounter Visit Diagnoses Not on filedocumented in this encounter Additional Health Concerns Assessment Noted Time PHQ-9 Depression Total Score: 0 05/02/19 21 10:38 AM CONDENSER TESTER documented as of this encounter Care Teams Instructional Manager Relationship Specialty Start Date End Date Dandy Duarte DO [address] [place] [address] PCP - General FAMILY PRACTICE 06/06/22 documented as of this encounter
--- OUTSIDE RECORDS SUMMARY | 2025-02-03 17:21 | XMS_ITS | Encounter Summary ---
Author Organization [facility] Address [facility] [place] [address] Care Team Providers Care Certified Caregiver Name Role Phone Dandy Duarte DO Primary Care Provider + Encounter Details Date Type Department Care Team (Late Contact Info) Description 02/12/2024 MyChart Message Enc [facility] Family & Internal Medicine - [address] [phone] Dandy Duarte DO [address] [place] [address] Lab work Social History Tobacco Use Types Packs/Day Years Used Date Smoking Tobacco: Some Days Cigarettes 1 25 Passive Smoke Exposure: Current Smokeless Tobacco: Never Comments:Provider to classification counselor Alcohol Use Standard Drinks/Week Comments Not Currently 0 (1 standard drink = 0.6 oz pur e alcohol) PHQ-2 Answer Date Recorded Patient Health Questionnaire-2 Score 0 11/13/2023 Comments No Sex and Gender Information Value Date Recorded Sex Assigned at Female 05/05/2024 12:32 PM COIL WINDER HAND Legal Sex Female 10:17 AM COIL WINDER HAND Gender Identity Female 12/25/2021 9:32 AM CDT Sexual Orientation Not on file documented as of this encounter Plan of Treatment Upcoming Encounters Date Type Department Care Team (Late Contact Info) Description 02/04/2025 2:15 PM CDT Office Visit [facility] [place] [address] Pedrito Rai MD 3 [facility] [address] [place] [phone] 03/21/2025 9:40 AM COIL WINDER HAND Office Visit [facility] Family & Internal Medicine - [place] [address] [place] [address] Dandy Duarte DO [address] [place] [address] documented as of this encounter Visit Diagnoses Not on filedocumented in this encounter Additional Health Concerns Assessment Noted Time PHQ-9 Depression Total Score: 0 05/02/19 21 10:38 AM COIL WINDER HAND documented as of this encounter Care Teams Certified Caregiver Relationship Specialty Start Date End Date Dandy Duarte DO [address] [place] [address] PCP - General FAMILY PRACTICE 06/06/22 documented as of this encounter
--- OUTSIDE RECORDS SUMMARY | 2025-02-03 17:21 | XMS_ITS | Encounter Summary ---
Author Organization [facility] Address formerly [facility]6 [place] [address] Care Team Providers Care Purchasing Administrative Assistant Name Role Phone Dandy Duarte DO Primary Care Provider + Encounter Details Date Type Department Care Team (Late Contact Info) Description 12/15/2024 Results Follow-Up [facility] Family & Internal Medicine [address] [phone] Dandy Duarte DO [address] [place] [address] HEMOGLOBIN, GLYCOSYLATED, TSH W/REFLEX, ALBUMIN URINE RANDOM W/CREATININE, Additional followed-up results: 2 Social History Tobacco Use Types Packs/Day Years Used Date Smoking Tobacco: Former Cigarettes 1 25 Q uit: 03/21/2024 Passive Smoke Exposure: Current Smokeless Tobacco: Never Comments:Provider to prenatal genetic counselor Alcohol Use Standard Drinks/Week Comments Not Currently 0 (1 standard drink = 0.6 oz pur e alcohol) PHQ-2 Answer Date Recorded Patient Health Questionnaire-2 Score 0 05/19/2024 Comments No Sex and Gender Information Value Date Recorded Sex Assigned at Female 05/05/2024 12:32 PM INSPECTOR FINAL ASSEMBLY ELECTRICAL Legal Sex Female 10:17 AM INSPECTOR FINAL ASSEMBLY ELECTRICAL Gender Identity Female 12/25/2021 9:32 AM CDT Sexual Orientation Not on file documented as of this encounter Plan of Treatment Upcoming Encounters Date Type Department Care Team (Late st Contact Info) Description 02/04/2025 2:15 PM CDT Office Visit [facility]-[address] [phone] Pedrito Rai MD 3 [facility] [address] [place] [phone] 03/21/2025 9:40 AM INSPECTOR FINAL ASSEMBLY ELECTRICAL Office Visit [facility] Family & Internal Medicine - [address] [phone] Dandy Duarte DO [address] [place] [address] documented as of this encounter Visit Diagnoses Not on filedocumented in this encounter Additional Health Concerns Assessment Noted Time PHQ-9 Depression Total Score: 0 05/02/19 21 10:38 AM INSPECTOR FINAL ASSEMBLY ELECTRICAL documented as of this encounter Care Teams Purchasing Administrative Assistant Relationship Specialty Start Date End Date Dandy Duarte DO [address] [place] [address] PCP - General FAMILY PRACTICE 06/06/22 documented as of this encounter
--- OUTSIDE RECORDS SUMMARY | 2025-02-03 17:21 | XMS_ITS | Encounter Summary ---
Author Organization [facility] Address [facility]6 [place] [address] Care Team Providers Care Rn Radiology Name Role Phone Dandy Duarte Primary Care Provider + Encounter Details Date Type Department Care Team (Latest Contact Info) Description 02/03/2025 Travel Social History Tobacco Use Types Packs/Day Years Used Date Smoking Tobacco: Former Cigarettes 1 25 Q uit: 03/21/2024 Passive Smoke Exposure: Current Smokeless Tobacco: Never Comments:Provider to family and marriage counsellor Alcohol Use Standard Drinks/Week Comments Not Currently 0 (1 standard drink = 0.6 oz pur e alcohol) PHQ-2 Answer Date Recorded Patient Health Questionnaire-2 Score 0 05/19/2024 Comments No Sex and Gender Information Value Date Recorded Sex Assigned at Female 05/05/2024 12:32 PM TURRET LATHE TENDER Legal Sex Female 10:17 AM TURRET LATHE TENDER Gender Identity Female 12/25/2021 9:32 AM CDT Sexual Orientation Not on file documented as of this encounter Plan of Treatment Upcoming Encounters Date Type Department Care Team (Late st Contact Info) Description 02/04/2025 2:15 PM CDT Office Visit [facility] [phone] Pedrito Rai MD [address] [place] [phone] 03/21/2025 9:40 AM TURRET LATHE TENDER Office Visit [facility] Family & Internal Medicine - [address] [phone] Dandy Duarte DO [address] [place] [address] documented as of this encounter Visit Diagnoses Not on filedocumented in this encounter Additional Health Concerns Assessment Noted Time PHQ-9 Depression Total Score: 0 05/02/19 21 10:38 AM TURRET LATHE TENDER documented as of this encounter Care Teams Rn Radiology Relationship Specialty Start Date End Date Dandy Duarte DO [address] [place] [address] PCP - General FAMILY PRACTICE 06/06/22 documented as of this encounter
--- OUTSIDE RECORDS SUMMARY | 2025-02-03 17:21 | XMS_ITS | Encounter Summary ---
Author Organization [facility] Address [facility] [place] [address] Care Team Providers Care Electron Microscopist Name Role Phone Dandy Duarte DO Primary Care Provider + Encounter Details Date Type Department Care Team (Late st Contact Info) Description 09/23/2024 MyCNextwortht Message Enc [facility] Family & Internal Medicine [facility] [address] [place] [address] Dandy Duarte DO [facility]1 [place] [address] Pain relief medicine Social History Tobacco Use Types Packs/Day Years Used Date Smoking Tobacco: Former Cigarettes 1 25 Q uit: 03/21/2024 Passive Smoke Exposure: Current Smokeless Tobacco: Never Comments:Provider to school guidance counselor Alcohol Use Standard Drinks/Week Comments Not Currently 0 (1 standard drink = 0.6 oz pur e alcohol) PHQ-2 Answer Date Recorded Patient Health Questionnaire-2 Score 0 05/19/2024 Comments No Sex and Gender Information Value Date Recorded Sex Assigned at Female 05/05/2024 12:32 PM ONCOLOGY PHYSICIAN Legal Sex Female 10:17 AM ONCOLOGY PHYSICIAN Gender Identity Female 12/25/2021 9:32 AM CDT Sexual Orientation Not on file documented as of this encounter Progress Notes * Dandy Duarte DO - 09/24/2024 12:43 PM CDT Sent tramadol. documented in this encounter Plan of Treatment Upcoming Encounters Date Type Department Care Team (Late st Contact Info) Description 02/04/2025 2:15 PM CDT Office Visit [facility]-[address] [phone] Pedrito Rai MD 3 [facility] [address] [place] [phone] 03/21/2025 9:40 AM ONCOLOGY PHYSICIAN Office Visit [facility] Family & Internal Medicine - [address] [phone] Dandy Duarte DO [address] [place] [address] documented as of this encounter Visit Diagnoses Diagnosis S/P mitral valve replacement with bioprosthetic valve- Primary Heart valve replaced by other means Hyperlipidemia associated with type 2 diabetes mellitus ([facility])- Primary Hypertension associated with type 2 diabetes mellitus ([facility]) S/P mitral valve replacement Heart valve replaced by other means Severe mitral valve stenosis Mitral stenosis Stage 3a chronic kidney disease (CKD) ([facility]) documented in this encounter Additional Health Concerns Assessment Noted Time PHQ-9 Depression Total Score: 0 05/02/19 21 10:38 AM ONCOLOGY PHYSICIAN documented as of this encounter Care Teams Electron Microscopist Relationship Specialty Start Date End Date Dandy Duarte DO [address] [place] [address] PCP - General FAMILY PRACTICE 06/06/22 documented as of this encounter
--- OUTSIDE RECORDS SUMMARY | 2025-02-03 17:21 | XMS_ITS | Clinical Summary ---
Author Organization [facility] Address [address] [place] [address] Care Team Providers Care Medical Planner Name Role Phone Dandy Duarte DO Primary Care Provide r Fredi Giordano MD, Pedrito Stroud Unavailable [phone] Raad Zimmer MD Unavailable [phone] Unknown, Notinfile Unavailable Unavailable Allergies Active [...] by mouth daily after lunch Active multivit,Ca,iro q-AA-waheuv-lut [id number] pg-zbd-xxi-mcg tablet Take 1 tablet by mouth every [...] kidney disease) stage 3, GFR 30-59 ml/min ([facility]) Creat 1.3-1.7 w/ GFR 31-41 CAD (coronary [...] 12/28/2021, 11/19 Medical Devices Implanted Type Area Long Lines Operator Device Identifier Shelf Expiration Date Model / Serial / Lot [employer] Valve Mitral Tissue Stented Epic Plus 25mm [id number] - [id number] - [id number] Implanted:Qty: 1 on 09/10/2024 by Raad Zimmer MD at [facility] [id number] 11/30/2027 [id number] / [id number] / Procedures Procedure Name Priority Date/Time Associated [...] NP LAB BLOOD ORDERABLES Final Result [facility] Department [place] [address] * (ABNORMAL) Lipid panel (09/10/2024 [...] revised on 2017. Triglycerides 87 <=149 mg/dL [facility] Comment: Interpretive Data Ages < or = [...] revised on 2017. HDL 24(L) >=40 mg/dL [facility] Comment: Interpretive Data Ages < or = [...] 2017. LDL, calculated 26 <=129 mg/dL [facility] Comment: Interpretive Data Ages < or = [...] revised on 2023. Non-HDL Cholesterol 44 mg/dL [facility] Comment: Interpretive Data Ages < or = [...] last revised on 2017. Chol/HDL ratio 3 [facility] Blood 09/10/2024 1:41 PM CDT 09/10/2024 2:11 PM CDT us Raad Zimmer MD LAB BLOOD ORDERABLES Final Re sult [facility] Department [place] [address] * (ABNORMAL) POCT hemoglobin A1c (08/12/2024 [...] and children were not included. (Diabetes Care 31:6014-8392, 2008). The eAG is not equivalent to a fasting glucose. Blood 08/12/2024 9:30 AM CDT 08/12/2024 9:30 AM CDT us Raad Zimmer MD POINT OF CARE TEST ORDERABLES Final Result [facility] Department [place] [address] from Last 3 Months or Most Recently Relevant to Health Maintenance Insurance Advance Directives For more information, please contact: [phone] * Full Code (Latest Code Status on File) Date Activated Date Inactivated Comments 09/10/2024 1:45 PM 09/15/2024 4:19 PM Care Teams Medical Planner Relationship Specialty Start Date End Date Dandy Duarte DO [address] [place] [address] PCP - General Family Medicine 07/02/24 Pedrito Rai Jr., MD [address] [phone] Referring Physician Cardiology 07/07/24 Raad Zimmer MD [id number] [place] [address] Cardiothoracic Surgery 09/15/24 Unknown, Notinfile 09/15/24
--- OUTSIDE RECORDS SUMMARY | 2025-02-03 17:21 | XMS_ITS | Clinical Summary ---
Author Organization [facility] Address [address] [place] [address] Care Team Providers Care Outreach Manager Name Role Phone Meme Milan Primary Care Provider + Allergies Active Allergy Reactions Criticality Noted Date Comments Latex Itching Low 09/25/2023 Poison Viv Extract Contact Dermatitis,Hives,Rash High 09/25/2023 Simvastatin Other (see comment) 10/09/2022 Cramps. Medications Multiple Vitamins-Mineral s (MULTIVITAL OR) Take 1 tablet by mouth daily. Active calcium carb-cholecalcif tony 600-800 MG-UNIT tablet Take 1 tablet by mouth daily. Active albuterol sulfate HFA 108 (90 Base) MCG/ACT inhalerIndicatio ns:Nicotine dependence, cigarettes, uncomplicated INHALE 2 PUFFS BY MOUTH EVERY 6 HOURS NEEDED FOR WHEEZE 18 g 1 024 Active nitroglycerin (NITROSTAT) 0.[address] 1 tablet (0.4 mg total) under the tongue every 5 (five) minutes as needed for Chest Pain. Maximum of 3 doses. 90 tablet 3 025 2025 Active aspirin 81 MG chewable tablet Chew 1 tablet (81 mg total) by mouth daily. Active Blood Glucose Monitoring Suppl (ONE TOUCH ULTRA 2) w/Device KitIndications:T ype 2 diabetes mellitus without complication, without long-term current use of insulin ([facility]) 1 Device by Does not apply route every morning. 1 kit Active OneTouch Delica Lancets 33G MiscIndications: Type 2 diabetes mellitus without complication, without long-term current use of insulin ([facility]) 1 Device by Does not apply route every morning before breakfast. 100 each 3 Active Glucose Blood (BLOOD GLUCOSE TEST STRIPS) StripIndications :Type 2 diabetes mellitus without complication, without long-term current use of insulin ([facility]) 1 Device by Does not apply route daily with breakfast. 100 strip 3 Active fluticasone propionate (FLONASE) 50 MCG/ACT nasal sprayIndications :Allergic rhinitis, unspecified seasonality, unspecified trigger SPRAY 1 SPRAY BY NASAL ROUTE EVERY DAY 16 mL 1 Active Acetaminophen 500 MG Cap Take 1,000 mg by mouth. Active Docusate Sodium (DSS) 100 MG Cap Take 100 mg by mouth. Active polyethylene glycol (GLYCOLAX) packet Take 240 mLs (17 g total) by mouth. Active traMADol (ULTRAM) 50 MG tabletIndication s:Acute Pain < 7 Day Supply Take 1 tablet (50 mg total) by mouth every 6 (six) hours as needed for Pain. Indications: Acute Pain < 7 Day Supply 28 tablet Active Additional Information Patient not taking.Reason: patient has some, not currently taking, Reported on 12/15/2024 Carbonyl Iron 45 MG Tab daily. Active clopidogrel (PLAVIX) 75 MG tablet Take 1 tablet (75 mg total) by mouth daily. 90 tablet 3 025 2025 Active atorvastatin (LIPITOR) 80 MG tabletIndication s:Hyperlipidemia associated with type 2 diabetes mellitus ([facility]) Take 1 tablet (80 mg total) by mouth nightly at bedtime. 90 tablet 025 Active Dapagliflozin Propanediol (FARXIGA) 5 MG TabIndications:T ype 2 diabetes mellitus without complication, without long-term current use of insulin ([facility]) Take 5 mg by mouth daily. 30 tablet 2 025 Active furosemide (LASIX) 20 MG tabletIndication s:Edema, unspecified type TAKE 1 TABLET BY MOUTH EVERY DAY NEEDED 90 tablet 025 Active metoprolol succinate ER (TOPROL-XL) 25 MG 24 hr tablet Take 1 tablet (25 mg total) by mouth 2 (two) times a day. 180 tablet 025 Active lisinopril (PRINIVIL) 10 MG tabletIndication s:Hypertension associated with type 2 diabetes mellitus (CMS/HCC HHS/HCC) Take 1 tablet (10 mg total) by mouth daily. 90 tablet 1 025 Active ezetimibe (ZETIA) 10 MG tablet TAKE 1 TABLET BY MOUTH EVERY DAY 90 tablet 025 Active glipiZIDE XL (GLUCOTROL XL) 10 MG 24 hr tabletIndication s:Type 2 diabetes mellitus without complication, without long-term current use of insulin (CMS/HCC HHS/HCC) TAKE 1 TABLET (10 MG TOTAL) BY MOUTH DAILY WITH BREAKFAST. DO NOT BREAK OR CRUSH TABLET 90 tablet 025 Active metFORMIN ER (GLUCOPHAGE-XR) 500 MG 24 hr tabletIndication s:Type 2 diabetes mellitus without complication, without long-term current use of insulin (CMS/HCC HHS/HCC) TAKE 3 TABLETS (1,500 MG TOTAL) BY MOUTH DAILY 270 tablet 025 Active ezetimibe (ZETIA) 10 MG tablet Take 1 tablet (10 mg total) by mouth daily. 30 tablet 8 024 2024 Discontinued glipiZIDE XL (GLUCOTROL XL) 10 MG 24 hr tabletIndication s:Type 2 diabetes mellitus without complication, without long-term current use of insulin (CMS/HCC HHS/HCC) TAKE 1 TABLET (10 MG TOTAL) BY MOUTH DAILY WITH BREAKFAST. DO NOT BREAK OR CRUSH TABLET 90 tablet 025 2024 Discontinued metFORMIN ER (GLUCOPHAGE-XR) 500 MG 24 hr tabletIndication s:Type 2 diabetes mellitus without complication, without long-term current use of insulin (CMS/HCC HHS/HCC) TAKE 3 TABLETS (1,500 MG TOTAL) BY MOUTH DAILY 270 tablet 025 2024 Discontinued metoprolol succinate ER (TOPROL-XL) 25 MG 24 hr tablet Take 1 tablet (25 mg total) by mouth 2 (two) times a day. 025 2024 Discontinued(R eorder) lisinopril (PRINIVIL) 5 MG tablet Take 1 tablet (5 mg total) by mouth daily. 30 tablet 3 025 2024 Discontinued(D ose adjustment) Active Problems Problem Noted Date Diagnosed Date Osteopenia of multiple sites 12/15/2024 S/P mitral valve replacement 10/27/2024 Thrombocytopenia 09/12/2024 Severe mitral valve stenosis 07/07/2024 Dyspnea on exertion 06/11/2024 New onset seizure 01/08/2023 Stage 3a chronic kidney disease (CKD) 06/06/2022 Class 1 obesity due to exces s calories with serious comorbidity and body mass index (BMI) of 32.0 to 32.9 in adult 05/02/2020 Vitamin D deficiency 05/02/2020 Hyperlipidemia associated with type 2 diabetes m ellitus 09/26/2016 Diabetes mellitus 08/12/2016 Predisposition to allergic reaction 07/22/2016 Hypertension associated with type 2 diabetes wesley litus 06/26/2016 History of hepatitis C 06/26/2016 Tobacco dependence syndrome 06/26/2016 Resolved Problems Problem Noted Date Diagnosed Date Resolved Date Family history of colon cancer 05/02/2020 12/01/2020 Encounters Date Type Department Care Team Description 02/03/2025 Travel 01/14/2025 10:18 AM CDT - 01/14/2025 11:59 PM CDT Hospital Encounter [facility] Mammography [address] [place] [address] Meme Mlian, DO Discharge Disposition: Home or Self Care (Routine Discharge) 01/14/2025 Travel 01/11/2025 MyChart Message Enc [facility] Family & Internal Medicine - [address] [phone] Meme Milan, Lisinopril 01/11/2025 MyChart Message Enc [facility] [phone] Pedrito Rai MD Metoprolo 12/28/2024 MyChart Message Enc [facility] Internal [address] [address] Meme Milan, DO No farxigia 12/17/2024 Scan [facility], [address] [address] Scanned, Doc Pccl 12/15/2024 8:00 AM CDT Office Visit [address] [address] Meme Milan, DO Follow Up (Patient is here for a 3 month follow up.); Hypertension; Hyperlipidemia; Anemia; Diabetes 12/15/[address] [address] Meme Milan, DO Record Request 12/15/2024 Results Follow-Up [address] [phone] Meme Milan, DO HEMOGLOBIN, GLYCOSYLATED, TSH W/REFLEX, ALBUMIN URINE RANDOM W/CREATININE, Additional followed-up results: 2 12/15/[address] [address] Meme Milan, DO Record Request 12/15/2024 Travel 11/18/2024 10:51 AM CDT - 11/18/2024 11:59 PM CDT Hospital Encounter [facility] Non [place] [address] Pedrito Rai MD Discharge Disposition: Home or Self Care (Routine Discharge) 11/18/2024 Results Follow-Up [facility], [address] [address] Jasmina Sparrow RN USE ECHOCARDIOGRAM 11/18/2024 Travel 11/08/2024 Results Follow-Up [facility] [address] [phone] Meme Milan DO COMPREHENSIVE METABOLIC PANEL, CBC W/DIFF AUTOMATED 11/08/2024 Telephone [facility], [address] [address] Pedrito Rai MD Schedule Test 11/08/2024 Orders Only [facility], [place] [address] [place] [address] Pedrito Rai MD 11/05/2024 10:00 AM CDT Laboratory Only [facility] Internal [address] [phone] Meme Milan DO 11/05/2024 9:30 AM CDT Office Visit [facility] [address] [phone] Pedrito Rai MD Mitral Valve Disorders (Follow up) 11/05/2024 Orders Only [address] [phone] Sandra Montoya, AIRDOX FITTER 11/05/2024 Travel from Last 3 Months Immunizations Immunization Administration Dates Next Due Arexvy Respiratory Syncytial Virus (RSV, adjuvanted) 0.5 mL, PF 06/16/2024 COVID-19 Vaccine (Generic) 10/09/2020,09/18/2020 Fluzone High Dose (IIV, trivalent, 0.5mL) 2023 Fluzone High Dose - >Age 65 (Prefilled Syringe) 02/15/2022,12/22/2020 Influenza Adult (Generic) 12/21/2022,02/15/2022 PFIZER COVID-19 (ORIGINAL FO RMULATION, PURPLE CAP) mRNA, LNP-S, PF, 30 MCG/0.3 ML DOSE 03/29/2021,10/09/2020,09/18/2020 Pneumococcal (Pneumovax 23) 12/28/2021 Pneumococcal (Prevnar 13) 12/01/2020 Shingrix 01/22/2021,11/01/2020 Tdap (Generic) 06/28/2014 Family History Medical History Relation Comments Aneurysm Brother 1 Hypertension Brother 1 Aneurysm Brother 2 Asthma Daughter Diabetes Father Heart Attack Father Heart Disease Father Hypertension Father Alzheimers Mother Stroke Mother Diabetes Sister Heart Attack Sister Kidney Disease Sister Stroke Sister Relation Status Comments Brother 1 Alive Brother 2 Daughter Father Maternal Grandfather Maternal Grandmother Mother Paternal Grandfather Paternal Grandmother Sister Alive Social History Tobacco Use Types Packs/Day Years Used Date Smoking Tobacco: Former Cigarettes 1 25 Q uit: 03/21/2024 Passive Smoke Exposure: Current Smokeless Tobacco: Never Tobacco Cessation:Counseling Given: No Comments:Provider to drug abuse counselor Alcohol Use Standard Drinks/Week Comments Not Currently 0 (1 standard drink = 0.6 oz pur e alcohol) PHQ-2 Answer Date Recorded Patient Health Questionnaire-2 Score 0 05/19/2024 Comments No Sex and Gender Information Value Date Recorded Sex Assigned at Female 05/05/2024 12:32 PM COMPUTED TOMOGRAPHY SCANNER OPERATOR Legal Sex Female 10:17 AM COMPUTED TOMOGRAPHY SCANNER OPERATOR Gender Identity Female 12/25/2021 9:32 AM CDT Sexual Orientation Not on file Last Filed Vital Signs Vital Sign Reading Time Taken Comments Blood Pressure 136/80 12/15/2024 8:11 AM CDT Pulse 71 12/15/2024 7:58 AM CDT Temperature 36.1 C (97 F) 12/15/2024 7:58 AM CDT Respiratory Rate 18 09/21/2024 10:45 AM CDT Oxygen Saturation 98% 12/15/2024 7:58 AM CDT Inhaled Oxygen Concentration - - Weight 85.4 kg (188 lb 3.2 oz) 12/15/2024 7:58 A M CDT Height 160 cm (5' 3) 12/15/2024 7:58 AM CDT Body Mass Index 33.34 12/15/2024 7:58 AM CDT Plan of Treatment Upcoming Encounters Date Type Department Care Team (Late st Contact Info) Description 02/04/2025 2:15 PM CDT Office Visit [facility] [phone] Pedrito Rai MD [address] [facility] [address] [facility] [place] [address] 03/21/2025 9:40 AM COMPUTED TOMOGRAPHY SCANNER OPERATOR Office Visit [facility] Family & Internal Medicine - [address] [phone] Meme Milan DO [address] [place] [address] Health Maintenance Due Date Last Done Comments Hepatitis A Vaccines (1 of 2 - Risk 2-dose series) 1973 Lung Cancer Screening 2004 Annual Medicare Wellness Visit 12/07/2019 Diabetes: Retinopathy Eye Exam 01/15/2023 01/15/2022 Mammogram Screening 11/05/2024 11/06/2023, 11/06/2023, 06/24/2022 COVID-19 Vaccine ( season) 2024 12/23/2023, 12/21/2022, 03/29/2021, Additional history exists Colorectal Cancer Screening FIT-DNA (3 Years) 01/08/2025 01/08/2022, 01/08/2022 Influenza Adult (#1) 2025 12/31/2023, 12/21/2022, 02/15/2022, Additional history exists Lipid Panel 02/24/2025 02/25/2024, 12/21, 12/28/2021, Additional history exists Hemoglobin A1C 06/17/2025 12/15/2024, 07/21, 08/12/2024, Additional history exists DTaP, Tdap and Td Vaccines (2 - Td or Tdap) 08/17/2025 06/28/2014 Postponed from 06/28/2024 (No Insurance Coverage) Kidney Health Evaluation 12/15/2025 12/15/2024 Zoster Vaccines Completed 01/22/2021, 11/01/2020 Pneumococcal Vaccine: 50+ Years Completed 12/28/2021, 12/01/2020 PHQ-2 (Physician Castana) Completed 05/19/2024 RSV Immunization or 60+ Years Completed 06/16/2024 Hepatitis C Completed 11/05/2024, 05/23, 05/05/2024, Additional history exists Dexa Scan (General) Completed 01/14/2025, 3 Meningococcal B Vaccine Aged Out No l onger eligible based on patient's age to complete this topic Meningococcal Vaccine Aged Out No mony dali eligible based on patient's age to complete this topic RSV Immunizations Under 20 Months Aged Out No longer eligible based on patient's age to complete this topic Procedures Procedure Name Priority Date/Time Associated Diagnosis Comments BONE DENSITY/DEXA Routine 01/14/2025 10: 50 AM CDT Postmenopausal VITAMIN D, 25 OH Routine 12/15/2024 9:17 AM CDT Type 2 diabetes mellitus without complication, without long-term current use of insulin ([facility]/HCC HHS/HCC) Hyperlipidemia associated with type 2 diabetes mellitus (CMS/HCC HHS/HCC) Hypertension associated with type 2 diabetes mellitus (CMS/HCC HHS/HCC) Vitamin D deficiency ALBUMIN URINE RANDOM W/CREATININE Routine 12/15/2024 9:17 AM CDT Type 2 diabetes mellitus without complication, without long-term current use of insulin (CMS/HCC HHS/HCC) Hyperlipidemia associated with type 2 diabetes mellitus (CMS/HCC HHS/HCC) Hypertension associated with type 2 diabetes mellitus (CMS/HCC HHS/HCC) TSH W/REFLEX Routine 12/15/2024 9:17 AM CDT Type 2 diabetes mellitus without complication, without long-term current use of insulin (CMS/HCC HHS/HCC) Hyperlipidemia associated with type 2 diabetes mellitus (CMS/HCC HHS/HCC) Hypertension associated with type 2 diabetes mellitus (CMS/HCC HHS/HCC) COLLECTION VENOUS BLOOD VENIPUNCTURE Routine 12/15/2024 8:22 AM CDT Type 2 diabetes mellitus without complication, without long-term current use of insulin (CMS/HCC HHS/HCC) Hyperlipidemia associated with type 2 diabetes mellitus (CMS/HCC HHS/HCC) Hypertension associated with type 2 diabetes mellitus ([facility] HHS/HCC) COLLECT.CAPILLARY (FNGR,HEEL,EAR) Routine 12/15/2024 7:53 AM CDT Type 2 diabetes mellitus without complication, without long-term current use of insulin ([facility]) HEMOGLOBIN, GLYCOSYLATED Routine 12/15/2024 Type 2 diabetes mellitus without complication, without long-term current use of insulin ([facility]) USE ECHOCARDIOGRAM Routine 11/18/2024 11 :55 AM CDT Severe mitral valve stenosis Hypertension associated with type 2 diabetes mellitus ([facility]) Dyspnea on exertion S/P mitral valve replacement COLLECTION VENOUS BLOOD VENIPUNCTURE Routine 11/05/2024 10:25 AM CDT Anemia, unspecified type CBC W/DIFF AUTOMATED Routine 11/05/2024 10:25 AM CDT Anemia, unspecified type COMPREHENSIVE METABOLIC PANEL Routine 11/05/2024 10:25 AM CDT Anemia, unspecified type LIPID PANEL Routine 02/25/2024 8:49 AM COMPUTED TOMOGRAPHY SCANNER OPERATOR Type 2 diabetes mellitus without complication, without long-term current use of insulin ([facility]) Hyperlipidemia associated with type 2 diabetes mellitus ([facility]) Stage 3a chronic kidney disease (CKD) ([facility] MAMMOGRAM GENERIC (SCAN ORDER) 11/06/2023 DIABETIC RETINOPATHY EXAM (NEGATIVE)(SCAN ORDER) Routine 01/15/2022 COLOGUARD (EXACT SCIENCE) Routine 01/08/2022 3:45 AM CDT Screening for malignant neoplasm of colon from Last 3 Months or Most Recently Relevant to Health Maintenance Results * BONE DENSITY/DEXA (01/14/2025 10:50 AM CDT) Anatomical Region Laterality Modality Bone Mammography 01/14/2025 10:5 4 AM CDT Impressions 01/14/2025 10:55 AM CDT IMPRESSION: WHO Classification: Osteopenia. RECOMMENDATIONS: All patients should ensure an adequate intake of dietary calcium and vitamin D. The NOF recommend adults under the age of 50 need 1000 mg of calcium and 400-800 IU of vitamin D daily. Effective therapy for the prevention and treatment of osteoporosis include bisphosphonates. Follow-up: People with diagnosed cases of osteoporosis or at high risk for fracture should have regular bone mineral density test. For patients eligible for Medicare, routine testing is allowed once every 2 years. Testing frequency can be increased to one year for patients who have rapidly progressing disease, those who are receiving or discontinuing medical therapy to restore bone mass, or have additional risk factors. Referred By: MEME MILAN Interpreted By: Nathan Olguin MD, 01/14/2025 10:54 AM Narrative 01/14/2025 10:55 AM CDT [facility] [address] [place] [address] EXAMINATION: BONE DENSITY/DEXA INDICATIONS: Osteopenia COMPARISON: None TECHNIQUE: DEXA bone mineral density evaluation was performed in the AP projection over the lumbar spine and both hips utilizing standard imaging techniques. ASSESSMENT: The BMD measured at the AP spine L1-L4 is 1.026 g/cm? with a T-score of -0.2. The BMD measured at the left femoral neck is 0.627 g/cm? with a T-score of -2.0. The BMD measured at the left hip is 0.775 g/cm? with a T-score of -1.4. The BMD measured at the right femoral neck is 0.624 g/cm? with a T-score of - 2.0. The BMD measured at the right hip is 0.782 g/cm? with a T-score of -1.3. FRAX 10-year fracture risk: Major Osteoporotic Fracture: 11% Hip Fracture: 2.1% Procedure Note Nathan Olguin MD - 01/14/2025 [facility] [address] [place] [address] EXAMINATION: BONE DENSITY/DEXA INDICATIONS: Osteopenia COMPARISON: None TECHNIQUE: DEXA bone mineral density evaluation was performed in the APprojection over the lumbar spine and both hips utilizing standard imagingtechniques. ASSESSMENT: The BMD measured at the AP spine L1-L4 is 1.026 g/cm? with a T-score of-0.2. The BMD measured at the left femoral neck is 0.627 g/cm? with a T-score of-2.0. The BMD measured at the left hip is 0.775 g/cm? with a T-score of -1.4. The BMD measured at the right femoral neck is 0.624 g/cm? with a T-scoreof -2.0. The BMD measured at the right hip is 0.782 g/cm? with a T-score of -1.3. FRAX 10-year fracture risk: Major Osteoporotic Fracture: 11% Hip Fracture: 2.1% IMPRESSION: WHO Classification: Osteopenia. RECOMMENDATIONS: All patients should ensure an adequate intake of dietary calcium andvitamin D. The NOF recommend adults under the age of 50 need 1000 mg ofcalcium and 400-800 IU of vitamin D daily. Effective therapy for theprevention and treatment of osteoporosis include bisphosphonates. Follow-up: People with diagnosed cases of osteoporosis or at high risk for fractureshould have regular bone mineral density test. For patients eligible forMedicare, routine testing is allowed once every 2 years. Testing frequencycan be increased to one year for patients who have rapidly progressingdisease, those who are receiving or discontinuing medical therapy torestore bone mass, or have additional risk factors. Referred By: MEME MILAN Interpreted By: Nathan Olguin MD, 01/14/2025 10:54 AM Meme Milan DO DEXA Final Re sult * TSH W/REFLEX (12/15/2024 9:17 AM CDT) TSH 2.302 0.358 - 3.740 uIU/ML 12/15/2024 4:57 PM CDT [facility] 12/15/2024 9:17 AM CDT Meme Milan DO LABORATORY Final Re sult Performing Organization Address [facility] Co de Phone Number [facility] [address] [place] [address], * (ABNORMAL) ALBUMIN URINE RANDOM W/CREATININE (12/15/2024 9:17 AM CDT) MICROALBUMIN (U) 91.6(H) <20 MG/L 12/16/19 3:50 PM CDT [facility] CREATININE RANDOM (U) 123.9 MG/DL 12/15/2024 3:50 PM CDT [facility] ALBUMIN/CREAT RATIO 73.9(H) <30 MG/G 12/15/2024 3:50 PM CDT [facility] URINE SPECIMEN / Unknown 12/15/2024 9:17 AM CDT Meme Milan DO URINE ORDERABLES Final R esult Performing Organization Address [facility] de Phone Number [address] [address], * VITAMIN D, 25 OH (12/15/2024 9:17 AM CDT) VITAMIN D 25 HYDROXY TOTAL S/P/B 51.8 30 - 100 NG/ML 12/15/2024 4:57 PM CDT [facility] Comment: DEFICIENT <20 INSUFFICIENT 20-30 SUFFICIENT 30-100 12/15/2024 9:17 AM CDT Meme Milan DO LABORATORY Final Re sult [facility] [address] [facility] [place] [address], [place] [phone] * (ABNORMAL) HEMOGLOBIN, GLYCOSYLATED (12/15/2024) HGB A1C 7.8(A) % [facility] 12/15/2024 Meme Milan DO LABORATORY Final Re sult Performing Organization Address [facility] Co de Phone Number [facility] [address] [place] [address], [place] * USE ECHOCARDIOGRAM (11/18/2024 11:55 AM CDT) Anatomical Region Laterality Modality Cardiac Echocardiogram 11/18/2024 10:5 7 AM CDT Narrative 11/18/2024 12:15 PM CDT Echocardiography Report Pat.Name: SANDRA CARRERADeepak Humphrey Pat.ID: [id number] .Date: 11/18/2024 Exam Time: 10:57:00 AM Study Type:ECHO WITH CARDIAC DOPPLER COMP Height: 63 in Weight: 187 lb BSA: 1.88 m2 Age: 8 1955,68Y Sex: F BP: 142/78 Sonogrphr: Sandra Royal Pat. Stat.:Outpatient CPT - 4: 68389 Reason for Study:Mitral valve replacement, Dyspnea on exertion, Hypertension Procedures: 2D, M-mode, Doppler, Color Flow, The study quality is technically difficult. Race: W ++++++++++++++++++++++++++++++++++++ SUMMARY: ++++++++++++++++++++++++++++++++++++ The left ventricular size is normal. The left ventricular systolic function is normal. Estimated left ventricular ejection fraction is 55-60%. Mild concentric left ventricular hypertrophy. Left ventricular diastolic function is abnormal. The mean left atrial pressure is indeterminate. Wall motion appears normal in all segments. The left atrial volume is severely increased (>48 ml/M2). Trivial pericardial effusion, without tamponade physiology. No evidence of aortic valve stenosis. The peak velocity across the aortic valve measures 1.9m/sec with a peak gradient of 14.4mmHg and a mean gradient of 7.1mmHg. The calculated aortic valve area is 2.0cm2. No evidence of aortic valve regurgitation. Aortic valve calcification with normal systolic leaflet excursion. Hemodynamically insignficant LVOT dynamic obstruction Bio prosthetic valve with normal function. No evidence of prosthetic mitral valve regurgitation. The mean gradient across the mitral valve is 4.5 at a heart rate of 75. A trace-mild of tricuspid regurgitation. Unable to reliably quantitate pulmonary systolic pressure. ++++++++++++++++++++++++++++++++++++ FINDINGS: ++++++++++++++++++++++++++++++++++++ LV: The left ventricular size is normal. The left ventricular systolic function is normal. Estimated left ventricular ejection fraction is 55-60%. Mild concentric left ventricular hypertrophy. The septal E/e' is indeterminate at 8-15. The lateral E/e' is elevated at >11. Left ventricular diastolic function is abnormal. The mean left atrial pressure is indeterminate. WM: Wall motion appears normal in all segments. RV: The right ventricular size is normal. IVS: Intraventricular septum is normal. LA: The left atrial volume is severely increased (>48 ml/M2). RA: The right atrial size is normal. IAS: Atrial septum is normal. CHAIM: Trivial pericardial effusion, without tamponade physiology. AO: Normal aortic root. PA: Estimated right atrial pressure of 3 mmHg. Unable to reliably quantitate pulmonary systolic pressure. SVn: Inferior vena cava is normal. Inferior vena cava shows >50% collapse with respiration consistent with normal right atrial pressure. AV: The aortic valve is trileaflet. No evidence of aortic valve stenosis. The peak velocity across the aortic valve measures 1.9m/sec with a peak gradient of 14.4mmHg and a mean gradient of 7.1mmHg. The calculated aortic valve area is 2.0cm2. No evidence of aortic valve regurgitation. Aortic valve calcification with normal systolic leaflet excursion. MV: Bio prosthetic mitral valve. Bio prosthetic valve with normal function. No evidence of prosthetic mitral valve regurgitation. The mean gradient across the mitral valve is 4.5 at a heart rate of 75. PV: Pulmonic valve not well visualized. TV: A trace-mild of tricuspid regurgitation. No evidence of tricuspid valve stenosis. ++++++++++++++++++++++++++++++++++++ MEASUREMENTS: ++++++++++++++++++++++++++++++++++++ DOPPLER TV Forward Flow TV E/A 1.52 Aortic Valve Cardiovascular 2.04 cm Aortic Root Efe 3.8 cm LVOT/AoV (CONTINUOUS IMPROVEMENT ENGINEER) ( 0.43 Left atrial efe 4.61 cm AV Antegrade Flow Peak Velocity ( 1.9 m/s Mean Velocity ( 1.23 m/s Velocity Time I 31.1 cm AV Antegrade Flow Simplified Bernoulli Gradient pressu 14.4 mmHg Gradient pressu 7.1 mmHg AV Continuity Equation by Velocity Time Integral Aortic Valve Ar 1.89 cm2 AoV Area Index 1.01 Left Ventricle Stroke Volume ( 58.7 ml Cardiac Output 4.4 liter per minute LV Antegrade Flow Peak Velocity ( 0.82 m/s Mean Velocity ( 0.61 m/s Velocity Time I 18 cm LV Antegrade Flow Simplified Bernoulli Gradient pressu 2.7 mmHg Gradient pressu 1.6 mmHg Mitral Valve Mitral Valve E- 0.34 second Mean Myocardial 9.1 centimeter/second Myocardial Velo 10.1 centimeter/second Ratio of Mitral 13.8 Myocardial Velo 8.1 centimeter/second Ratio of Mitral 12.5 Heart rate 75 Heart beat per minute Ratio of Mitral 15.5 Mitral Valve E 0.85 MV Antegrade Flow Mitral Valve E- 1.26 m/s Velocity Time I 45.3 cm Mitral Valve A- 1.48 m/s Mean Velocity ( 1.04 m/s Peak Velocity ( 1.61 m/s MV Antegrade Flow Simplified Bernoulli Gradient pressu 10.4 mmHg Gradient pressu 4.7 mmHg PV Antegrade Flow Peak Velocity ( 0.74 m/s Mean Velocity ( 0.55 m/s Velocity Time I 15.4 cm PV Antegrade Flow Simplified Bernoulli Gradient pressu 2.2 mmHg Gradient pressu 1.3 mmHg Tricuspid Valve Tricuspid Valve 0.59 m/s Tricuspid Valve 0.39 m/s 2D Left Ventricle LVIDd 4.32 cm (3.6-5.2) LVEDV BP 39.1 ml LV EDV 35.2 ml LVESV BP 15.5 ml LV ESV 14.7 ml LV EF 58.2 % LV EDV 40.8 ml Left Ventricula -13.4 % LV ESV 15.6 ml LV EF 61.8 % LV EF BP 60.4 % Left Ventricula -15.4 % Left Ventricula -14.4 % Left Atrium Left Atrium Vol 39.5 ml/m2 LA Biplane Left Atrium Vol 74.3 ml LA Single Plane Left Atrium pk 6.31 cm Left Atrium pk 6.18 cm Left Atrium Vol 56.4 ml Left Atrium Vol 97 ml LV Teichholz Interventricula 0.98 cm Left Ventricle 2.45 cm Left Ventricle 1.31 cm Heart rate 78 Heart beat per minute Right Atrium RA sys Area 15.9 cm2 Right Ventricle Right Ventricul 3.3 cm RVIDd 3.21 cm <Electronic Signature> 11/18/2024 12:15 PM Pedrito Rai M.D. Procedure Note Pedrito Rai MD - 11/18/2024 Echocardiography Report Pat.Name: XIMENA CARRERA Pat.ID: [id number] .Date: 11/18/2024 Exam Time: 10:57:00 AM Study Type:ECHO WITH CARDIAC DOPPLER COMP Height: 63 in Weight: 187 lb BSA: 1.88 m2 Age: 8 1955,68Y Sex: F BP: 142/78 Sonogrphr: Sandra Royal Pat. Stat.:Outpatient CPT - 4: [id number] Reason for Study:Mitral valve replacement, Dyspnea on exertion, Hypertension Procedures: 2D, M-mode, Doppler, Color Flow, The study quality is technically difficult. Race: W ++++++++++++++++++++++++++++++++++++ SUMMARY: ++++++++++++++++++++++++++++++++++++ The left ventricular size is normal. The left ventricular systolic function is normal. Estimated left ventricular ejection fraction is 55-60%. Mild concentric left ventricular hypertrophy. Left ventricular diastolic function is abnormal. The mean left atrial pressure is indeterminate. Wall motion appears normal in all segments. The left atrial volume is severely increased (>48 ml/M2). Trivial pericardial effusion, without tamponade physiology. No evidence of aortic valve stenosis. The peak velocity across the aortic valve measures 1.9m/sec with a peak gradient of 14.4mmHg and a mean gradient of 7.1mmHg. The calculated aortic valve area is 2.0cm2. No evidence of aortic valve regurgitation. Aortic valve calcification with normal systolic leaflet excursion. Hemodynamically insignficant LVOT dynamic obstruction Bio prosthetic valve with normal function. No evidence of prosthetic mitral valve regurgitation. The mean gradient across the mitral valve is 4.5 at a heart rate of 75. A trace-mild of tricuspid regurgitation. Unable to reliably quantitate pulmonary systolic pressure. ++++++++++++++++++++++++++++++++++++ FINDINGS: ++++++++++++++++++++++++++++++++++++ LV: The left ventricular size is normal. The left ventricular systolic function is normal. Estimated left ventricular ejection fraction is 55-60%. Mild concentric left ventricular hypertrophy. The septal E/e' is indeterminate at 8-15. The lateral E/e' is elevated at >11. Left ventricular diastolic function is abnormal. The mean left atrial pressure is indeterminate. WM: Wall motion appears normal in all segments. RV: The right ventricular size is normal. IVS: Intraventricular septum is normal. LA: The left atrial volume is severely increased (>48 ml/M2). RA: The right atrial size is normal. IAS: Atrial septum is normal. CHAIM: Trivial pericardial effusion, without tamponade physiology. AO: Normal aortic root. PA: Estimated right atrial pressure of 3 mmHg. Unable to reliably quantitate pulmonary systolic pressure. SVn: Inferior vena cava is normal. Inferior vena cava shows >50% collapse with respiration consistent with normal right atrial pressure. AV: The aortic valve is trileaflet. No evidence of aortic valve stenosis. The peak velocity across the aortic valve measures 1.9m/sec with a peak gradient of 14.4mmHg and a mean gradient of 7.1mmHg. The calculated aortic valve area is 2.0cm2. No evidence of aortic valve regurgitation. Aortic valve calcification with normal systolic leaflet excursion. MV: Bio prosthetic mitral valve. Bio prosthetic valve with normal function. No evidence of prosthetic mitral valve regurgitation. The mean gradient across the mitral valve is 4.5 at a heart rate of 75. PV: Pulmonic valve not well visualized. TV: A trace-mild of tricuspid regurgitation. No evidence of tricuspid valve stenosis. ++++++++++++++++++++++++++++++++++++ MEASUREMENTS: ++++++++++++++++++++++++++++++++++++ DOPPLER TV Forward Flow TV E/A 1.52 Aortic Valve Cardiovascular 2.04 cm Aortic Root Efe 3.8 cm LVOT/AoV (CONTINUOUS IMPROVEMENT ENGINEER) ( 0.43 Left atrial efe 4.61 cm AV Antegrade Flow Peak Velocity ( 1.9 m/s Mean Velocity ( 1.23 m/s Velocity Time I 31.1 cm AV Antegrade Flow Simplified Bernoulli Gradient pressu 14.4 mmHg Gradient pressu 7.1 mmHg AV Continuity Equation by Velocity Time Integral Aortic Valve Ar 1.89 cm2 AoV Area Index 1.01 Left Ventricle Stroke Volume ( 58.7 ml Cardiac Output 4.4 liter per minute LV Antegrade Flow Peak Velocity ( 0.82 m/s Mean Velocity ( 0.61 m/s Velocity Time I 18 cm LV Antegrade Flow Simplified Bernoulli Gradient pressu 2.7 mmHg Gradient pressu 1.6 mmHg Mitral Valve Mitral Valve E- 0.34 second Mean Myocardial 9.1 centimeter/second Myocardial Velo 10.1 centimeter/second Ratio of Mitral 13.8 Myocardial Velo 8.1 centimeter/second Ratio of Mitral 12.5 Heart rate 75 Heart beat per minute Ratio of Mitral 15.5 Mitral Valve E 0.85 MV Antegrade Flow Mitral Valve E- 1.26 m/s Velocity Time I 45.3 cm Mitral Valve A- 1.48 m/s Mean Velocity ( 1.04 m/s Peak Velocity ( 1.61 m/s MV Antegrade Flow Simplified Bernoulli Gradient pressu 10.4 mmHg Gradient pressu 4.7 mmHg PV Antegrade Flow Peak Velocity ( 0.74 m/s Mean Velocity ( 0.55 m/s Velocity Time I 15.4 cm PV Antegrade Flow Simplified Bernoulli Gradient pressu 2.2 mmHg Gradient pressu 1.3 mmHg Tricuspid Valve Tricuspid Valve 0.59 m/s Tricuspid Valve 0.39 m/s 2D Left Ventricle LVIDd 4.32 cm (3.6-5.2) LVEDV BP 39.1 ml LV EDV 35.2 ml LVESV BP 15.5 ml LV ESV 14.7 ml LV EF 58.2 % LV EDV 40.8 ml Left Ventricula -13.4 % LV ESV 15.6 ml LV EF 61.8 % LV EF BP 60.4 % Left Ventricula -15.4 % Left Ventricula -14.4 % Left Atrium Left Atrium Vol 39.5 ml/m2 LA Biplane Left Atrium Vol 74.3 ml LA Single Plane Left Atrium pk 6.31 cm Left Atrium pk 6.18 cm Left Atrium Vol 56.4 ml Left Atrium Vol 97 ml LV Teichholz Interventricula 0.98 cm Left Ventricle 2.45 cm Left Ventricle 1.31 cm Heart rate 78 Heart beat per minute Right Atrium RA sys Area 15.9 cm2 Right Ventricle Right Ventricul 3.3 cm RVIDd 3.21 cm <Electronic Signature> 11/18/2024 12:15 PM Pedrito Rai M.D. us Pedrito Rai MD ECHO Final Result * (ABNORMAL) COMPREHENSIVE METABOLIC PANEL (11/05/2024 10:25 AM CDT) [facility] SODIUM S/P/B 141 136 - 145 MMOL/L 11/05/2024 3:58 PM [facility] POTASSIUM S/P/B 5.0 3.5 - 5.1 MMOL/L 11/05/2024 3:58 PM CDT [facility] CHLORIDE S/P/B 105 98 - 107 MMOL/L 11/05/2024 3:58 PM CDT [facility] CO2 25.3 21 - 32 MMOL/L 11/05/2024 3:58 PM T [facility] GLUCOSE 209(H) 70 - 99 MG/DL 11/05/2024 3:58 PM CDT [facility] BUN 22(H) 7 - 18 MG/DL 11/05/2024 3:58 PM [facility] CREATININE S/P/B 1.16(H) 0.55 - 1.02 MG/DL 11/05/2024 3:58 PM T [facility] CALCIUM S/P/B 8.8 8.4 - 10.5 MG/DL 11/05/2024 3:58 PM [facility] BILIRUBIN TOTAL S/P/B 0.5 0.2 - 1.0 MG/DL 11/05/2024 3:58 PM [facility] ALKALINE PHOSPHATASE S/P/B 80 55 - 142 U/L 11/05/2024 3:58 PM T [facility] AST 14(L) 15 - 37 U/L 11/05/2024 3:58 PM T [facility] ALT 20 14 - 59 U/L 11/05/2024 3:58 PM CDT [facility] TOTAL PROTEIN S/P/B 6.6 6.4 - 8.2 G/DL 11/05/2024 3:58 PM [facility] ALBUMIN S/P/B 3.6 3.4 - 5.0 G/DL 11/05/2024 3:58 PM T [facility] ANION GAP 10.7 5 - 15 MMOL/L 11/05/2024 3:58 PM CDT [facility] Comment:REFERENCE RANGE NOT ESTABLISHED OSMOLALITY (CALC) 301 MOSM/KG 025 3:58 PM CDT [facility] Comment:REFERENCE RANGE NOT ESTABLISHED GFR ESTIMATE 51(L) >90 ML/MIN/1. 73 M2 11/05/2024 3:58 PM CDT [facility] GFR NOTES GFR REFERENCE S: 11/05/2024 3:58 PM CDT [facility] Comment: THE ESTIMATED GFR IS CALCULATED USING [...] ml/min/1.73 m2 G5,KIDNEY FAILURE: <15 ml/min/1.73 m2 11/05/2024 10:2 5 AM CDT Meme Milan DO LABORATORY Final Re sult [facility] [address] [place] [address], * (ABNORMAL) CBC W/DIFF AUTOMATED (11/05/2024 10:25 AM CDT) WBC 8.74 4.00 - 10.80 x10'3/uL 11/05/2024 3:10 PM CDT [facility] RBC 4.01(L) 4.10 - 5.40 x10'6/uL 11/05/2024 3:10 PM CDT [facility] HGB 11.3(L) 12.0 - 16.0 G/DL 11/05/2024 3:10 PM CDT [facility] HCT 35.1(L) 36.0 - 47.0 % 11/05/2024 3:10 PM CDT [facility] MCV 87.5 78.0 - 100.0 FL 11/05/2024 3:10 PM CDT [facility] MCH 28.2 27.0 - 31.0 PG 11/05/2024 3:10 PM CDT [facility] MCHC 32.2(L) 33.0 - 36.0 G/DL 11/05/2024 3:10 PM CDT [facility] RDW 14.7(H) 11.5 - 14.5 % 11/05/2024 3:10 PM CDT [facility] PLT 198 150 - 350 x10'3/uL 11/05/2024 3:10 PM CDT [facility] MPV 12.4(H) 7.4 - 10.4 FL 11/05/2024 3:10 PM CDT [facility] DIFFERENTIAL TYPE AUTOMATED DIFFERENTIAL 11/05/2024 3:10 PM CDT [facility] NEUTROPHILS % 63.8 % 11/05/2024 3:10 PM CDT [facility] LYMPHOCYTES % 23.2 % 11/05/2024 3:10 PM CDT [facility] MONOCYTES % 6.3 % 11/05/2024 3:10 PM CDT [facility] EOSINOPHILS % 5.7 % 11/05/2024 3:10 PM CDT [facility] BASOPHILS % 0.7 % 11/05/2024 3:10 PM CDT [facility] IMMATURE GRANS % 0.3 % 11/05/2024 3:10 PM CDT [facility] ABS. NEUTROPHILS 5.57 1.60 - 8.30 x10'3/uL 11/05/2024 3:10 PM CDT [facility] ABS. LYMPHOCYTES 2.03 0.80 - 4.70 x10'3/uL 11/05/2024 3:10 PM CDT [facility] ABS. MONOCYTES 0.55 0.00 - 1.50 x10'3/uL 11/05/2024 3:10 PM CDT [facility] ABS. EOSINOPHILS 0.50(H) 0.00 - 0.40 x10'3/uL 11/05/2024 3:10 PM CDT [facility] ABS. BASOPHILS 0.06 0.00 - 0.20 x10'3/uL 11/05/2024 3:10 PM CDT [facility] ABS. IMMATURE GRANULOCYTES 0.03 0.00 - 0.03 x10'3/uL 11/05/2024 3:10 PM CDT [facility] 11/05/2024 10:2 5 AM CDT us Meme Milan DO LABORATORY Final Re sult [facility] [address] [place] [address], * (ABNORMAL) LIPID PANEL (02/25/2024 8:49 AM COMPUTED TOMOGRAPHY SCANNER OPERATOR) CHOLESTEROL 202(H) <200 MG/DL 02/25/2024 4:38 PM COMPUTED TOMOGRAPHY SCANNER OPERATOR [facility] TRIGLYCERIDES 172(H) <150 MG/DL 02/25/2024 4:38 PM COMPUTED TOMOGRAPHY SCANNER OPERATOR [facility] HDL 53 >40 MG/DL 02/25/2024 4:38 PM COMPUTED TOMOGRAPHY SCANNER OPERATOR [facility] LDL-C 115(H) <100 MG/DL 02/25/2024 4:38 PM COMPUTED TOMOGRAPHY SCANNER OPERATOR [facility] VLDL CALCULATION 34(H) 5 - 28 MG/DL 02/25/2024 4:38 PM COMPUTED TOMOGRAPHY SCANNER OPERATOR [facility]NA CHOL/HDL RATIO 3.8 0.0 - 4.0 02/25/2024 4:38 PM COMPUTED TOMOGRAPHY SCANNER OPERATOR [facility] LDL/HDL 2.2(H) 0.41 - 2.13 02/25/2024 4:38 PM COMPUTED TOMOGRAPHY SCANNER OPERATOR [facility] NON HDL CHOLESTEROL 149(H) <140 MG/DL 02/25/2024 4:38 PM COMPUTED TOMOGRAPHY SCANNER OPERATOR [facility] 02/25/2024 8:49 AM COMPUTED TOMOGRAPHY SCANNER OPERATOR Meme Milan DO LABORATORY Final Re sult Performing Organization Address City/[facility]/ZIP Co de Phone Number [facility] [address] [place] [address], * MAMMOGRAM GENERIC (SCAN ORDER) (11/06/2023) Anatomical Region Laterality Modality Other 11/06/2023 Next audience Group Scanned SCANNING Final Resu lt * DIABETIC RETINOPATHY EXAM (NEGATIVE)(SCAN) (01/15/2022) Next audience Group Scanned SCANNING Final Resu lt Performing Organization Address City/[facility] Co de Phone Number [facility] * COLOGUARD (EXACT SCIENCE) (01/08/2022 3:45 AM CDT) COLOGUARD RESULT Negative Negative [employer] (CLIA #:[id number]) Comment: NEGATIVE TEST RESULT. A negative Cologuard [...] screened with both Cologuard and colonoscopy. (Kimmie Gill al, N Engl J Med 2014;370(14):1831-9460) The normal value (reference range) for this assay is negative. COLOGUARD RE-SCREENING RECOMMENDATION: Periodic colorectal cancer screening is an important part of preventive healthcare for asymptomatic individuals at average risk for colorectal cancer. Following a negative Cologuard result, the [place] [employer] and U.S. Multi-Society Task Force screening guidelines recommend a Cologuard re-screening interval of 3 years. References: [place] [employer] Guideline for Colorectal Cancer Screening: https://www.cancer.org/cancer/ztpcs-mfkcaw-blktsu/xuxjxbjlb-swdnazqiq-nyfanbd/ac s-rec ommendations.html.; Toñito DK, Talha CONNOLLY, Justine TELLEZ, Colorectal Cancer Screening: Recommendations for Physicians and Patients from the U.S. Multi-Society Task Force on Colorectal Cancer Screening , Am J Gastroenterology 2017; 112:6433-4466. TEST DESCRIPTION: Composite algorithmic analysis of stool [...] colonoscopy. (Kimmie Walker, N Engl J Med 2014;370(14):7481-0057.) Cologuard may produce a false negative or false positive result (no colorectal cancer or precancerous polyp present at colonoscopy follow up). A negative Cologuard test result does not guarantee the absence of CRC or advanced adenoma (pre-cancer). The current Cologuard screening interval is every 3 years. ([place] [employer] and U.S. Multi-Society Task Force). Cologuard performance data in a 10,000 patient pivotal study using colonoscopy as the reference method can be accessed at the following location: www.[employer].Geliyoo/results. Additional description of the Cologuard test process, warnings and precautions can be found at www.cologuard.com. STOOL STOOL SPECIMEN / Unknown 01/08/2022 3:45 AM CDT 01/09/2022 3:35 PM CDT us Meme Arguelles Luchtefricardo DO BODY FLUIDS AND STOOLS O RDERABLES Final Result Performing Organization Address City/State/[facility] Co de Phone Number [employer] ([address]) [address] [place] [address], [employer] (Closed) (CLIA #:[id number]) [address] [place] [address] from Last 3 Months or Most Recently Relevant to Health Maintenance Insurance [employer] MEDICARE MEDICAID Advance Directives * Full Code (Latest Code Status on File) Date Activated Date Inactivated Comments 07/01/2024 10:25 AM 07/01/2024 4:38 PM Care Teams Outreach Manager Relationship Specialty Start Date End Date Meme Milan DO [address] [place] [address] PCP - General FAMILY PRACTICE 06/06/22
--- OUTSIDE RECORDS SUMMARY | 2025-02-03 17:21 | XMS_ITS | Encounter Summary ---
Author Organization [facility] Address [facility] [place] [address] Care Team Providers Care Engine Monitor Name Role Phone Dandy Duarte DO Primary Care Provider + Encounter Details Date Type Department Care Team (Late st Contact Info) Description 06/27/2024 MyChart Message Enc [facility] Medical [facility] Family & Internal Medicine [facility] [address] [place] [address] Dandy Duarte DO [address] [place] [phone] Low blood pressure Social History Tobacco Use Types Packs/Day Years Used Date Smoking Tobacco: Former Cigarettes 1 25 Q uit: 03/21/2024 Passive Smoke Exposure: Current Smokeless Tobacco: Never Comments:Provider to primary substance abuse counselor Alcohol Use Standard Drinks/Week Comments Not Currently 0 (1 standard drink = 0.6 oz pur e alcohol) PHQ-2 Answer Date Recorded Patient Health Questionnaire-2 Score 0 05/19/2024 Comments No Sex and Gender Information Value Date Recorded Sex Assigned at Female 05/05/2024 12:32 PM HOUSEKEEPING SUPERVISOR Legal Sex Female 10:17 AM HOUSEKEEPING SUPERVISOR Gender Identity Female 12/25/2021 9:32 AM CDT [...] Description 02/04/2025 2:15 PM CDT Office Visit [facility] [address] Pedrito Rai MD 3 [facility] [address] [place] [phone] 03/21/2025 9:40 AM HOUSEKEEPING SUPERVISOR Office Visit [facility] Medical Group Family & Internal Medicine - [address] [phone] Dandy Duarte DO [address] [place] [phone] documented as of this encounter Visit Diagnoses Not on filedocumented in this encounter Additional Health Concerns Assessment Noted Time PHQ-9 Depression Total Score: 0 05/02/19 21 10:38 AM HOUSEKEEPING SUPERVISOR documented as of this encounter Care Teams Engine Monitor Relationship Specialty Start Date End Date Dandy Duarte DO [address] [place] [phone] PCP - General FAMILY PRACTICE 06/06/22 documented as of this encounter
--- OUTSIDE RECORDS SUMMARY | 2025-02-03 17:21 | XMS_ITS | Encounter Summary ---
Author Organization [facility] Address [facility] [place] [address] Care Team Providers Care School Resource Officer Name Role Phone Dandy Duarte DO Primary Care Provider + Encounter Details Date Type Department Care Team (Late st Contact Info) Description 10/15/2024 MyChart Message Enc [facility] Family & Internal Medicine [id number] [place] [phone] Dandy Duarte DO [address] [place] [phone] Iron supplement Social History Tobacco Use Types Packs/Day Years Used Date Smoking Tobacco: Former Cigarettes 1 25 Q uit: 03/21/2024 Passive Smoke Exposure: Current Smokeless Tobacco: Never Comments:Provider to drug abuse counselor Alcohol Use Standard Drinks/Week Comments Not Currently 0 (1 standard drink = 0.6 oz pur e alcohol) PHQ-2 Answer Date Recorded Patient Health Questionnaire-2 Score 0 05/19/2024 Comments No Sex and Gender Information Value Date Recorded Sex Assigned at Female 05/05/2024 12:32 PM OIL WELL GUN PERFORATOR OPERATOR Legal Sex Female 10:17 AM OIL WELL GUN PERFORATOR OPERATOR Gender Identity Female 12/25/2021 9:32 AM CDT Sexual Orientation Not on file documented as of this encounter Plan of Treatment Upcoming Encounters Date Type Department Care Team (Late st Contact Info) Description 02/04/2025 2:15 PM CDT Office Visit [facility] [phone] Pedrito Rai MD [id number] [place] [phone] 03/21/2025 9:40 AM OIL WELL GUN PERFORATOR OPERATOR Office Visit [facility] Family & Internal Medicine - [address] [phone] Dandy Duarte DO [address] [place] [phone] documented as of this encounter Visit Diagnoses Not on filedocumented in this encounter Additional Health Concerns Assessment Noted Time PHQ-9 Depression Total Score: 0 05/02/19 21 10:38 AM OIL WELL GUN PERFORATOR OPERATOR documented as of this encounter Care Teams School Resource Officer Relationship Specialty Start Date End Date Dandy Duarte DO [address] [place] [address] PCP - General FAMILY PRACTICE 06/06/22 documented as of this encounter
== END 2025-02-03 22:34 | disposition home or self-care (01) ==
LOC: ANHED 15:13
PROVIDERS: Emergency Provider Physician Assistant; PCP Student in an Organized Health Care Education/Training Program
DX: S00.81XA Abrasion of other part of head, initial encounter (principal); I34.0 Nonrheumatic mitral (valve) insufficiency; I10 Essential (primary) hypertension; E11.9 Type 2 diabetes mellitus without complications; E78.5 Hyperlipidemia, unspecified; E66.9 Obesity, unspecified; Z68.32 Body mass index [BMI] 32.0-32.9, adult; Z87.891 Personal history of nicotine dependence; Z79.899 Other long term (current) drug therapy; Z79.84 Long term (current) use of oral hypoglycemic drugs; W18.09XA Striking against other object with subsequent fall, initial encounter
CPT/HCPCS: 70450; 70486; 72125; 99284